=== PATIENT | female | born 1935 | race Caucasian/White ===

== ENCOUNTER 2018-01-18 05:50 | Day surgery (SDC) | payer MEDICARE, OTHER ==
[2018-01-18] MEDS ORDERED: Dextrose 5%-Lactated Ringers 1,000 ML IV SCH (06:30)
[2018-01-18] MEDS ORDERED: fentaNYL 100 MCG/2 ML SDV ONE (07:03)
[2018-01-18] MEDS ORDERED: Propofol 200 MG/20 ML SDV ONE (07:03)
[2018-01-18] MEDS ORDERED: Pantoprazole 40 MG Vial IVPUSH ONE (08:39)
--- NOTE | 2018-01-25 13:55 | OR ---
DATE OF PROCEDURE: 01/18/2018 PREOPERATIVE DIAGNOSES: 1. History of Masterson esophagus. 2. Indications for screening colonoscopy. POSTOPERATIVE DIAGNOSES: 1. 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 2. Intact Shonda fundoplication with slight recurrence of hiatal hernia. 3. Uncomplicated left colonic diverticulosis. OPERATIVE PROCEDURE: 1. Esophagogastroduodenoscopy with biopsy of esophagogastric junction for histologic evaluation. 2. Flexible colonoscopy. ANESTHESIA: IV sedation. INDICATIONS FOR PROCEDURE: An 82-year-old presenting with some recurrent symptoms of gastroesophageal reflux disease. She is status post a previous Shonda fundoplication and also has a history of Masterson esophagus. To evaluate these issues, the patient is undergoing upper GI endoscopy. She is also due for a screening colonoscopy. Potential risks including bleeding and perforation were discussed, and the patient wishes to proceed. DETAILS OF PROCEDURE: The patient was taken to the operating room, placed in left lateral decubitus position. IV sedation was administered after which the upper GI endoscope was passed orally through the length of the esophagus and into the stomach with retroflexion view of the fundus, thereafter through the pyloric channel, and junction of the third and fourth portions of the duodenum. The findings included some mild inflammatory changes at the esophagogastric junction. This was associated with an intact Shonda fundoplication with small recurrence of the hiatal hernia perhaps in the range of a centimeter or so. The bladder was confirmed by retroflexion within the body of the stomach. There was no gross evidence of neoplasia or stricturing, i.e., no signs of Masterson esophagus having become more neoplastic. Biopsies of remainder of the stomach and the visualized portion of the duodenum were unremarkable. Biopsies were then obtained from esophagogastric junction, sent for histologic evaluation. Minimal bleeding from the biopsy sites was seen and the procedure was then concluded. Attention was then taken to the colonoscopy. Initial digital rectal exam was performed, was unremarkable. Colonoscope was then passed into the rectum with retroflexion revealing uncomplicated hemorrhoidal columns. The scope was eventually passed to the level of the cecum. The prep was good with only a small amount of liquid stool being present. The scope was then withdrawn, and the patient was noted to have no evidence of colitis, polyps, or other signs of neoplasia. There was some uncomplicated diverticulosis within the left side of the colon. Otherwise, no additional abnormalities were noted. The scope was then withdrawn, and the procedure concluded. The patient was taken to the recovery room in satisfactory condition. At this point, we will change the patient from omeprazole 20 mg a day to Protonix 40 mg daily. She is instructed to take Tums and/or Gaviscon p.r.n. for heartburn or epigastric pain. She should have a repeat upper endoscopy in 2 years for surveillance of Masterson esophagus. Emeka Elizabeth MD /[id number]
== END 2018-01-18 10:45 | disposition home or self-care (01) ==
LOC: JP.SDS 05:50
PROVIDERS: ATTEND Surgery
DX: Z12.11 Encounter for screening for malignant neoplasm of colon (principal); K57.30 Diverticulosis of large intestine without perforation or abscess without bleeding; K22.70 Barrett's esophagus without dysplasia; K44.9 Diaphragmatic hernia without obstruction or gangrene; K21.9 Gastro-esophageal reflux disease without esophagitis; E74.39 Other disorders of intestinal carbohydrate absorption; E03.9 Hypothyroidism, unspecified; Z79.899 Other long term (current) drug therapy; Z88.1 Allergy status to other antibiotic agents; Z98.890 Other specified postprocedural states
CPT/HCPCS: 43239; 45378; 88305; C9113; J2704; J3010; J7042

== ENCOUNTER 2019-05-29 10:05 | Emergency (ER) | payer MEDICARE, OTHER ==
--- NOTE | 2019-05-29 11:18 | EDM.PDOC ---
ED HPI GENERAL MEDICAL PROBLEM - General Chief Complaint: General Stated Complaint: FEELING DIZZY,WEAK,HOT FLASH Time Seen by Provider: 05/29/19 11:10 Source of Information: Reports: Patient History Limitations: Reports: No Limitations - History of Present Illness INITIAL COMMENTS - FREE TEXT/NARRATIVE: pt arrived with a history in the past month of frequent episodes of vertigo. She had an episode this am which lasted about 10 minutes. Last week she had an episode that lasted for about 4-5 hours. Onset: Other ( short episode today. ) Duration: Hour(s): Location: Reports: Abdomen Associated Symptoms: Reports: No Other Symptoms Headache Pain Score (Numeric/FACES): 2 - Related Data Allergies Allergy/AdvReac Type Severity Reaction Status Date / Time metronidazole AdvReac Nausea and Verified 05/29/19 10:27 Vomiting Home Meds: Home Meds Acetaminophen with Codeine [Acetaminophen-Cod #3] 1 - 2 tab PO Q4HR PRN [History] Levothyroxine [Sythroid] 100 mcg PO DAILY 01/14/18 [History] Multivit-Min/Iron Fum/Folic AC [Ipbwe-Lwxkyna-Deedlmkq Tablet] 1 tab PO DAILY [History] Omeprazole 20 mg PO BIDMEALS 01/14/18 [History] Past Medical History HEENT History: Reports: Cataract, Impaired Vision Other HEENT History: wears glasses Gastrointestinal History: Reports: Cholelithiasis, GERD, Hiatal Hernia, Other ( See Below) Other Gastrointestinal History: Barretts Esophagus Genitourinary History: Reports: None 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: Musculoskeletal History: Reports: Back Pain, Chronic Endocrine/Metabolic History: Reports: Hypothyroidism Oncologic (Cancer) History: Reports: Squamous Cell Carcinoma - Infectious Disease History Infectious Disease History: Reports: Measles - Past Surgical History Head Surgeries/Procedures: Reports: None HEENT Surgical History: Reports: Adenoidectomy, Cataract Surgery, Tonsillectomy GI Surgical History: Reports: Cholecystectomy, Colonoscopy, EGD Female Surgical History: Reports: Hysterectomy Endocrine Surgical History: Reports: None Musculoskeletal Surgical History: Reports: None Oncologic Surgical History: Reports: Other (See Below) Other Oncologic Surgeries/Procedures: removed Dermatological Surgical History: Reports: None Social & Family History - Family History Family Medical History: Noncontributory - Tobacco Use Smoking Status *Q: Never Smoker - Caffeine Use Caffeine Use: Reports: Coffee, Soda, Tea - Recreational Drug Use Recreational Drug Use: No ED ROS GENERAL - Review of Systems Review Of Systems: See Below Constitutional: Reports: No Symptoms HEENT: Reports: No Symptoms Respiratory: Reports: No Symptoms Cardiovascular: Reports: No Symptoms Endocrine: Reports: No Symptoms GI/Abdominal: Reports: No Symptoms : Reports: No Symptoms Musculoskeletal: Reports: No Symptoms Skin: Reports: No Symptoms Neurological: Reports: Dizziness, Other (pt has epiodes where he feels like the room is spinning and she is off balance. ) Psychiatric: Reports: No Symptoms ED EXAM, GENERAL - Physical Exam Exam: See Below Free Text/Narrative:: pt Pt arrived after having an episode of vertigo this am. Exam Limited By: No Limitations General Appearance: Alert, Anxious Ears: Normal TMs Nose: Normal Inspection Throat/Mouth: Normal Inspection Head: Atraumatic Neck: Normal Inspection Respiratory/Chest: No Respiratory Distress Cardiovascular: Regular Rate, Rhythm GI/Abdominal: Soft, Non-Tender (Female) Exam: Deferred Rectal (Female) Exam: Deferred Back Exam: Normal Inspection Course - Vital Signs Last Recorded V/S: Last Vital Signs Temp 35.8 C 05/29/19 10:41 Pulse 65 05/29/19 10:41 Resp 9 L 05/29/19 10:41 BP 138/66 05/29/19 10:41 Pulse Ox 95 05/29/19 10:41 Orthostatic Blood Pressure [ 130/63 Standing] Orthostatic Blood Pressure [ 134/64 Sitting] Orthostatic Blood Pressure [ 138/66 Supine] - Orders/Labs/Meds Orders: Active Orders 24 hr Category Date Time Status CULTURE URINE [RM] Stat Lab 05/29/19 11:35 Received Levofloxacin/Dextrose 5%-Water [Levaquin in D5W 500 MG/ Med 05/29/19 12:13 Active 100 ML] 500 mg Premix Bag 1 bag IV ONETIME Sodium Chloride 0.9% [Normal Saline] 1,000 ml Med 05/29/19 11:45 Active IV ASDIRECTED Medication Orders Sodium Chloride (Normal Saline) 1,000 mls @ 999 mls/hr IV ASDIRECTED RANDY Last Admin: 05/29/19 12:01 Dose: 999 mls/hr Levofloxacin/Dextrose 500 mg/ (Premix) 100 mls @ 100 mls/hr IV ONETIME ONE Stop: 05/29/19 13:12 Last Admin: 05/29/19 12:20 Dose: 100 mls/hr Labs: Laboratory Tests 05/29/19 05/29/19 05/29/19 Range/Units 11:01 11:01 11:08 WBC 6.4 (4.5-11.0) K/uL RBC 4.48 (3.30-5.50) M/uL Hgb 13.8 (12.0-15.0) g/dL Hct 42.5 (36.0-48.0) % MCV 95 (80-98) fL MCH 31 (27-31) pg MCHC 33 (32-36) % Plt Count 271 (150-400) K/uL Neut % (Auto) 51 (36-66) % Lymph % (Auto) 34 (24-44) % [place] % (Auto) 10 H (2-6) % Eos % (Auto) 4 (2-4) % Baso % (Auto) 1 (0-1) % Sodium 140 (140-148) mmol/L Potassium 4.1 (3.6-5.2) mmol/L Chloride 101 (100-108) mmol/L Carbon Dioxide 28 (21-32) mmol/L Anion Gap 10.9 (5.0-14.0) mmol/L BUN 17 (7-18) mg/dL Creatinine 1.2 H (0.6-1.0) mg/dL Est Cr Clr Drug Dosing 31.96 mL/min Estimated GFR (MDRD) 43 L (>60) Glucose 118 H (74-106) mg/dL Calcium 9.1 (8.5-10.1) mg/dL Total Bilirubin 0.5 (0.2-1.0) mg/dL AST 14 L (15-37) U/L ALT 23 (12-78) U/L Alkaline Phosphatase 81 (46-116) U/L Total Protein 7.6 (6.4-8.2) g/dL Albumin 3.6 (3.4-5.0) g/dL Globulin 4.0 H (2.3-3.5) g/dL Albumin/Globulin Ratio 0.9 L (1.2-2.2) Urine Color Yellow (YELLOW) Urine Appearance Cloudy A (CLEAR) Urine pH 6.5 (5.0-8.0) Ur Specific [place] 1.025 (1.008-1.030) Urine Protein Negative (NEGATIVE) mg/dL Urine Glucose (UA) Negative (NEGATIVE) mg/dL Urine Ketones Negative (NEGATIVE) mg/dL Urine Occult Blood Negative (NEGATIVE) Urine Nitrite Negative (NEGATIVE) Urine Bilirubin Negative (NEGATIVE) Urine Urobilinogen 0.2 (0.2-1.0) EU/dL Ur Leukocyte Esterase Moderate H (NEGATIVE) Urine RBC Not seen (0-5) Urine WBC 50-75 H (0-5) Ur Epithelial Cells Few Amorphous Sediment Not seen Urine Bacteria Many Urine Mucus Not seen Meds: Medications Generic Name Dose Route Start Last Admin Trade Name Freq PRN Reason Stop Dose Admin Sodium Chloride 1,000 mls @ 999 mls/hr 05/29/19 11:45 05/29/19 12:01 Normal Saline IV 999 mls/hr ASDIRECTED RANDY Administration Levofloxacin/Dextrose 500 mg/ 100 mls @ 100 mls/hr 05/29/19 12:13 05/29/19 12 :20 Premix IV 05/29/19 13:12 100 mls/hr ONETIME ONE Administration - Re-Assessments/Exams Free Text/Narrative Re-Assessment/Exam: 05/29/19 12:56 cat scan of the head is neg. Her urine is infected. She is dehydrated. Departure - Departure Time of Disposition: 12:17 Disposition: Home, Self-Care 01 Condition: Fair Clinical Impression: UTI (urinary tract infection), Vertigo, Dehydration - Discharge Information Referrals: Ezio Villarreal MD [Primary Care Provider] - Forms: ED Department Discharge Care Plan Goals: push fluids, cipro 500mg bid for 7 days, use yogurt or probiotic while on the antibiotic, antivert 25 tid as needed for vertigo, follow up with Dr Villarreal in 1 week. Sepsis Event Note - Evaluation Sepsis Screening Result: No Definite Risk - Focused Exam Vital Signs: Vital Signs Temp Pulse Resp BP Pulse Ox 05/29/19 10:41 35.8 C 65 9 L 138/66 95 05/29/19 10:25 35.8 C 66 17 130/63 96 Date Exam was Performed: 05/29/19 Time Exam was Performed: 13:11 - My Orders Last 24 Hours: My Active Orders 05/29/19 11:35 CULTURE URINE [RM] Stat 05/29/19 11:45 Sodium Chloride 0.9% [Normal Saline] 1,000 ml IV ASDIRECTED 05/29/19 12:13 Levofloxacin/Dextrose 5%-Water [Levaquin in D5W 500 MG/100 ML] 500 mg Premix Bag 1 bag IV ONETIME - Assessment/Plan Last 24 Hours: My Active Orders 05/29/19 11:35 CULTURE URINE [RM] Stat 05/29/19 11:45 Sodium Chloride 0.9% [Normal Saline] 1,000 ml IV ASDIRECTED 05/29/19 12:13 Levofloxacin/Dextrose 5%-Water [Levaquin in D5W 500 MG/100 ML] 500 mg Premix Bag 1 bag IV ONETIME
[2019-05-29] MEDS ORDERED: Sodium Chloride 0.9% 1,000 ML IV SCH (11:45)
--- NOTE | 2019-05-29 11:59 | CRLCT ---
Episodes of vertical. Technique noncontrast head CT scan No comparison studies are available. FINDINGS: Axial noncontrast images through the brain parenchyma demonstrates no acute intracranial hemorrhage or mass. No midline shift. No abnormal extra-axial air fluid collections. Paranasal sinuses mastoid air cells, skull and scalp appears unremarkable. IMPRESSION: No acute intracranial hemorrhage or mass. Please note that all CT scans at this facility use dose modulation, iterative reconstruction, and/or weight-based dosing when appropriate to reduce radiation dose to as low as reasonably achievable. Dictated by Jessica Mcneil MD @ May 29 2019 11:54AM Signed by Dr. Jessica Mcneil @ May 29 2019 11:58AM
[2019-05-29] MEDS ORDERED: Levofloxacin/Dextrose 5%-Water 500 MG in Premix Bag 1 BAG IV ONE (12:13)
== END 2019-05-29 14:00 | disposition home or self-care (01) ==
LOC: JP.ED 10:05
DX: E86.0 Dehydration (principal); N39.0 Urinary tract infection, site not specified; K21.9 Gastro-esophageal reflux disease without esophagitis; E03.9 Hypothyroidism, unspecified; Z88.8 Allergy status to other drugs, medicaments and biological substances; Z79.899 Other long term (current) drug therapy
CPT/HCPCS: 36415; 70450; 80053; 81001; 85025; 87086; 87088; 87186; 96365; 99284; J1956; J7030; 99283

== ENCOUNTER 2019-07-25 21:30 | Emergency (ER) | payer MEDICARE, OTHER ==
[2019-07-25] MEDS ORDERED: methylPREDNISolone Sodium Succinate 125 MG/2 ML SDV IVPUSH ONE (22:05)
[2019-07-25] MEDS ORDERED: Albuterol 0.083% 2.5 MG/3 ML Neb Soln NEB ONE (22:05)
--- NOTE | 2019-07-25 22:09 | EDM.PDOC ---
ED HPI GENERAL MEDICAL PROBLEM - General Chief Complaint: Respiratory Problem Stated Complaint: WHEEZING, COUGH Time Seen by Provider: 07/25/19 22:07 Source of Information: Reports: Patient History Limitations: Reports: No Limitations - History of Present Illness INITIAL COMMENTS - FREE TEXT/NARRATIVE: pt had influ mid June and she has had a cough since that time. She did suddenly become sob tonight. Onset: Sudden, Other ( the sob started suddenly tonight. ) Duration: Hour(s): Location: Reports: Chest Associated Symptoms: Reports: Cough, Shortness of Breath chest Pain Score (Numeric/FACES): 1 - Related Data Allergies Allergy/AdvReac Type Severity Reaction Status Date / Time metronidazole AdvReac Nausea and Verified 07/25/19 21:50 Vomiting Home Meds: Home Meds Levothyroxine [Sythroid] 100 mcg PO DAILY 01/14/18 [History] Multivit-Min/Iron Fum/Folic AC [Jzmxf-Naxgjaj-Zfdggtio Tablet] 1 tab PO DAILY [History] Omeprazole 20 mg PO DAILY 01/14/18 [History] Albuterol Sulfate [Albuterol Sulfate Hfa] 1 - 2 puff INH Q4H PRN 07/25/19 [ History] Aspirin 81 mg PO DAILY 07/25/19 [History] Past Medical History HEENT History: Reports: Cataract, Impaired Vision Other HEENT History: wears glasses Gastrointestinal History: Reports: Cholelithiasis, GERD, Hiatal Hernia, Other ( See Below) Other Gastrointestinal History: Barretts Esophagus Genitourinary History: Reports: None 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: Musculoskeletal History: Reports: Back Pain, Chronic Endocrine/Metabolic History: Reports: Hypothyroidism Oncologic (Cancer) History: Reports: Squamous Cell Carcinoma - Infectious Disease History Infectious Disease History: Reports: Measles - Past Surgical History Head Surgeries/Procedures: Reports: None HEENT Surgical History: Reports: Adenoidectomy, Cataract Surgery, Tonsillectomy GI Surgical History: Reports: Cholecystectomy, Colonoscopy, EGD Female Surgical History: Reports: Hysterectomy Endocrine Surgical History: Reports: None Musculoskeletal Surgical History: Reports: None Oncologic Surgical History: Reports: Other (See Below) Other Oncologic Surgeries/Procedures: removed Dermatological Surgical History: Reports: None Social & Family History - Family History Family Medical History: Noncontributory - Tobacco Use Smoking Status *Q: Never Smoker - Caffeine Use Caffeine Use: Reports: Coffee - Recreational Drug Use Recreational Drug Use: No ED ROS GENERAL - Review of Systems Review Of Systems: See Below Constitutional: Reports: No Symptoms HEENT: Reports: No Symptoms Respiratory: Reports: Shortness of Breath, Wheezing, Cough, Other (pt did have resp precautions taken. ) Cardiovascular: Reports: No Symptoms Endocrine: Reports: No Symptoms GI/Abdominal: Reports: No Symptoms : Reports: No Symptoms Musculoskeletal: Reports: No Symptoms Skin: Reports: No Symptoms ED EXAM, GENERAL - Physical Exam Exam: See Below Free Text/Narrative:: pt had a meal with her friend marie and she suddenly developed sob, She has had some wheezing since she had influ. She called Dr Villarreal recently and he ordered a albuterol inhaler. Exam Limited By: No Limitations General Appearance: Alert, Anxious, Moderate Distress, Other (pt is very sob but she is not havng any chest pain. She has not got a fever and she has not traveled recently. ) Ears: Normal TMs Nose: Normal Inspection Throat/Mouth: Normal Inspection Head: Atraumatic Neck: Normal Inspection Respiratory/Chest: Decreased Breath Sounds, Rhonchi, Wheezing, Other (pt was quite labored with her breathing but she did have a good o2 sat. ) Cardiovascular: Regular Rate, Rhythm GI/Abdominal: Soft, Non-Tender (Female) Exam: Deferred Rectal (Female) Exam: Deferred Back Exam: Normal Inspection Extremities: Normal Inspection Neurological: Alert, Oriented, Normal Cognition Psychiatric: Normal Affect Course - Vital Signs Last Recorded V/S: Last Vital Signs Temp 36.2 C 07/25/19 21:44 Pulse 89 07/25/19 21:44 Resp 22 H 07/25/19 21:44 BP 160/67 H 07/25/19 21:44 Pulse Ox 97 07/25/19 21:44 - Orders/Labs/Meds Labs: Laboratory Tests 07/25/19 07/25/19 07/25/19 Range/Units 22:30 22:30 22:30 WBC 8.7 (4.5-11.0) K/uL RBC 4.32 (3.30-5.50) M/uL Hgb 13.2 (12.0-15.0) g/dL Hct 40.5 (36.0-48.0) % MCV 94 (80-98) fL MCH 31 (27-31) pg MCHC 33 (32-36) % Plt Count 356 (150-400) K/uL Neut % (Auto) 49 (36-66) % Lymph % (Auto) 33 (24-44) % [place] % (Auto) 9 H (2-6) % Eos % (Auto) 8 H (2-4) % Baso % (Auto) 1 (0-1) % Sodium 138 L (140-148) mmol/L Potassium 4.2 (3.6-5.2) mmol/L Chloride 101 (100-108) mmol/L Carbon Dioxide 27 (21-32) mmol/L Anion Gap 14.2 H (5.0-14.0) mmol/L BUN 17 (7-18) mg/dL Creatinine 1.2 H (0.6-1.0) mg/dL Est Cr Clr Drug Dosing 31.96 mL/min Estimated GFR (MDRD) 43 L (>60) Glucose 96 (74-106) mg/dL Calcium 9.6 (8.5-10.1) mg/dL Total Bilirubin 0.3 (0.2-1.0) mg/dL AST 15 (15-37) U/L ALT 24 (12-78) U/L Alkaline Phosphatase 86 (46-116) U/L Troponin I < 0.017 (0.000-0.056) ng/mL Total Protein 7.8 (6.4-8.2) g/dL Albumin 3.4 (3.4-5.0) g/dL Globulin 4.4 H (2.3-3.5) g/dL Albumin/Globulin Ratio 0.8 L (1.2-2.2) Urine Color (YELLOW) Urine Appearance (CLEAR) Urine pH (5.0-8.0) Ur Specific [place] (1.008-1.030) Urine Protein (NEGATIVE) mg/dL Urine Glucose (UA) (NEGATIVE) mg/dL Urine Ketones (NEGATIVE) mg/dL Urine Occult Blood (NEGATIVE) Urine Nitrite (NEGATIVE) Urine Bilirubin (NEGATIVE) Urine Urobilinogen (0.2-1.0) EU/dL Ur Leukocyte Esterase (NEGATIVE) Urine RBC (0-5) Urine WBC (0-5) Ur Epithelial Cells Amorphous Sediment Urine Bacteria Urine Mucus 07/25/19 Range/Units 22:39 WBC (4.5-11.0) K/uL RBC (3.30-5.50) M/uL Hgb (12.0-15.0) g/dL Hct (36.0-48.0) % MCV (80-98) fL MCH (27-31) pg MCHC (32-36) % Plt Count (150-400) K/uL Neut % (Auto) (36-66) % Lymph % (Auto) (24-44) % [place] % (Auto) (2-6) % Eos % (Auto) (2-4) % Baso % (Auto) (0-1) % Sodium (140-148) mmol/L Potassium (3.6-5.2) mmol/L Chloride (100-108) mmol/L Carbon Dioxide (21-32) mmol/L Anion Gap (5.0-14.0) mmol/L BUN (7-18) mg/dL Creatinine (0.6-1.0) mg/dL Est Cr Clr Drug Dosing mL/min Estimated GFR (MDRD) (>60) Glucose (74-106) mg/dL Calcium (8.5-10.1) mg/dL Total Bilirubin (0.2-1.0) mg/dL AST (15-37) U/L ALT (12-78) U/L Alkaline Phosphatase (46-116) U/L Troponin I (0.000-0.056) ng/mL Total Protein (6.4-8.2) g/dL Albumin (3.4-5.0) g/dL Globulin (2.3-3.5) g/dL Albumin/Globulin Ratio (1.2-2.2) Urine Color Yellow (YELLOW) Urine Appearance Clear (CLEAR) Urine pH 5.5 (5.0-8.0) Ur Specific [place] 1.020 (1.008-1.030) Urine Protein Negative (NEGATIVE) mg/dL Urine Glucose (UA) Negative (NEGATIVE) mg/dL Urine Ketones Negative (NEGATIVE) mg/dL Urine Occult Blood Negative (NEGATIVE) Urine Nitrite Negative (NEGATIVE) Urine Bilirubin Negative (NEGATIVE) Urine Urobilinogen 0.2 (0.2-1.0) EU/dL Ur Leukocyte Esterase Trace H (NEGATIVE) Urine RBC 0-5 (0-5) Urine WBC 0-5 (0-5) Ur Epithelial Cells Few Amorphous Sediment Not seen Urine Bacteria Few Urine Mucus Not seen Meds: Medications Discontinued Medications Generic Name Dose Route Start Last Admin Trade Name Alena BURKETTN Reason Stop Dose Admin Albuterol 2.5 mg 07/25/19 22:05 07/25/19 22:30 Proventil Neb Soln NEB 07/25/19 22:06 2.5 mg ONETIME ONE Administration Methylprednisolone Sodium Succinate 125 mg 07/25/19 22:05 07/25/19 22:30 Solu-Medrol IVPUSH 07/25/19 22:06 125 mg ONETIME ONE Administration - Re-Assessments/Exams Free Text/Narrative Re-Assessment/Exam: 07/27/19 07:20 pt had a chest xray which did not show any infiltrates. She does not have a fever but she is very whezzy. She was gioven a albuterol neb and solumedrol and she did improve alot. Her wbc was not elevated. Departure - Departure Time of Disposition: 23:39 Disposition: Home, Self-Care 01 Condition: Fair Clinical Impression: Bronchial spasm - Discharge Information Instructions: Bronchospasm, Adult, [id number] Referrals: PCP,None [Primary Care Provider] - Forms: ED Department Discharge Care Plan Goals: predisone 10mg 2 tabs tomorrow and 1 tab daily for 5 days, albuterol premixed 2.5 in 3 cc, appt with Dr Villarreal Thursday to recheck her breathing problem. Use the nebulizer qid. Sepsis Event Note - Evaluation Sepsis Screening Result: No Definite Risk - Focused Exam Date Exam was Performed: 07/27/19 Time Exam was Performed: 07:16
--- NOTE | 2019-07-25 23:10 | CRLCR ---
INDICATION: Shortness of breath TECHNIQUE: Chest 1 view COMPARISON: None FINDINGS: Cardiovascular and mediastinum: Normal heart size with atherosclerotic calcification. Lungs and pleural spaces: No pleural effusion or pneumothorax. Basilar discoid atelectasis. Bilateral bronchial wall thickening. Bones and soft tissues: No significant findings. IMPRESSION: Bilateral bronchial wall thickening which can be seen in bronchitis or reactive airways disease with basilar discoid atelectasis. Dictated by Moisés Cnatu MD @ Jul 25 2019 11:06PM Signed by Dr. Moisés Cantu @ Jul 25 2019 11:09PM
== END 2019-07-26 00:11 | disposition home or self-care (01) ==
LOC: JP.ED 21:30
DX: J98.01 Acute bronchospasm (principal); K21.9 Gastro-esophageal reflux disease without esophagitis; E03.9 Hypothyroidism, unspecified; Z79.82 Long term (current) use of aspirin; Z79.899 Other long term (current) drug therapy; Z88.8 Allergy status to other drugs, medicaments and biological substances
CPT/HCPCS: 36415; 71045; 80053; 81001; 84484; 85025; 93005; 93010; 94640; 96374; 99284; 99285; J2930

== ENCOUNTER 2019-08-05 04:50 | Emergency (ER) | payer MEDICARE, OTHER ==
--- NOTE | 2019-08-05 05:31 | EDM.PDOC ---
ED HPI GENERAL MEDICAL PROBLEM - General Chief Complaint: Respiratory Problem Stated Complaint: SOB/COUGH Time Seen by Provider: 08/05/19 05:15 Source of Information: Reports: Patient, Old Records, RN History Limitations: Reports: No Limitations - History of Present Illness INITIAL COMMENTS - FREE TEXT/NARRATIVE: 83 yo female presents for a cough. She sometimes coughs hard enough to result in SOB. No fever. Cough is nonproductive. Tried Mucinex without relief. Drove herself to the ER. Onset: Gradual Duration: Week(s): (4 weeks since she had Influenza), Constant Location: Reports: Chest Quality: Reports: Other (no pain) Severity: Moderate (cough) Improves with: Reports: None Worsens with: Reports: Other (unknown) Context: Reports: Other (see HPI) Associated Symptoms: Reports: Cough. 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 without relief.) Headache Pain Score (Numeric/FACES): 7 - Related Data Allergies Allergy/AdvReac Type Severity Reaction Status Date / Time metronidazole AdvReac Nausea and Verified 08/05/19 04:52 Vomiting Home Meds: Home Meds Levothyroxine [Sythroid] 100 mcg PO DAILY 01/14/18 [History] Multivit-Min/Iron Fum/Folic AC [Prcty-Nkarocw-Mtthqudw Tablet] 1 tab PO DAILY [History] Omeprazole 20 mg PO DAILY 01/14/18 [History] Albuterol Sulfate [Albuterol Sulfate Hfa] 1 - 2 puff INH Q4H PRN 07/25/19 [ History] Aspirin 81 mg PO DAILY 07/25/19 [History] Albuterol Sulfate 2.5 mg IH Q4H PRN 08/05/19 [History] Past Medical History HEENT History: Reports: Cataract, Impaired Vision Other HEENT History: wears glasses Gastrointestinal History: Reports: Cholelithiasis, GERD, Hiatal Hernia, Other ( See Below) Other Gastrointestinal History: Barretts Esophagus Genitourinary History: Reports: None 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: Musculoskeletal History: Reports: Back Pain, Chronic Endocrine/Metabolic History: Reports: Hypothyroidism Oncologic (Cancer) History: Reports: Squamous Cell Carcinoma - Infectious Disease History Infectious Disease History: Reports: Measles - Past Surgical History Head Surgeries/Procedures: Reports: None HEENT Surgical History: Reports: Adenoidectomy, Cataract Surgery, Tonsillectomy GI Surgical History: Reports: Cholecystectomy, Colonoscopy, EGD Female Surgical History: Reports: Hysterectomy Endocrine Surgical History: Reports: None Musculoskeletal Surgical History: Reports: None Oncologic Surgical History: Reports: Other (See Below) Other Oncologic Surgeries/Procedures: removed Dermatological Surgical History: Reports: None Social & Family History - Family History Family Medical History: Noncontributory - Caffeine Use Caffeine Use: Reports: Coffee - Recreational Drug Use Recreational Drug Use: No ED ROS GENERAL - Review of Systems Review Of Systems: See Below Constitutional: Reports: No Symptoms HEENT: Reports: Rhinitis (minimal) Respiratory: Reports: Shortness of Breath (only when she coughs hard), Cough. Denies: Wheezing, Pleuritic Chest Pain, Sputum, Hemoptysis Cardiovascular: Reports: No Symptoms GI/Abdominal: Reports: No Symptoms : Reports: No Symptoms Musculoskeletal: Reports: No Symptoms Skin: Reports: No Symptoms Neurological: Reports: No Symptoms ED EXAM, GENERAL - Physical Exam Exam: See Below Exam Limited By: No Limitations General Appearance: Alert, WD/WN, No Apparent Distress Eye Exam: Bilateral Eye: Normal Inspection Ears: Normal External Exam, Normal Canal, Hearing Grossly Normal, Normal TMs Ear Exam: Bilateral Ear: Auricle Normal, Canal Normal, TM normal Nose: Normal Inspection, No Blood Throat/Mouth: Normal Inspection, Normal Lips, Normal Oropharynx, Normal Voice, No Airway Compromise Head: Atraumatic, Normocephalic Neck: Normal Inspection Respiratory/Chest: No Respiratory Distress, Lungs Clear, No Accessory Muscle Use , Decreased Breath Sounds, Other (frequent dry cough). No: Wheezing Cardiovascular: Regular Rate, Rhythm, No Edema Back Exam: Normal Inspection Extremities: Normal Inspection, Normal Range of Motion, Non-Tender, No Pedal Edema Neurological: Alert, Oriented, CN II-XII Intact, Normal Cognition, No Motor/ Sensory Deficits Psychiatric: Normal Affect, Normal Mood Skin Exam: Warm, Dry, Intact, Normal Color, No Rash Course - Vital Signs Last Recorded V/S: Last Vital Signs Temp 35.9 C L 08/05/19 05:05 Pulse 102 H 08/05/19 05:05 Resp 20 08/05/19 05:05 BP 163/79 H 08/05/19 05:05 Pulse Ox 95 08/05/19 05:05 - Orders/Labs/Meds Labs: Laboratory Tests 08/05/19 Range/Units 05:28 WBC 12.4 H (4.5-11.0) K/uL RBC 4.32 (3.30-5.50) M/uL Hgb 13.5 (12.0-15.0) g/dL Hct 40.7 (36.0-48.0) % MCV 94 (80-98) fL MCH 31 (27-31) pg MCHC 33 (32-36) % Plt Count 395 (150-400) K/uL Departure - Departure Time of Disposition: 05:55 Disposition: Home, Self-Care 01 Condition: Fair Clinical Impression: Cough, Bronchitis - Discharge Information *PRESCRIPTION DRUG MONITORING PROGRAM REVIEWED*: No *COPY OF PRESCRIPTION DRUG MONITORING REPORT IN PATIENT JOSE R: No Instructions: Cough, Adult, [id number] Referrals: Ezio Villarreal MD [Primary Care Provider] - Forms: ED Department Discharge Additional Instructions: Take Robitussin AC as directed for cough. Take doxycycline as directed for bronchitis. See your doctor for recheck next week, sooner if worse. Sepsis Event Note - Evaluation Sepsis Screening Result: No Definite Risk - Focused Exam Vital Signs: Vital Signs Temp Pulse Resp BP Pulse Ox 08/05/19 05:05 35.9 C L 102 H 20 163/79 H 95 Date Exam was Performed: 08/05/19 Time Exam was Performed: 05:43
== END 2019-08-05 06:01 | disposition home or self-care (01) ==
LOC: JP.ED 04:50
DX: J40 Bronchitis, not specified as acute or chronic (principal); K21.9 Gastro-esophageal reflux disease without esophagitis; Z79.899 Other long term (current) drug therapy; Z88.8 Allergy status to other drugs, medicaments and biological substances; E03.9 Hypothyroidism, unspecified
CPT/HCPCS: 36415; 85027; 99283; 99284

== ENCOUNTER → 2020-01-23 | Day surgery (SDC) | payer MEDICARE, OTHER ==
[~2020-01-23] MED LIST: Dextrose 5%-Lactated Ringers 1,000 ML IV SCH; Propofol 200 MG/20 ML SDV ONE; fentaNYL 100 MCG/2 ML SDV ONE
--- NOTE | 2020-01-27 09:37 | OR ---
DATE OF PROCEDURE: 01/23/2020 SURGEON: Emeka Elizabeth MD PREOPERATIVE DIAGNOSIS: History of Masterson's esophagus. POSTOPERATIVE DIAGNOSIS: History of Masterson's esophagus. OPERATIVE PROCEDURE: Upper GI endoscopy with: 1. Biopsies of esophagogastric junction for histologic evaluation. 2. Biopsies of antrum for CLOtest. ANESTHESIA: IV sedation. INDICATION FOR PROCEDURE: This is an 84-year-old female presenting here for followup endoscopy for surveillance of her Masterson's esophagus. Presently is on omeprazole 40 mg a day and has good symptom control with that. Plan is to proceed with upper GI endoscopy with biopsies as indicated. Potential risks including bleeding and perforation were discussed, and the patient wishes to proceed. DETAILS OF PROCEDURE: The patient was taken to the operating room and placed in a left lateral decubitus position. IV sedation was administered after which the upper GI endoscope was passed orally through the esophagus and into the stomach with retroflexion view of the fundus, thereafter through the pyloric channel into the proximal duodenum. Findings included normal hypopharynx, larynx, upper esophageal sphincter, and esophageal body. At the distal esophagus the patient was noted to have roughly 5 cm hiatal hernia. There was significant upward extension of the gastroesophageal junction mucosal line along with some islands of columnar mucosa up into the esophagus with minimal inflammation grossly seen. Within the stomach, apart from the hiatal hernia no significant problems were noted and the pyloric channel and proximal duodenum were unremarkable. At this point to assess patient's current H. pylori status and CLOtest, biopsies were obtained from the antrum and multiple biopsies focusing on the area of columnar mucosa were made in the distal esophagus. Minimal bleeding from the biopsy sites was seen and the procedure was then concluded. Assuming that there is no progression towards dysplasia in the current biopsies, the patient should undergo a repeat upper endoscopy in roughly 2 years. Emeka Elizabeth MD /[id number]
== END ==
LOC: JP.SDS 09:33
PROVIDERS: ATTEND Surgery
DX: K22.70 Barrett's esophagus without dysplasia (principal); K44.9 Diaphragmatic hernia without obstruction or gangrene
CPT/HCPCS: 43239; 87081; 88305; J2704; J3010; J7121

== ENCOUNTER 2021-03-19 11:53 | Inpatient (IN) | payer MEDICARE, OTHER ==
--- NOTE | 2021-03-19 12:36 | EDM.PDOC ---
ED HPI GENERAL MEDICAL PROBLEM - General Chief Complaint: Respiratory Problem Stated Complaint: MED[facility] Time Seen by Provider: 03/19/21 12:20 Source of Information: Reports: Patient, EMS History Limitations: Reports: No Limitations - History of Present Illness INITIAL COMMENTS - FREE TEXT/NARRATIVE: 85-year-old female with weakness, cough, body aches for the past week. Intermittent fevers. Today she just felt so lousy that her son called the ambulance, they found her to have O2 saturations in the low 80s. She did respond to supplemental oxygen but has an increased respiratory rate. Shortness of breath is actually not one of her complaints. She mostly complains of fevers, chills, weakness and body aches. She did not get the Covid vaccine. She is usually healthy baseline. Denies nausea or vomiting. No chest pain. Onset: Gradual Duration: Day(s): (Has been ill for the past 7 days) Improves with: Reports: None Worsens with: Reports: None Associated Symptoms: Reports: Cough, Fever/Chills, Malaise, Weakness, Other (Generalized body aches). Denies: Chest Pain Middle Back Pain Score (Numeric/FACES): 7 - Related Data Allergies Allergy/AdvReac Type Severity Reaction Status Date / Time metronidazole AdvReac Nausea and Verified 03/19/21 12:12 Vomiting Home Meds: Home Meds Levothyroxine [Sythroid] 100 mcg PO DAILY 01/14/18 [History] Multivit-Min/Iron Fum/Folic AC [Iowgw-Jmpmkkd-Loorrshz Tablet] 1 tab PO DAILY 01/14/18 [History] Omeprazole 40 mg PO DAILY 01/14/18 [History] Aspirin 81 mg PO DAILY 07/25/19 [History] Calcium Carb/Vitamin D3/Vit K1 [Calcium + D Soft Chewable Tab] 1 tab PO DAILY 01/20/20 [History] Past Medical History HEENT History: Reports: Cataract, Impaired Vision Other HEENT History: wears glasses Respiratory History: Reports: Bronchitis, Recurrent Gastrointestinal History: Reports: Cholelithiasis, Diverticulosis, GERD, Hiatal Hernia, Other (See Below) Other Gastrointestinal History: Barretts Esophagus Genitourinary History: Reports: None 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: Musculoskeletal History: Reports: Arthritis, Back Pain, Chronic Neurological History: Reports: Vertigo Endocrine/Metabolic History: Reports: Hypothyroidism Oncologic (Cancer) History: Reports: Squamous Cell Carcinoma Dermatologic History: Reports: None - Infectious Disease History Infectious Disease History: Reports: Measles - Past Surgical History Head Surgeries/Procedures: Reports: None HEENT Surgical History: Reports: Adenoidectomy, Cataract Surgery, Tonsillectomy GI Surgical History: Reports: Cholecystectomy, Colonoscopy, EGD Female Surgical History: Reports: None Endocrine Surgical History: Reports: None Neurological Surgical History: Reports: None Musculoskeletal Surgical History: Reports: None Oncologic Surgical History: Reports: Other (See Below) Other Oncologic Surgeries/Procedures: removed Dermatological Surgical History: Reports: Skin Biopsy Social & Family History - Family History Family Medical History: No Pertinent Family History - Tobacco Use Tobacco Use Status *Q: Never Tobacco User - Caffeine Use Caffeine Use: Reports: Coffee - Recreational Drug Use Recreational Drug Use: No ED ROS GENERAL - Review of Systems Review Of Systems: See Below Constitutional: Reports: Fever, Chills, Malaise, Decreased Appetite HEENT: Denies: Throat Pain Respiratory: Reports: Wheezing, Cough. Denies: Shortness of Breath Cardiovascular: Denies: Chest Pain, Palpitations GI/Abdominal: Denies: Abdominal Pain, Nausea, Vomiting Musculoskeletal: Reports: Muscle Pain Skin: Denies: Jaundice, Rash Neurological: Reports: Dizziness, Weakness. Denies: Headache Psychiatric: Reports: No Symptoms ED EXAM, GENERAL - Physical Exam Exam: See Below Exam Limited By: No Limitations General Appearance: Alert, Mild Distress (Patient looks fatigue, tired, mild respiratory distress with increased respiratory effort) Eye Exam: Bilateral Eye: Normal Inspection Head: Atraumatic Respiratory/Chest: Respiratory Distress (Mild increased respiratory effort, significant basilar rales bilaterally and diffuse expiratory wheezes) Cardiovascular: Regular Rate, Rhythm GI/Abdominal: Soft, Non-Tender Extremities: Normal Inspection. No: Pedal Edema Neurological: Alert, Oriented Psychiatric: Flat Affect Skin Exam: Warm, Dry Course - Vital Signs Last Recorded V/S: Last Vital Signs Temp 96.8 F L 03/20/21 08:00 Pulse 63 03/20/21 08:00 Resp 26 H 03/20/21 08:00 BP 104/61 03/20/21 08:00 Pulse Ox 90 L 03/20/21 08:00 - Orders/Labs/Meds Orders: Active Orders 24 hr Category Date Time Status CULTURE BLOOD [BC] Urgent Lab 03/19/21 12:35 Received CULTURE BLOOD [BC] Urgent Lab 03/19/21 12:45 Received Blood Culture x2 Reflex Set [OM.PC] Urgent Oth 03/19/21 12:31 Ordered Medication Orders Acetaminophen (Acetaminophen 325 Mg Tab) 650 mg PO Q4H PRN PRN Reason: Pain (Mild 1-3)/fever Last Admin: 03/20/21 09:59 Dose: 650 mg Documented by: Admin: 03/20/21 02:47 Dose: 650 mg Documented by: Admin: 03/19/21 18:14 Dose: 650 mg Documented by: DELROY Aspirin (Aspirin 81 Mg Tab.Chew) 81 mg PO DAILY [facility] Last Admin: 03/20/21 08:02 Dose: 81 mg Documented by: AAKASH Benzonatate (Benzonatate 100 Mg Cap) 100 mg PO TID PRN PRN Reason: Cough Calcium Carbonate/Glycine (Calcium Carbonate 500 Mg Tab.Chew) 1,000 mg PO Q2H PRN PRN Reason: Indigestion Last Admin: 03/19/21 20:32 Dose: 1,000 mg Documented by: TANA Dexamethasone (Dexamethasone 4 Mg/Ml Sdv) 6 mg IVPUSH Q24H [facility] Enoxaparin Sodium (Enoxaparin 30 Mg/0.3 Ml Syringe) 30 mg SUBCUT Q24H [facility] Last Admin: 03/19/21 18:15 Dose: 30 mg Documented by: DELROY Guaifenesin/Dextromethorphan (Guaifenesin/Dextromethorphan 100-10 Mg/5 Ml Soln 10 Ml Cup) 10 ml PO Q4H PRN PRN Reason: Cough Remdesivir 100 mg/ Sodium (Chloride) 100 mls @ 100 mls/hr IV Q24H [facility] Stop: 03/23/21 14:59 Levothyroxine Sodium (Levothyroxine 100 Mcg Tab) 100 mcg PO ACBREAKFAST [facility] Last Admin: 03/20/21 07:52 Dose: 100 mcg Documented by: AAKASH Lorazepam (Lorazepam 2 Mg/Ml Sdv) 0.5 mg IVPUSH Q4H PRN PRN Reason: Nausea/Vomiting Magnesium Hydroxide (Magnesium Hydroxide 400 Mg/5 Ml Susp 30 Ml Cup) 30 ml PO Q12H PRN PRN Reason: Constipation Melatonin (Melatonin 3 Mg Tab) 9 mg PO BEDTIME PRN PRN Reason: sleep Ondansetron HCl (Ondansetron 4 Mg/2 Ml Sdv) 4 mg IV Q6H PRN PRN Reason: Nausea/Vomiting Ondansetron HCl (Ondansetron 4 Mg Tab.Dis) 4 mg PO Q6H PRN PRN Reason: Nausea able to take PO Last Admin: 03/20/21 10:00 Dose: 4 mg Documented by: AAKASH Pantoprazole Sodium (Pantoprazole 40 Mg Tab.Cr) 40 mg PO ACBREAKFAST RANDY Last Admin: 03/20/21 07:53 Dose: 40 mg Documented by: AAKASH Senna/Docusate Sodium (Docusate Sodium/Sennosides 50-8.6 Mg Tab) 1 tab PO BID PRN PRN Reason: Constipation Labs: Laboratory Tests 03/19/21 03/19/21 03/19/21 Range/Units 12:13 12:35 12:35 WBC 5.1 (4.5-11.0) K/uL RBC 4.84 (3.30-5.50) M/uL Hgb 14.9 (12.0-15.0) g/dL Hct 43.6 (36.0-48.0) % MCV 90 (80-98) fL MCH 31 (27-31) pg MCHC 34 (32-36) % Plt Count 159 (150-400) K/uL Neut % (Auto) 72.1 H (36-66) % Lymph % (Auto) 17.6 L (24-44) % [place] % (Auto) 9.5 H (2-6) % Eos % (Auto) 0.4 L (2-4) % Baso % (Auto) 0.4 (0-1) % D-Dimer, Quantitative (0.0-500.0) ng/mL Sodium 132 L (140-148) mmol/L Potassium 3.7 (3.6-5.2) mmol/L Chloride 96 L (100-108) mmol/L Carbon Dioxide 26 (21-32) mmol/L Anion Gap 13.7 (5.0-14.0) mmol/L BUN 28 H D (7-18) mg/dL Creatinine 1.5 H (0.6-1.0) mg/dL Est Cr Clr Drug Dosing 23.68 mL/min Estimated GFR (MDRD) 33 L (>60) Glucose 97 (74-106) mg/dL Calcium 8.7 (8.5-10.1) mg/dL Total Bilirubin 0.3 (0.2-1.0) mg/dL AST 60 H D (15-37) U/L ALT 49 D (12-78) U/L Alkaline Phosphatase 54 (46-116) U/L C-Reactive Protein (0.0-0.3) mg/dL Total Protein 7.4 (6.4-8.2) g/dL Albumin 3.1 L (3.4-5.0) g/dL Globulin 4.3 H (2.3-3.5) g/dL Albumin/Globulin Ratio 0.7 L (1.2-2.2) Procalcitonin ng/mL Influenza Type A RNA Negative (NEGATIVE) RSV RNA (INAAT) Negative (NEGATIVE) Influenza Type B RNA Negative (NEGATIVE) SARS-CoV-2 RNA (ROSANA) Positive H (NEGATIVE) 03/19/21 03/19/21 03/19/21 Range/Units 12:35 12:35 12:35 WBC (4.5-11.0) K/uL RBC (3.30-5.50) M/uL Hgb (12.0-15.0) g/dL Hct (36.0-48.0) % MCV (80-98) fL MCH (27-31) pg MCHC (32-36) % Plt Count (150-400) K/uL Neut % (Auto) (36-66) % Lymph % (Auto) (24-44) % [place] % (Auto) (2-6) % Eos % (Auto) (2-4) % Baso % (Auto) (0-1) % D-Dimer, Quantitative 2195.09 H (0.0-500.0) ng/mL Sodium (140-148) mmol/L Potassium (3.6-5.2) mmol/L Chloride (100-108) mmol/L Carbon Dioxide (21-32) mmol/L Anion Gap (5.0-14.0) mmol/L BUN (7-18) mg/dL Creatinine (0.6-1.0) mg/dL Est Cr Clr Drug Dosing mL/min Estimated GFR (MDRD) (>60) Glucose (74-106) mg/dL Calcium (8.5-10.1) mg/dL Total Bilirubin (0.2-1.0) mg/dL AST (15-37) U/L ALT (12-78) U/L Alkaline Phosphatase (46-116) U/L C-Reactive Protein 5.18 H (0.0-0.3) mg/dL Total Protein (6.4-8.2) g/dL Albumin (3.4-5.0) g/dL Globulin (2.3-3.5) g/dL Albumin/Globulin Ratio (1.2-2.2) Procalcitonin 0.12 ng/mL Influenza Type A RNA (NEGATIVE) RSV RNA (INAAT) (NEGATIVE) Influenza Type B RNA (NEGATIVE) SARS-CoV-2 RNA (ROSANA) (NEGATIVE) Meds: Medications Generic Name Dose Route Start Last Admin Trade Name Freq PRN Reason Stop Dose Admin Acetaminophen 650 mg 03/19/21 17:28 03/20/21 09:59 Acetaminophen 325 Mg Tab PO 650 mg Q4H PRN Administration Pain (Mild 1-3)/fever Aspirin 81 mg 03/20/21 09:00 03/20/21 08:02 Aspirin 81 Mg Tab.Chew PO 81 mg DAILY RANDY Administration Benzonatate 100 mg 03/19/21 17:28 Benzonatate 100 Mg Cap PO TID PRN Cough Calcium Carbonate/Glycine 1,000 mg 03/19/21 20:20 03/19/21 20:32 Calcium Carbonate 500 Mg Tab.Chew PO 1,000 mg Q2H PRN Administration Indigestion Dexamethasone 6 mg 03/20/21 17:00 Dexamethasone 4 Mg/Ml Sdv IVPUSH Q24H RANDY Enoxaparin Sodium 30 mg 03/19/21 18:00 03/19/21 18:15 Enoxaparin 30 Mg/0.3 Ml Syringe SUBCUT 30 mg Q24H RANDY Administration Guaifenesin/Dextromethorphan 10 ml 03/19/21 17:28 Guaifenesin/Dextromethorphan 100-10 Mg/5 Ml Soln 10 Ml Cup PO Q4H PRN Cough Remdesivir 100 mg/ Sodium 100 mls @ 100 mls/hr 03/20/21 14:00 Chloride IV 03/23/21 14:59 Q24H RANDY Levothyroxine Sodium 100 mcg 03/20/21 07:30 03/20/21 07:52 Levothyroxine 100 Mcg Tab PO 100 mcg ACBREAKFAST RANDY Administration Lorazepam 0.5 mg 03/19/21 17:28 Lorazepam 2 Mg/Ml Sdv IVPUSH Q4H PRN Nausea/Vomiting Magnesium Hydroxide 30 ml 03/19/21 17:28 Magnesium Hydroxide 400 Mg/5 Ml Susp 30 Ml Cup PO Q12H PRN Constipation Melatonin 9 mg 03/19/21 17:28 Melatonin 3 Mg Tab PO BEDTIME PRN sleep Ondansetron HCl 4 mg 03/19/21 17:28 Ondansetron 4 Mg/2 Ml Sdv IV Q6H PRN Nausea/Vomiting Ondansetron HCl 4 mg 03/19/21 17:28 03/20/21 10:00 Ondansetron 4 Mg Tab.Dis PO 4 mg Q6H PRN Administration Nausea able to take PO Pantoprazole Sodium 40 mg 03/20/21 07:30 03/20/21 07:53 Pantoprazole 40 Mg Tab.Cr PO 40 mg ACBREAKFAST RANDY Administration Senna/Docusate Sodium 1 tab 03/19/21 17:28 Docusate Sodium/Sennosides 50-8.6 Mg Tab PO BID PRN Constipation Discontinued Medications Generic Name Dose Route Start Last Admin Trade Name Freq PRN Reason Stop Dose Admin Dexamethasone 6 mg 03/19/21 16:35 03/19/21 18:15 Dexamethasone 4 Mg/Ml Sdv IVPUSH 03/19/21 16:36 6 mg ONETIME ONE Administration Remdesivir 200 mg/ Sodium 250 mls @ 250 mls/hr 03/19/21 14:00 03/19/21 14:06 Chloride IV 03/19/21 14:59 250 mls/hr ONETIME ONE Administration - Re-Assessments/Exams Free Text/Narrative Re-Assessment/Exam: 03/19/21 12:35 A 4 Plex viral study was obtained, this patient is not vaccinated for Covid and is at very high risk. 1 view chest x-ray was obtained, blood cultures, CRP, procalcitonin, CBC and CMP. As soon her blood cultures are drawn, IV antibiotics will be started in the hope that there is a bacterial component to this. 11/30/21 13:29 Chest x-ray looks typical for Covid pneumonia, Covid is positive. GFR is 33 so the patient was given 200 mg of IV remdesivir. She needed at least 6 L of nasal cannula oxygen to stay saturated in the low 90s so needs admission. Procalcitonin is normal, white count is 5100 so there is unlikely a bacterial component. She is afebrile. This is a pretty typical presentation of an elderly female unvaccinated who has Covid pneumonia. Hopefully we can find a bed to put her in as an inpatient. Departure - Departure Time of Disposition: 17:34 Disposition: Admitted As Inpatient 66 Clinical Impression: Pneumonia due to COVID-19 virus - Discharge Information Sepsis Event Note (ED) - Evaluation Sepsis Screening Result: No Definite Risk - My Orders Last 24 Hours: My Active Orders 03/19/21 12:31 Blood Culture x2 Reflex Set [OM.PC] Urgent 03/19/21 12:35 CULTURE BLOOD [BC] Urgent 03/19/21 12:45 CULTURE BLOOD [BC] Urgent - Assessment/Plan Last 24 Hours: My Active Orders 03/19/21 12:31 Blood Culture x2 Reflex Set [OM.PC] Urgent 03/19/21 12:35 CULTURE BLOOD [BC] Urgent 03/19/21 12:45 CULTURE BLOOD [BC] Urgent
[2021-03-19 12:54] LABS: CORONAVIRUS COVID-19 NAA POSITIVE (NEGATIVE)
[2021-03-19] MEDS ORDERED: REMDESIVIR 200 MG in Sodium Chloride 0.9% 250 ML IV ONE ×2 (13:18→14:00)
--- NOTE | 2021-03-19 14:10 | CR ---
CHEST: Portable 03/19/2021 at 1:03 PM CLINICAL HISTORY:Cough and fever COMPARISON:2019 FINDINGS: Patient has patchy bilateral lower lobe infiltrates right greater than left. Heart and pulmonary vascularity are normal. There are atherosclerotic changes in the aorta. Impression: Bilateral lower lobe pneumonic infiltrates.
[2021-03-19] MEDS ORDERED: Dexamethasone 4 MG/ML SDV IVPUSH ONE (16:35)
--- NOTE | 2021-03-19 17:08 | PCM.HP.2 ---
H&P History of Present Illness - General Date of Service: 03/19/21 Admit Problem/Dx: Admission Diagnosis/Problem Admission Diagnosis/Problem Pneumonia Source of Information: Patient, Provider History Limitations: Reports: No Limitations - History of Present Illness Initial Comments - Free Text/Narative: CC: I just got so weak HPI: Emily presents to the emergency room today with about 1 week of progressive weakness, fatigue, myalgias, anorexia and subjective fevers and c hills. She got sick a couple of days before and has had progression of her symptoms since that time. She does not feel particularly short of breath but does admit that she is winded after walking across to her apartment. She has a mild intermittent cough which does not produce sputum. She thinks she has been having fevers but has not measured any temperatures at home. No complaint of sinus congestion or sore throat. Fluid intake has been suboptimal but she has been trying to make herself drink. She has had very little food to eat in the last couple of days. She has a mild generalized headache. She has not taken anything to help with the headache. No obvious triggers to make it worse but does seem to wax and wane. No nausea, abdominal pain or diarrhea. No obvious sick contacts. She has not previously been vaccinated. She came in today because she was so weak and appeared short of breath to her son. Work-up in the emergency room revealed evidence for COVID-19 infection with hypoxia. Initially she was on 10 L but is now down to 6 L. CRP moderately elevated. Chest x-ray showed patchy lower lung infiltrates. She did receive remdesivir and will be receiving dexamethasone. She will be admitted for further management. Middle Back Pain Score (Numeric/FACES): 7 - Related Data Allergies/Adverse Reactions: Allergies Allergy/AdvReac Type Severity Reaction Status Date / Time metronidazole AdvReac Nausea and Verified 03/19/21 12:12 Vomiting Home Medications: Home Meds Levothyroxine [Sythroid] 100 mcg PO DAILY 01/14/18 [History] Multivit-Min/Iron Fum/Folic AC [Akzfm-Gxlixus-Uqipfavl Tablet] 1 tab PO DAILY 01/14/18 [History] Omeprazole 40 mg PO DAILY 01/14/18 [History] Aspirin 81 mg PO DAILY 07/25/19 [History] Calcium Carb/Vitamin D3/Vit K1 [Calcium + D Soft Chewable Tab] 1 tab PO DAILY 01/20/20 [History] Past Medical History HEENT History: Reports: Cataract, Impaired Vision Other HEENT History: wears glasses Respiratory History: Reports: Bronchitis, Recurrent Gastrointestinal History: Reports: Cholelithiasis, Diverticulosis, GERD, Hiatal Hernia, Other (See Below) Other Gastrointestinal History: Barretts Esophagus Genitourinary History: Reports: None 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: Musculoskeletal History: Reports: Arthritis, Back Pain, Chronic Neurological History: Reports: Vertigo Endocrine/Metabolic History: Reports: Hypothyroidism Oncologic (Cancer) History: Reports: Squamous Cell Carcinoma Dermatologic History: Reports: None - Infectious Disease History Infectious Disease History: Reports: Measles - Past Surgical History Head Surgeries/Procedures: Reports: None HEENT Surgical History: Reports: Adenoidectomy, Cataract Surgery, Tonsillectomy GI Surgical History: Reports: Cholecystectomy, Colonoscopy, EGD Female Surgical History: Reports: None Endocrine Surgical History: Reports: None Neurological Surgical History: Reports: None Musculoskeletal Surgical History: Reports: None Oncologic Surgical History: Reports: Other (See Below) Other Oncologic Surgeries/Procedures: removed Dermatological Surgical History: Reports: Skin Biopsy Social & Family History - Family History Family Medical History: No Pertinent Family History - Tobacco Use Tobacco Use Status *Q: Never Tobacco User - Caffeine Use Caffeine Use: Reports: Coffee - Alcohol Use Alcohol Use History: No Alcohol Use in Last Twelve Months: No - Recreational Drug Use Recreational Drug Use: No H&P Review of Systems - Review of Systems: Review Of Systems: See Below Free Text/Narrative: A complete 12 point review of systems was obtained. Pertinent positives and negatives are noted in the history of present illness. All other systems were reviewed and were negative except as noted. Exam - Exam Exam: See Below - Vital Signs Vital Signs: Last Vital Signs Temp 37.9 C 03/19/21 14:09 Pulse 84 03/19/21 16:52 Resp 18 03/19/21 16:52 BP 89/53 L 03/19/21 16:52 Pulse Ox 92 L 03/19/21 16:52 Weight: 70.307 kg - Exam Quality Assessment: Supplemental Oxygen General: Alert, Oriented, Cooperative, Mild Distress HEENT: Conjunctiva Clear. No: Mucosa Moist & Kaplan (Dry), Scleral Icterus Neck: Supple, Trachea Midline. No: JVD Lungs: Normal Respiratory Effort, Crackles (Few both bases left greater than right) Cardiovascular: Regular Rate, Regular Rhythm. No: Systolic Murmur GI/Abdominal Exam: Normal Bowel Sounds, Soft, Non-Tender, No Distention Back Exam: Normal Inspection Extremities: No Pedal Edema. No: Joint Swelling, Increased Warmth Peripheral Pulses: 2+: Dorsalis Pedis (L), Dorsalis Pedis (R) Skin: Warm, Dry Neuro Extensive - Mental Status: Alert, Oriented x3, Nl Response to Commands Neuro Extensive - Motor, Sensory, Reflexes: No: Dysarthria, Abnormal Motor, Tremor Psychiatric: Alert, Normal Affect - Patient Data Lab Results Last 24 hrs: Laboratory Results - last 24 hr 03/19/21 03/19/21 03/19/21 Range/Units 12:13 12:35 12:35 WBC 5.1 (4.5-11.0) K/uL RBC 4.84 (3.30-5.50) M/uL Hgb 14.9 (12.0-15.0) g/dL Hct 43.6 (36.0-48.0) % MCV 90 (80-98) fL MCH 31 (27-31) pg MCHC 34 (32-36) % Plt Count 159 (150-400) K/uL Neut % (Auto) 72.1 H (36-66) % Lymph % (Auto) 17.6 L (24-44) % [place] % (Auto) 9.5 H (2-6) % Eos % (Auto) 0.4 L (2-4) % Baso % (Auto) 0.4 (0-1) % Sodium 132 L (140-148) mmol/L Potassium 3.7 (3.6-5.2) mmol/L Chloride 96 L (100-108) mmol/L Carbon Dioxide 26 (21-32) mmol/L Anion Gap 13.7 (5.0-14.0) mmol/L BUN 28 H D (7-18) mg/dL Creatinine 1.5 H (0.6-1.0) mg/dL Est Cr Clr Drug Dosing 23.68 mL/min Estimated GFR (MDRD) 33 L (>60) Glucose 97 (74-106) mg/dL Calcium 8.7 (8.5-10.1) mg/dL Total Bilirubin 0.3 (0.2-1.0) mg/dL AST 60 H D (15-37) U/L ALT 49 D (12-78) U/L Alkaline Phosphatase 54 (46-116) U/L C-Reactive Protein (0.0-0.3) mg/dL Total Protein 7.4 (6.4-8.2) g/dL Albumin 3.1 L (3.4-5.0) g/dL Globulin 4.3 H (2.3-3.5) g/dL Albumin/Globulin Ratio 0.7 L (1.2-2.2) Procalcitonin ng/mL Influenza Type A RNA Negative (NEGATIVE) RSV RNA (INAAT) Negative (NEGATIVE) Influenza Type B RNA Negative (NEGATIVE) SARS-CoV-2 RNA (ROSANA) Positive H (NEGATIVE) 03/19/21 03/19/21 Range/Units 12:35 12:35 WBC (4.5-11.0) K/uL RBC (3.30-5.50) M/uL Hgb (12.0-15.0) g/dL Hct (36.0-48.0) % MCV (80-98) fL MCH (27-31) pg MCHC (32-36) % Plt Count (150-400) K/uL Neut % (Auto) (36-66) % Lymph % (Auto) (24-44) % [place] % (Auto) (2-6) % Eos % (Auto) (2-4) % Baso % (Auto) (0-1) % Sodium (140-148) mmol/L Potassium (3.6-5.2) mmol/L Chloride (100-108) mmol/L Carbon Dioxide (21-32) mmol/L Anion Gap (5.0-14.0) mmol/L BUN (7-18) mg/dL Creatinine (0.6-1.0) mg/dL Est Cr Clr Drug Dosing mL/min Estimated GFR (MDRD) (>60) Glucose (74-106) mg/dL Calcium (8.5-10.1) mg/dL Total Bilirubin (0.2-1.0) mg/dL AST (15-37) U/L ALT (12-78) U/L Alkaline Phosphatase (46-116) U/L C-Reactive Protein 5.18 H (0.0-0.3) mg/dL Total Protein (6.4-8.2) g/dL Albumin (3.4-5.0) g/dL Globulin (2.3-3.5) g/dL Albumin/Globulin Ratio (1.2-2.2) Procalcitonin 0.12 ng/mL Influenza Type A RNA (NEGATIVE) RSV RNA (INAAT) (NEGATIVE) Influenza Type B RNA (NEGATIVE) SARS-CoV-2 RNA (ROSANA) (NEGATIVE) Result Diagrams: 03/19/21 12:35 03/19/21 12:35 Imaging Impressions Last 24 hrs: Chest x-ray-image personally reviewed-there are patchy bilateral lower lung infiltrates. No obvious mass or effusion. Heart size is normal. Sepsis Event Note - Evaluation Sepsis Screening Result: No Definite Risk - Focused Exam Vital Signs: Vital Signs Temp Pulse Resp BP Pulse Ox 03/19/21 16:52 84 18 89/53 L 92 L 03/19/21 16:04 82 24 H 88/47 L 92 L 03/19/21 15:30 67 21 H 85/57 L 98 03/19/21 15:11 85 22 H 105/54 L 03/19/21 14:09 37.9 C 81 15 125/57 L 98 03/19/21 12:24 76 22 H 101/37 L 97 03/19/21 12:04 36.7 C 82 36 H 117/43 L 75 L *Q Meaningful Use (ADM) - VTE Risk Assess *Q Each Risk Factor Represents 1 Point: Obesity ( BMI > 25 kg/m2), Serious lung dis ease including pneumonia Total Score 1 Point Risk Factors: 2 Each Risk Factor Represents 2 Points: Malignancy (present or previous) Total Score 2 Point Risk Factors: 2 Each Risk Factor Represents 3 Points: Age 75 Years or Greater Total Score 3 Point Risk Factors: 3 Each Risk Factor Represents 5 Points: None Total Score 5 Point Risk Factors: 0 Venous Thromboembolism Risk Factor Score *Q: 7 - Problem List (1) Pneumonia due to COVID-19 virus SNOMED Code(s): 075635921070467125 ICD Code: U07.1 - COVID-19; J12.82 - PNEUMONIA DUE TO CORONAVIRUS DISEASE 2019 Status: Acute Current Visit: Yes (2) Acute respiratory failure due to COVID-19 SNOMED Code(s): 336490837 ICD Code: U07.1 - COVID-19; J96.00 - ACUTE RESPIRATORY FAILURE, UNSP W HYPOXIA OR HYPERCAPNIA Status: Acute Current Visit: Yes (3) Acute kidney injury SNOMED Code(s): 01002847, 05569156 ICD Code: N17.9 - ACUTE KIDNEY FAILURE, UNSPECIFIED Status: Acute Current Visit: Yes (4) Hypothyroidism SNOMED Code(s): 45415939 ICD Code: E03.9 - HYPOTHYROIDISM, UNSPECIFIED Status: Chronic Current Visit: Yes Qualifiers: Hypothyroidism type: acquired Qualified Code(s): E03.9 - Hypothyroidism, unspecified Problem List Initiated/Reviewed/Updated: Yes Orders Last 24hrs: Active Orders 24 hr Category Date Time Status Patient Status Manage Transfer [TRANSFER] Routine ADT 03/19/21 16:58 Ordered CULTURE BLOOD [BC] Urgent Lab 03/19/21 12:35 Received CULTURE BLOOD [BC] Urgent Lab 03/19/21 12:45 Received DD [D-DIMER QUANTITATIVE] [COAG] Stat Lab 03/19/21 12:35 Received Blood Culture x2 Reflex Set [OM.PC] Urgent Oth 03/19/21 12:31 Ordered Isolation [COMM] Stat Oth 03/19/21 12:13 Ordered Resuscitation Status Routine Resus Stat 03/19/21 16:59 Ordered Assessment/Plan Comment:: ASSESSMENT AND PLAN - COVID-19 pneumonia-complicated by acute respiratory failure with hypoxia. Symptom onset about 03/12. Moderate elevation of CRP. Currently requiring 6 L of oxygen. Chest x-ray showed bilateral lower lung infiltrates. Not vaccinated. -Remdesivir x5 days -Dexamethasone 6 mg daily (day 1) -Enoxaparin every 24 hours -Symptomatic management of cough and fever -Isolation precautions -D-dimer and CRP every 2 days Acute kidney injury-secondary to dehydration and poor intake. I would anticipate improvement over the next couple of days. -Encourage oral intake Hypothyroidism- -Continue home supplement Maintenance issues - -DVT prophylaxis-enoxaparin -GI prophylaxis-PPI -Nutrition-regular -Ramsey catheter-not indicated CODE STATUS -DO NOT RESUSCITATE but intubation is okay Admission justification -this patient will be admitted for inpatient services and is medically appropriate meeting medical necessity for inpatient admission as outlined in my documentation. I reasonably expect the patient will require inpatient services that span a period time over 2 midnights. I reasonably expect this patient to be discharged or transferred within 96 hours after admission to the [facility]. Disposition -I anticipate discharge home after the hospital stay Primary care physician -Dr Khanh Castillo M.D. - Mortality Measure Prognosis:: Good
[2021-03-19] MEDS ORDERED: Ondansetron 4 MG/2 ML SDV IV PRN (17:28)
[2021-03-19] MEDS ORDERED: guaiFENesin/Dextromethorphan 100-10 MG/5 ML Soln 10 ML Cup PO PRN (17:28)
[2021-03-19] MEDS ORDERED: Benzonatate 100 MG Cap PO PRN (17:28)
[2021-03-19] MEDS: Acetaminophen 325 MG Tab PO PRN (18:14)
[2021-03-19] MEDS: Enoxaparin 30 MG/0.3 ML Syringe SUBCUT SCH (18:15)
[2021-03-19] MEDS: Calcium Carbonate 500 MG Tab.Chew PO PRN (20:32)
[2021-03-20] MEDS: Acetaminophen 325 MG Tab PO PRN ×3 (02:47→14:18)
[2021-03-20] MEDS: Levothyroxine 100 MCG Tab PO SCH (07:52)
[2021-03-20] MEDS: Pantoprazole 40 MG Tab.CR PO SCH (07:53)
[2021-03-20] MEDS: Aspirin 81 MG Tab.Chew PO SCH (08:02)
[2021-03-20] MEDS: Ondansetron 4 MG Tab.DIS PO PRN (10:00)
--- NOTE | 2021-03-20 10:11 | PCM.PN ---
- General Info Date of Service: 03/20/21 Subjective Update: No acute events overnight. Respiratory status on 6 L of high flow oxygen though saturations are borderline. She reports she does not feel much different than l ast night though she does appear a little bit more comfortable. Still having myalgias. She has a headache this morning. Mild shortness of breath. Intermittent cough but no sputum. No fevers. Still feeling hot and cold. No abdominal pain or nausea. - Review of Systems General: Reports: Weakness Musculoskeletal: Reports: Other (myalgias) - Patient Data Vitals - Most Recent: Last Vital Signs Temp 36.0 C L 03/20/21 08:00 Pulse 63 03/20/21 08:00 Resp 26 H 03/20/21 08:00 BP 104/61 03/20/21 08:00 Pulse Ox 90 L 03/20/21 08:00 Weight - Most Recent: 69.853 kg I&O - Last 24 Hours: Intake & Output 03/19/21 03/20/21 03/20/21 22:59 06:59 14:59 Intake Total 240 Output Total 200 Balance 40 Lab Results Last 24 Hours: Laboratory Results - last 24 hr 03/19/21 03/19/21 03/19/21 Range/Units 12:13 12:35 12:35 WBC 5.1 (4.5-11.0) K/uL RBC 4.84 (3.30-5.50) M/uL Hgb 14.9 (12.0-15.0) g/dL Hct 43.6 (36.0-48.0) % MCV 90 (80-98) fL MCH 31 (27-31) pg MCHC 34 (32-36) % Plt Count 159 (150-400) K/uL Neut % (Auto) 72.1 H (36-66) % Lymph % (Auto) 17.6 L (24-44) % [place] % (Auto) 9.5 H (2-6) % Eos % (Auto) 0.4 L (2-4) % Baso % (Auto) 0.4 (0-1) % D-Dimer, Quantitative (0.0-500.0) ng/mL Sodium 132 L (140-148) mmol/L Potassium 3.7 (3.6-5.2) mmol/L Chloride 96 L (100-108) mmol/L Carbon Dioxide 26 (21-32) mmol/L Anion Gap 13.7 (5.0-14.0) mmol/L BUN 28 H D (7-18) mg/dL Creatinine 1.5 H (0.6-1.0) mg/dL Est Cr Clr Drug Dosing 23.68 mL/min Estimated GFR (MDRD) 33 L (>60) Glucose 97 (74-106) mg/dL Calcium 8.7 (8.5-10.1) mg/dL Total Bilirubin 0.3 (0.2-1.0) mg/dL AST 60 H D (15-37) U/L ALT 49 D (12-78) U/L Alkaline Phosphatase 54 (46-116) U/L C-Reactive Protein (0.0-0.3) mg/dL Total Protein 7.4 (6.4-8.2) g/dL Albumin 3.1 L (3.4-5.0) g/dL Globulin 4.3 H (2.3-3.5) g/dL Albumin/Globulin Ratio 0.7 L (1.2-2.2) Procalcitonin ng/mL Influenza Type A RNA Negative (NEGATIVE) RSV RNA (INAAT) Negative (NEGATIVE) Influenza Type B RNA Negative (NEGATIVE) SARS-CoV-2 RNA (ROSANA) Positive H (NEGATIVE) 03/19/21 03/19/21 03/19/21 Range/Units 12:35 12:35 12:35 WBC (4.5-11.0) K/uL RBC (3.30-5.50) M/uL Hgb (12.0-15.0) g/dL Hct (36.0-48.0) % MCV (80-98) fL MCH (27-31) pg MCHC (32-36) % Plt Count (150-400) K/uL Neut % (Auto) (36-66) % Lymph % (Auto) (24-44) % [place] % (Auto) (2-6) % Eos % (Auto) (2-4) % Baso % (Auto) (0-1) % D-Dimer, Quantitative 2195.09 H (0.0-500.0) ng/mL Sodium (140-148) mmol/L Potassium (3.6-5.2) mmol/L Chloride (100-108) mmol/L Carbon Dioxide (21-32) mmol/L Anion Gap (5.0-14.0) mmol/L BUN (7-18) mg/dL Creatinine (0.6-1.0) mg/dL Est Cr Clr Drug Dosing mL/min Estimated GFR (MDRD) (>60) Glucose (74-106) mg/dL Calcium (8.5-10.1) mg/dL Total Bilirubin (0.2-1.0) mg/dL AST (15-37) U/L ALT (12-78) U/L Alkaline Phosphatase (46-116) U/L C-Reactive Protein 5.18 H (0.0-0.3) mg/dL Total Protein (6.4-8.2) g/dL Albumin (3.4-5.0) g/dL Globulin (2.3-3.5) g/dL Albumin/Globulin Ratio (1.2-2.2) Procalcitonin 0.12 ng/mL Influenza Type A RNA (NEGATIVE) RSV RNA (INAAT) (NEGATIVE) Influenza Type B RNA (NEGATIVE) SARS-CoV-2 RNA (ROSANA) (NEGATIVE) 03/20/21 03/20/21 Range/Units 06:00 06:00 WBC 4.2 L (4.5-11.0) K/uL RBC 4.77 (3.30-5.50) M/uL Hgb 14.8 (12.0-15.0) g/dL Hct 42.9 (36.0-48.0) % MCV 90 (80-98) fL MCH 31 (27-31) pg MCHC 35 (32-36) % Plt Count 162 (150-400) K/uL Neut % (Auto) (36-66) % Lymph % (Auto) (24-44) % [place] % (Auto) (2-6) % Eos % (Auto) (2-4) % Baso % (Auto) (0-1) % D-Dimer, Quantitative (0.0-500.0) ng/mL Sodium 133 L (140-148) mmol/L Potassium 4.4 (3.6-5.2) mmol/L Chloride 98 L (100-108) mmol/L Carbon Dioxide 25 (21-32) mmol/L Anion Gap 14.4 H (5.0-14.0) mmol/L BUN 38 H (7-18) mg/dL Creatinine 1.7 H (0.6-1.0) mg/dL Est Cr Clr Drug Dosing 21.04 mL/min Estimated GFR (MDRD) 29 L (>60) Glucose 151 H (74-106) mg/dL Calcium 8.5 (8.5-10.1) mg/dL Total Bilirubin 0.2 (0.2-1.0) mg/dL AST 62 H (15-37) U/L ALT 47 (12-78) U/L Alkaline Phosphatase 47 (46-116) U/L C-Reactive Protein (0.0-0.3) mg/dL Total Protein 6.3 L (6.4-8.2) g/dL Albumin 2.7 L (3.4-5.0) g/dL Globulin 3.6 H (2.3-3.5) g/dL Albumin/Globulin Ratio 0.8 L (1.2-2.2) Procalcitonin ng/mL Influenza Type A RNA (NEGATIVE) RSV RNA (INAAT) (NEGATIVE) Influenza Type B RNA (NEGATIVE) SARS-CoV-2 RNA (ROSANA) (NEGATIVE) Med Orders - Current: Current Medications Acetaminophen (Acetaminophen 325 Mg Tab) 650 mg PO Q4H PRN PRN Reason: Pain (Mild 1-3)/fever Last Admin: 03/20/21 09:59 Dose: 650 mg Documented by: Aspirin (Aspirin 81 Mg Tab.Chew) 81 mg PO DAILY [facility] Last Admin: 03/20/21 08:02 Dose: 81 mg Documented by: Benzonatate (Benzonatate 100 Mg Cap) 100 mg PO TID PRN PRN Reason: Cough Calcium Carbonate/Glycine (Calcium Carbonate 500 Mg Tab.Chew) 1,000 mg PO Q2H PRN PRN Reason: Indigestion Last Admin: 03/19/21 20:32 Dose: 1,000 mg Documented by: Dexamethasone (Dexamethasone 4 Mg/Ml Sdv) 6 mg IVPUSH Q24H RANDY Enoxaparin Sodium (Enoxaparin 30 Mg/0.3 Ml Syringe) 30 mg SUBCUT Q24H [facility] Last Admin: 03/19/21 18:15 Dose: 30 mg Documented by: Guaifenesin/Dextromethorphan (Guaifenesin/Dextromethorphan 100-10 Mg/5 Ml Soln 10 Ml Cup) 10 ml PO Q4H PRN PRN Reason: Cough Remdesivir 100 mg/ Sodium (Chloride) 100 mls @ 100 mls/hr IV Q24H [facility] Stop: 03/23/21 14:59 Levothyroxine Sodium (Levothyroxine 100 Mcg Tab) [facility] Last Admin: 03/20/21 07:52 Dose: 100 mcg Documented by: Lorazepam (Lorazepam 2 Mg/Ml Sdv) 0.5 mg IVPUSH Q4H PRN PRN Reason: Nausea/Vomiting Magnesium Hydroxide (Magnesium Hydroxide 400 Mg/5 Ml Susp 30 Ml Cup) 30 ml PO Q12H PRN PRN Reason: Constipation Melatonin (Melatonin 3 Mg Tab) 9 mg PO BEDTIME PRN PRN Reason: sleep Ondansetron HCl (Ondansetron 4 Mg/2 Ml Sdv) 4 mg IV Q6H PRN PRN Reason: Nausea/Vomiting Ondansetron HCl (Ondansetron 4 Mg Tab.Dis) 4 mg PO Q6H PRN PRN Reason: Nausea able to take PO Last Admin: 03/20/21 10:00 Dose: 4 mg Documented by: Pantoprazole Sodium (Pantoprazole 40 Mg Tab.Cr) 40 mg PO ACBREAKFAST [facility] Last Admin: 03/20/21 07:53 Dose: 40 mg Documented by: Senna/Docusate Sodium (Docusate Sodium/Sennosides 50-8.6 Mg Tab) 1 tab PO BID PRN PRN Reason: Constipation Discontinued Medications Dexamethasone (Dexamethasone 4 Mg/Ml Sdv) 6 mg IVPUSH ONETIME ONE Stop: 03/19/21 16:36 Last Admin: 03/19/21 18:15 Dose: 6 mg Documented by: Remdesivir 200 mg/ Sodium (Chloride) 250 mls @ 250 mls/hr IV ONETIME ONE Stop: 03/19/21 14:59 Last Admin: 03/19/21 14:06 Dose: 250 mls/hr Documented by: - Exam Quality Assessment: Supplemental Oxygen General: Alert, Oriented, Cooperative, Mild Distress Lungs: Normal Respiratory Effort, Crackles (mild diffuse dry crackles) Cardiovascular: Regular Rate, Regular Rhythm GI/Abdominal Exam: Soft, No Distention Extremities: No Pedal Edema. No: Increased Warmth Skin: Warm, Dry Psy/Mental Status: Alert, Normal Affect - Patient Data Lab Results Last 24 hrs: Laboratory Results - last 24 hr 03/19/21 03/19/21 03/19/21 Range/Units 12:13 12:35 12:35 WBC 5.1 (4.5-11.0) K/uL RBC 4.84 (3.30-5.50) M/uL Hgb 14.9 (12.0-15.0) g/dL Hct 43.6 (36.0-48.0) % MCV 90 (80-98) fL MCH 31 (27-31) pg MCHC 34 (32-36) % Plt Count 159 (150-400) K/uL Neut % (Auto) 72.1 H (36-66) % Lymph % (Auto) 17.6 L (24-44) % [place] % (Auto) 9.5 H (2-6) % Eos % (Auto) 0.4 L (2-4) % Baso % (Auto) 0.4 (0-1) % D-Dimer, Quantitative (0.0-500.0) ng/mL Sodium 132 L (140-148) mmol/L Potassium 3.7 (3.6-5.2) mmol/L Chloride 96 L (100-108) mmol/L Carbon Dioxide 26 (21-32) mmol/L Anion Gap 13.7 (5.0-14.0) mmol/L BUN 28 H D (7-18) mg/dL Creatinine 1.5 H (0.6-1.0) mg/dL Est Cr Clr Drug Dosing 23.68 mL/min Estimated GFR (MDRD) 33 L (>60) Glucose 97 (74-106) mg/dL Calcium 8.7 (8.5-10.1) mg/dL Total Bilirubin 0.3 (0.2-1.0) mg/dL AST 60 H D (15-37) U/L ALT 49 D (12-78) U/L Alkaline Phosphatase 54 (46-116) U/L C-Reactive Protein (0.0-0.3) mg/dL Total Protein 7.4 (6.4-8.2) g/dL Albumin 3.1 L (3.4-5.0) g/dL Globulin 4.3 H (2.3-3.5) g/dL Albumin/Globulin Ratio 0.7 L (1.2-2.2) Procalcitonin ng/mL Influenza Type A RNA Negative (NEGATIVE) RSV RNA (INAAT) Negative (NEGATIVE) Influenza Type B RNA Negative (NEGATIVE) SARS-CoV-2 RNA (ROSANA) Positive H (NEGATIVE) 03/19/21 03/19/21 03/19/21 Range/Units 12:35 12:35 12:35 WBC (4.5-11.0) K/uL RBC (3.30-5.50) M/uL Hgb (12.0-15.0) g/dL Hct (36.0-48.0) % MCV (80-98) fL MCH (27-31) pg MCHC (32-36) % Plt Count (150-400) K/uL Neut % (Auto) (36-66) % Lymph % (Auto) (24-44) % [place] % (Auto) (2-6) % Eos % (Auto) (2-4) % Baso % (Auto) (0-1) % D-Dimer, Quantitative 2195.09 H (0.0-500.0) ng/mL Sodium (140-148) mmol/L Potassium (3.6-5.2) mmol/L Chloride (100-108) mmol/L Carbon Dioxide (21-32) mmol/L Anion Gap (5.0-14.0) mmol/L BUN (7-18) mg/dL Creatinine (0.6-1.0) mg/dL Est Cr Clr Drug Dosing mL/min Estimated GFR (MDRD) (>60) Glucose (74-106) mg/dL Calcium (8.5-10.1) mg/dL Total Bilirubin (0.2-1.0) mg/dL AST (15-37) U/L ALT (12-78) U/L Alkaline Phosphatase (46-116) U/L C-Reactive Protein 5.18 H (0.0-0.3) mg/dL Total Protein (6.4-8.2) g/dL Albumin (3.4-5.0) g/dL Globulin (2.3-3.5) g/dL Albumin/Globulin Ratio (1.2-2.2) Procalcitonin 0.12 ng/mL Influenza Type A RNA (NEGATIVE) RSV RNA (INAAT) (NEGATIVE) Influenza Type B RNA (NEGATIVE) SARS-CoV-2 RNA (ROSANA) (NEGATIVE) 03/20/21 03/20/21 Range/Units 06:00 06:00 WBC 4.2 L (4.5-11.0) K/uL RBC 4.77 (3.30-5.50) M/uL Hgb 14.8 (12.0-15.0) g/dL Hct 42.9 (36.0-48.0) % MCV 90 (80-98) fL MCH 31 (27-31) pg MCHC 35 (32-36) % Plt Count 162 (150-400) K/uL Neut % (Auto) (36-66) % Lymph % (Auto) (24-44) % [place] % (Auto) (2-6) % Eos % (Auto) (2-4) % Baso % (Auto) (0-1) % D-Dimer, Quantitative (0.0-500.0) ng/mL Sodium 133 L (140-148) mmol/L Potassium 4.4 (3.6-5.2) mmol/L Chloride 98 L (100-108) mmol/L Carbon Dioxide 25 (21-32) mmol/L Anion Gap 14.4 H (5.0-14.0) mmol/L BUN 38 H (7-18) mg/dL Creatinine 1.7 H (0.6-1.0) mg/dL Est Cr Clr Drug Dosing 21.04 mL/min Estimated GFR (MDRD) 29 L (>60) Glucose 151 H (74-106) mg/dL Calcium 8.5 (8.5-10.1) mg/dL Total Bilirubin 0.2 (0.2-1.0) mg/dL AST 62 H (15-37) U/L ALT 47 (12-78) U/L Alkaline Phosphatase 47 (46-116) U/L C-Reactive Protein (0.0-0.3) mg/dL Total Protein 6.3 L (6.4-8.2) g/dL Albumin 2.7 L (3.4-5.0) g/dL Globulin 3.6 H (2.3-3.5) g/dL Albumin/Globulin Ratio 0.8 L (1.2-2.2) Procalcitonin ng/mL Influenza Type A RNA (NEGATIVE) RSV RNA (INAAT) (NEGATIVE) Influenza Type B RNA (NEGATIVE) SARS-CoV-2 RNA (ROSANA) (NEGATIVE) Result Diagrams: 03/20/21 06:00 03/20/21 06:00 Sepsis Event Note - Evaluation Sepsis Screening Result: No Definite Risk - Focused Exam Vital Signs: Vital Signs Temp Pulse Resp BP Pulse Ox 03/20/21 08:00 36.0 C L 63 26 H 104/61 90 L 03/20/21 02:54 36.6 C 66 28 H 90/42 L 91 L 03/20/21 01:46 91 L 03/19/21 23:53 36.4 C 66 24 H 102/45 L 90 L - Problem List & Annotations (1) Pneumonia due to COVID-19 virus SNOMED Code(s): 526597501367163745 Code(s): U07.1 - COVID-19; J12.82 - PNEUMONIA DUE TO CORONAVIRUS DISEASE 2019 Status: Acute Current Visit: Yes (2) Acute respiratory failure due to COVID-19 SNOMED Code(s): 498045016 Code(s): U07.1 - COVID-19; J96.00 - ACUTE RESPIRATORY FAILURE, UNSP W HYPOXIA OR HYPERCAPNIA Status: Acute Current Visit: Yes (3) Acute kidney injury SNOMED Code(s): 34047352, 13759275 Code(s): N17.9 - ACUTE KIDNEY FAILURE, UNSPECIFIED Status: Acute Current Visit: Yes (4) Hypothyroidism SNOMED Code(s): 11211957 Code(s): E03.9 - HYPOTHYROIDISM, UNSPECIFIED Status: Chronic Current Visit: Yes Qualifiers: Hypothyroidism type: acquired Qualified Code(s): E03.9 - Hypothyroidism, unspecified - Problem List Review Problem List Initiated/Reviewed/Updated: Yes - My Orders Last 24 Hours: My Active Orders 03/19/21 16:59 Resuscitation Status Routine 03/19/21 Dinner Regular Diet [DIET] 03/19/21 17:28 Acetaminophen [TylenoL] 650 mg PO Q4H PRN Benzonatate [Tessalon Perles] 100 mg PO TID PRN Dextromethorphan/guaiFENesin [Robitussin DM] 10 ml PO Q4H PRN Docusate Sodium/Sennosides [Senna Plus] 1 tab PO BID PRN LORazepam [Ativan] 0.5 mg IVPUSH Q4H PRN Magnesium Hydroxide [Milk of Magnesia] 30 ml PO Q12H PRN Melatonin 9 mg PO BEDTIME PRN Ondansetron [Zofran ODT] 4 mg PO Q6H PRN Ondansetron [Zofran] 4 mg IV Q6H PRN 03/19/21 17:28 Patient Status [ADT] Routine Intake and Output [RC] QSHIFT Notify Provider Vital Signs [RC] ASDIRECTED Oxygen Therapy [RC] PRN Pulse Oximetry [RC] CONTINUOUS Up With Assistance [RC] ASDIRECTED Vital Signs [RC] Q4H Isolation [COMM] Routine 03/19/21 18:00 Enoxaparin [Lovenox] 30 mg SUBCUT Q24H 03/19/21 20:20 Calcium Carbonate [Tums] 1,000 mg PO Q2H PRN 03/20/21 07:30 Levothyroxine [Synthroid] 100 mcg PO ACBREAKFAST Pantoprazole [ProTONIX] 40 mg PO ACBREAKFAST 03/20/21 09:00 Aspirin 81 mg PO DAILY 03/20/21 14:00 Remdesivir 100 mg Sodium Chloride 0.9% [Normal Saline] 100 ml IV Q24H 03/20/21 17:00 dexAMETHasone [Decadron] 6 mg IVPUSH Q24H 03/21/21 05:00 CBC W/O DIFF,HEMOGRAM [HEME] Timed (1) COMPREHENSIVE METABOLIC PN,CMP [CHEM] Timed CRP [C-REACTIVE PROTEIN] [CHEM] Timed D-DIMER QUANTITATIVE [COAG] Timed - Plan Plan:: ASSESSMENT AND PLAN - COVID-19 pneumonia-complicated by acute respiratory failure with hypoxia. Symptom onset about 03/12. Stable on 6 L but saturations are borderline. Tolerating medication so far. Symptomatically may be a little better today. -Remdesivir x5 days -Dexamethasone 6 mg daily (day 2) -Enoxaparin every 24 hours -Symptomatic management of cough and fever -Isolation precautions -D-dimer and CRP every 2 days Acute kidney injury-secondary to dehydration and poor intake. Creatinine slightly higher but intake has not been very good. Volume status is appropriate. -Encourage oral intake Hypothyroidism- -Continue home supplement Maintenance issues - -DVT prophylaxis-enoxaparin -GI prophylaxis-PPI -Nutrition-regular -[place] catheter-not indicated CODE STATUS -DO NOT RESUSCITATE but intubation is okay Disposition -I anticipate discharge home after the hospital stay Primary care physician -Dr Khanh Castillo M.D.
[2021-03-20] MEDS: REMDESIVIR 100 MG in Sodium Chloride 0.9% 100 ML IV SCH (14:47)
[2021-03-20] MEDS: diphenhydrAMINE 25 MG Cap PO PRN (15:14)
[2021-03-20] MEDS: traMADol 50 MG Tab PO PRN (15:17)
[2021-03-20] MEDS: Dexamethasone 4 MG/ML SDV IVPUSH SCH (16:20)
[2021-03-20] MEDS: Enoxaparin 30 MG/0.3 ML Syringe SUBCUT SCH (18:03)
[2021-03-21] MEDS: diphenhydrAMINE 25 MG Cap PO PRN (04:38)
[2021-03-21] MEDS: Pantoprazole 40 MG Tab.CR PO SCH (07:43)
[2021-03-21] MEDS: Levothyroxine 100 MCG Tab PO SCH (07:43)
[2021-03-21] MEDS: Aspirin 81 MG Tab.Chew PO SCH ×2 (07:43→08:54)
[2021-03-21] MEDS: Acetaminophen 325 MG Tab PO PRN (11:05)
--- NOTE | 2021-03-21 14:33 | PCM.PN ---
- General Info Date of Service: 03/21/21 Subjective Update: Overnight the patient had increasing respiratory difficulty and was started on heated/high flow nasal cannula. She is currently requiring high amount of support at 85% FiO2 and 60 L/min. She does not feel much better than yesterday. Maybe a little less short of breath. Still has diffuse myalgias especially in her back and neck. No nausea or abdominal pain but intake has been poor. She has a headache and a mild sore throat. Kidney function is similar to yesterday with a GFR just below 30. D-dimer and CRP are slightly better than admission. - Review of Systems General: Reports: Weakness. Denies: Fever HEENT: Reports: Headaches Musculoskeletal: Reports: Other (myalgias) - Patient Data Vitals - Most Recent: Last Vital Signs Temp 35.2 C L 03/21/21 11:00 Pulse 69 03/21/21 11:00 Resp 18 03/21/21 11:00 BP 117/70 03/21/21 11:00 Pulse Ox 93 L 03/21/21 11:00 Weight - Most Recent: 69.853 kg I&O - Last 24 Hours: Intake & Output 03/20/21 03/21/21 03/21/21 22:59 06:59 14:59 Intake Total 190 450 Output Total 700 Balance 190 -250 Lab Results Last 24 Hours: Laboratory Results - last 24 hr 03/21/21 03/21/21 03/21/21 Range/Units 05:45 05:45 05:45 WBC 6.4 (4.5-11.0) K/uL RBC 4.71 (3.30-5.50) M/uL Hgb 14.4 (12.0-15.0) g/dL Hct 42.4 (36.0-48.0) % MCV 90 (80-98) fL MCH 31 (27-31) pg MCHC 34 (32-36) % Plt Count 208 (150-400) K/uL D-Dimer, Quantitative 1448.52 H (0.0-500.0) ng/mL Sodium 133 L (140-148) mmol/L Potassium 4.4 (3.6-5.2) mmol/L Chloride 99 L (100-108) mmol/L Carbon Dioxide 26 (21-32) mmol/L Anion Gap 12.4 (5.0-14.0) mmol/L BUN 58 H D (7-18) mg/dL Creatinine 1.8 H (0.6-1.0) mg/dL Est Cr Clr Drug Dosing 19.73 mL/min Estimated GFR (MDRD) 27 L (>60) Glucose 148 H (74-106) mg/dL Calcium 8.4 L (8.5-10.1) mg/dL Total Bilirubin 0.3 (0.2-1.0) mg/dL AST 54 H (15-37) U/L ALT 41 (12-78) U/L Alkaline Phosphatase 46 (46-116) U/L C-Reactive Protein 4.49 H (0.0-0.3) mg/dL Total Protein 6.7 (6.4-8.2) g/dL Albumin 2.7 L (3.4-5.0) g/dL Globulin 4.0 H (2.3-3.5) g/dL Albumin/Globulin Ratio 0.7 L (1.2-2.2) Procalcitonin ng/mL 03/21/21 Range/Units 05:45 WBC (4.5-11.0) K/uL RBC (3.30-5.50) M/uL Hgb (12.0-15.0) g/dL Hct (36.0-48.0) % MCV (80-98) fL MCH (27-31) pg MCHC (32-36) % Plt Count (150-400) K/uL D-Dimer, Quantitative (0.0-500.0) ng/mL Sodium (140-148) mmol/L Potassium (3.6-5.2) mmol/L Chloride (100-108) mmol/L Carbon Dioxide (21-32) mmol/L Anion Gap (5.0-14.0) mmol/L BUN (7-18) mg/dL Creatinine (0.6-1.0) mg/dL Est Cr Clr Drug Dosing mL/min Estimated GFR (MDRD) (>60) Glucose (74-106) mg/dL Calcium (8.5-10.1) mg/dL Total Bilirubin (0.2-1.0) mg/dL AST (15-37) U/L ALT (12-78) U/L Alkaline Phosphatase (46-116) U/L C-Reactive Protein (0.0-0.3) mg/dL Total Protein (6.4-8.2) g/dL Albumin (3.4-5.0) g/dL Globulin (2.3-3.5) g/dL Albumin/Globulin Ratio (1.2-2.2) Procalcitonin 0.27 ng/mL [facility] Results Last 24 Hours: Microbiology 03/19/21 12:35 Aerobic Blood Culture - Preliminary Blood - Venous NO GROWTH AFTER 2 DAYS Anaerobic Blood Culture - Preliminary NO GROWTH AFTER 2 DAYS 03/19/21 12:45 Aerobic Blood Culture - Preliminary Blood - Venous - Lab Draw NO GROWTH AFTER 2 DAYS Anaerobic Blood Culture - Preliminary NO GROWTH AFTER 2 DAYS Med Orders - Current: Current Medications Acetaminophen (Acetaminophen 325 Mg Tab) 650 mg PO Q4H PRN PRN Reason: Pain (Mild 1-3)/fever Last Admin: 03/21/21 11:05 Dose: 650 mg Documented by: Aspirin (Aspirin 81 Mg Tab.Chew) 81 mg PO DAILY [facility] Last Admin: 03/21/21 08:54 Dose: Not Given Documented by: Baricitinib (Baricitinib 2 Mg Tab) 2 mg PO Q24H [facility] Stop: 03/30/21 14:31 Benzonatate (Benzonatate 100 Mg Cap) 100 mg PO TID PRN PRN Reason: Cough Calcium Carbonate/Glycine (Calcium Carbonate 500 Mg Tab.Chew) 1,000 mg PO Q2H PRN PRN Reason: Indigestion Last Admin: 03/19/21 20:32 Dose: 1,000 mg Documented by: Dexamethasone (Dexamethasone 4 Mg/Ml Sdv) 6 mg IVPUSH Q24H [facility] Last Admin: 03/20/21 16:20 Dose: 6 mg Documented by: Diphenhydramine HCl (Diphenhydramine 25 Mg Cap) 25 mg PO Q4H PRN PRN Reason: Itching Last Admin: 03/21/21 04:38 Dose: 25 mg Documented by: Enoxaparin Sodium (Enoxaparin 30 Mg/0.3 Ml Syringe) 30 mg SUBCUT Q24H [facility] Last Admin: 03/20/21 18:03 Dose: 30 mg Documented by: Guaifenesin/Dextromethorphan (Guaifenesin/Dextromethorphan 100-10 Mg/5 Ml Soln 10 Ml Cup) 10 ml PO Q4H PRN PRN Reason: Cough Remdesivir 100 mg/ Sodium (Chloride) 100 mls @ 100 mls/hr IV Q24H [facility] Stop: 03/23/21 14:59 Last Admin: 03/20/21 14:47 Dose: 100 mls/hr Documented by: Doxycycline Hyclate 100 mg/ (Sodium Chloride) 100 mls @ 100 mls/hr IV Q12H [facility] Ceftriaxone Sodium 1 gm/ (Sodium Chloride) 50 mls @ 100 mls/hr IV Q24H [facility] Levothyroxine Sodium (Levothyroxine 100 Mcg Tab) 100 mcg PO ACBREAKFAST [facility] Last Admin: 03/21/21 07:43 Dose: 100 mcg Documented by: Lorazepam (Lorazepam 2 Mg/Ml Sdv) 0.5 mg IVPUSH Q4H PRN PRN Reason: Nausea/Vomiting Magnesium Hydroxide (Magnesium Hydroxide 400 Mg/5 Ml Susp 30 Ml Cup) 30 ml PO Q12H PRN PRN Reason: Constipation Melatonin (Melatonin 3 Mg Tab) 9 mg PO BEDTIME PRN PRN Reason: sleep Ondansetron HCl (Ondansetron 4 Mg/2 Ml Sdv) 4 mg IV Q6H PRN PRN Reason: Nausea/Vomiting Ondansetron HCl (Ondansetron 4 Mg Tab.Dis) 4 mg PO Q6H PRN PRN Reason: Nausea able to take PO Last Admin: 03/20/21 10:00 Dose: 4 mg Documented by: Pantoprazole Sodium (Pantoprazole 40 Mg Tab.Cr) 40 mg PO ACBREAKFAST [facility] Last Admin: 03/21/21 07:43 Dose: 40 mg Documented by: Senna/Docusate Sodium (Docusate Sodium/Sennosides 50-8.6 Mg Tab) 1 tab PO BID PRN PRN Reason: Constipation Tramadol HCl (Tramadol 50 Mg Tab) 50 mg PO Q8H PRN PRN Reason: Pain (moderate 4-6) Last Admin: 03/20/21 15:17 Dose: 50 mg Documented by: Discontinued Medications Dexamethasone (Dexamethasone 4 Mg/Ml Sdv) 6 mg IVPUSH ONETIME ONE Stop: 03/19/21 16:36 Last Admin: 03/19/21 18:15 Dose: 6 mg Documented by: Remdesivir 200 mg/ Sodium (Chloride) 250 mls @ 250 mls/hr IV ONETIME ONE Stop: 03/19/21 14:59 Last Admin: 03/19/21 14:06 Dose: 250 mls/hr Documented by: - Exam Quality Assessment: Supplemental Oxygen General: Alert, Oriented, Cooperative, No Acute Distress Lungs: Normal Respiratory Effort, Crackles (both lower and mid lungs) Cardiovascular: Regular Rate, Regular Rhythm GI/Abdominal Exam: Soft, No Distention Extremities: No Pedal Edema. No: Increased Warmth Skin: Warm, Dry Psy/Mental Status: Alert, Normal Affect - Patient Data Lab Results Last 24 hrs: Laboratory Results - last 24 hr 03/21/21 03/21/21 03/21/21 Range/Units 05:45 05:45 05:45 WBC 6.4 (4.5-11.0) K/uL RBC 4.71 (3.30-5.50) M/uL Hgb 14.4 (12.0-15.0) g/dL Hct 42.4 (36.0-48.0) % MCV 90 (80-98) fL MCH 31 (27-31) pg MCHC 34 (32-36) % Plt Count 208 (150-400) K/uL D-Dimer, Quantitative 1448.52 H (0.0-500.0) ng/mL Sodium 133 L (140-148) mmol/L Potassium 4.4 (3.6-5.2) mmol/L Chloride 99 L (100-108) mmol/L Carbon Dioxide 26 (21-32) mmol/L Anion Gap 12.4 (5.0-14.0) mmol/L BUN 58 H D (7-18) mg/dL Creatinine 1.8 H (0.6-1.0) mg/dL Est Cr Clr Drug Dosing 19.73 mL/min Estimated GFR (MDRD) 27 L (>60) Glucose 148 H (74-106) mg/dL Calcium 8.4 L (8.5-10.1) mg/dL Total Bilirubin 0.3 (0.2-1.0) mg/dL AST 54 H (15-37) U/L ALT 41 (12-78) U/L Alkaline Phosphatase 46 (46-116) U/L C-Reactive Protein 4.49 H (0.0-0.3) mg/dL Total Protein 6.7 (6.4-8.2) g/dL Albumin 2.7 L (3.4-5.0) g/dL Globulin 4.0 H (2.3-3.5) g/dL Albumin/Globulin Ratio 0.7 L (1.2-2.2) Procalcitonin ng/mL 03/21/21 Range/Units 05:45 WBC (4.5-11.0) K/uL RBC (3.30-5.50) M/uL Hgb (12.0-15.0) g/dL Hct (36.0-48.0) % MCV (80-98) fL MCH (27-31) pg MCHC (32-36) % Plt Count (150-400) K/uL D-Dimer, Quantitative (0.0-500.0) ng/mL Sodium (140-148) mmol/L Potassium (3.6-5.2) mmol/L Chloride (100-108) mmol/L Carbon Dioxide (21-32) mmol/L Anion Gap (5.0-14.0) mmol/L BUN (7-18) mg/dL Creatinine (0.6-1.0) mg/dL Est Cr Clr Drug Dosing mL/min Estimated GFR (MDRD) (>60) Glucose (74-106) mg/dL Calcium (8.5-10.1) mg/dL Total Bilirubin (0.2-1.0) mg/dL AST (15-37) U/L ALT (12-78) U/L Alkaline Phosphatase (46-116) U/L C-Reactive Protein (0.0-0.3) mg/dL Total Protein (6.4-8.2) g/dL Albumin (3.4-5.0) g/dL Globulin (2.3-3.5) g/dL Albumin/Globulin Ratio (1.2-2.2) Procalcitonin 0.27 ng/mL Result Diagrams: 03/21/21 05:45 03/21/21 05:45 Tate Results Last 24 hrs: Microbiology 03/19/21 12:35 Aerobic Blood Culture - Preliminary Blood - Venous NO GROWTH AFTER 2 DAYS Anaerobic Blood Culture - Preliminary NO GROWTH AFTER 2 DAYS 03/19/21 12:45 Aerobic Blood Culture - Preliminary Blood - Venous - Lab Draw NO GROWTH AFTER 2 DAYS Anaerobic Blood Culture - Preliminary NO GROWTH AFTER 2 DAYS Sepsis Event Note - Evaluation Sepsis Screening Result: No Definite Risk - Focused Exam Vital Signs: Vital Signs Temp Pulse Resp BP Pulse Ox 03/21/21 11:00 35.2 C L 69 18 117/70 93 L 03/21/21 07:20 35.1 C L 58 L 15 97/50 L 92 L 03/21/21 02:55 36.3 C 59 L 18 104/59 L 92 L - Problem List & Annotations (1) Pneumonia due to COVID-19 virus SNOMED Code(s): 714816013914309391 Code(s): U07.1 - COVID-19; J12.82 - PNEUMONIA DUE TO CORONAVIRUS DISEASE 2019 Status: Acute Current Visit: Yes (2) Acute respiratory failure due to COVID-19 SNOMED Code(s): 646173888 Code(s): U07.1 - COVID-19; J96.00 - ACUTE RESPIRATORY FAILURE, UNSP W HYPOXIA OR HYPERCAPNIA Status: Acute Current Visit: Yes (3) Acute kidney injury SNOMED Code(s): 70758113, 15677850 Code(s): N17.9 - ACUTE KIDNEY FAILURE, UNSPECIFIED Status: Acute Current Visit: Yes (4) Hypothyroidism SNOMED Code(s): 68233975 Code(s): E03.9 - HYPOTHYROIDISM, UNSPECIFIED Status: Chronic Current Visit: Yes Qualifiers: Hypothyroidism type: acquired Qualified Code(s): E03.9 - Hypothyroidism, unspecified - Problem List Review Problem List Initiated/Reviewed/Updated: Yes - My Orders Last 24 Hours: My Active Orders 03/20/21 14:00 Remdesivir 100 mg Sodium Chloride 0.9% [Normal Saline] 100 ml IV Q24H 03/20/21 14:20 diphenhydrAMINE [Benadryl] 25 mg PO Q4H PRN traMADol [Ultram] 50 mg PO Q8H PRN 03/20/21 17:00 dexAMETHasone [Decadron] 6 mg IVPUSH Q24H 03/20/21 19:56 Consult to Respiratory Therapy [Respiratory Care Assess and Treatment] [CONS] Routine 03/21/21 14:30 Baricitinib [Olumiant] 2 mg PO Q24H Doxycycline [Vibramycin] 100 mg Sodium Chloride 0.9% [Normal Saline AdvBag] 100 ml IV Q12H 03/21/21 15:00 cefTRIAXone [Rocephin] 1 gm Sodium Chloride 0.9% [Normal Saline AdvBag] 50 ml IV Q24H 03/22/21 05:00 CBC W/O DIFF,HEMOGRAM [HEME] Timed (1) COMPREHENSIVE METABOLIC PN,CMP [CHEM] Timed - Plan Plan:: ASSESSMENT AND PLAN - COVID-19 pneumonia-complicated by acute respiratory failure with hypoxia. Symptom onset about 03/12. Now requiring high support from heated/high flow nasal cannula. Procalcitonin level higher today than yesterday and in a range t hat suggests antibiotics for a lower respiratory tract infection. -Remdesivir x5 days -Dexamethasone 6 mg daily (day 3) -Baricitinib 2 mg daily (day 1) -Empiric antibiotics with doxycycline and ceftriaxone -Enoxaparin every 24 hours -Symptomatic management of cough and fever -Isolation precautions -D-dimer and CRP every 2 days Acute kidney injury-secondary to dehydration and poor intake. Creatinine stable but not improved as I expected. Hopefully with some better oral intake this will improve over the next 24 hours. -Encourage oral intake Hypothyroidism- -Continue home supplement Maintenance issues - -DVT prophylaxis-enoxaparin -GI prophylaxis-PPI -Nutrition-regular -Ramsey catheter-not indicated CODE STATUS -DO NOT RESUSCITATE but intubation is okay Disposition -I anticipate discharge home after the hospital stay Primary care physician -Dr Khanh Castillo M.D.
[2021-03-21] MEDS ORDERED: Sodium Chloride 0.65% Nasal Spray 45 ML Bottle NAS PRN (14:45)
[2021-03-21] MEDS: REMDESIVIR 100 MG in Sodium Chloride 0.9% 100 ML IV SCH (14:51)
[2021-03-21] MEDS: cefTRIAXone 1 GM in Sodium Chloride 0.9% 50 ML IV SCH (15:40)
[2021-03-21] MEDS: traMADol 50 MG Tab PO PRN (15:57)
[2021-03-21] MEDS: Doxycycline 100 MG in Sodium Chloride 0.9% 100 ML IV SCH (16:30)
[2021-03-21] MEDS: Dexamethasone 4 MG/ML SDV IVPUSH SCH (17:40)
[2021-03-21] MEDS: Enoxaparin 30 MG/0.3 ML Syringe SUBCUT SCH (17:43)
[2021-03-21] MEDS: LORazepam 2 MG/ML SDV IVPUSH PRN (19:37)
[2021-03-22] MEDS: Doxycycline 100 MG in Sodium Chloride 0.9% 100 ML IV SCH ×2 (04:10→15:24)
[2021-03-22] MEDS: Pantoprazole 40 MG Tab.CR PO SCH (07:40)
[2021-03-22] MEDS: Levothyroxine 100 MCG Tab PO SCH (07:40)
[2021-03-22] MEDS: Aspirin 81 MG Tab.Chew PO SCH (09:00)
--- NOTE | 2021-03-22 09:51 | PCM.PN ---
- General Info Date of Service: 03/22/21 Subjective Update: No acute events overnight. Patient feels about the same again today. Still having a mild intermittent headache as well as diffuse muscle aches. Comfortable at rest but short of breath with any activity. No fevers. Not much of an appetite. Fluid intake a little better. Still requiring high level of support from the heated/high flow nasal cannula. Tolerating antibiotics initiated yesterday. Functional Status: Reports: Pain Controlled, Tolerating Diet - Review of Systems General: Reports: Weakness Pulmonary: Denies: Cough Musculoskeletal: Reports: Back Pain - Patient Data Vitals - Most Recent: Last Vital Signs Temp 35.8 C L 03/22/21 08:00 Pulse 57 L 03/22/21 08:00 Resp 18 03/22/21 08:00 BP 114/49 L 03/22/21 08:00 Pulse Ox 96 03/22/21 08:00 Weight - Most Recent: 69.853 kg I&O - Last 24 Hours: Intake & Output 03/21/21 03/22/21 03/22/21 22:59 06:59 14:59 Intake Total 390 Balance 390 Lab Results Last 24 Hours: Laboratory Results - last 24 hr 03/22/21 03/22/21 Range/Units 06:05 06:05 WBC 5.4 (4.5-11.0) K/uL RBC 4.67 (3.30-5.50) M/uL Hgb 14.2 (12.0-15.0) g/dL Hct 42.0 (36.0-48.0) % MCV 90 (80-98) fL MCH 30 (27-31) pg MCHC 34 (32-36) % Plt Count 247 (150-400) K/uL Sodium 134 L (140-148) mmol/L Potassium 4.9 (3.6-5.2) mmol/L Chloride 101 (100-108) mmol/L Carbon Dioxide 25 (21-32) mmol/L Anion Gap 12.9 (5.0-14.0) mmol/L BUN 52 H (7-18) mg/dL Creatinine 1.3 H (0.6-1.0) mg/dL Est Cr Clr Drug Dosing 27.32 mL/min Estimated GFR (MDRD) 39 L (>60) Glucose 170 H (74-106) mg/dL Calcium 8.5 (8.5-10.1) mg/dL Total Bilirubin 0.2 (0.2-1.0) mg/dL AST 47 H (15-37) U/L ALT 36 (12-78) U/L Alkaline Phosphatase 44 L (46-116) U/L Total Protein 6.3 L (6.4-8.2) g/dL Albumin 2.5 L (3.4-5.0) g/dL Globulin 3.8 H (2.3-3.5) g/dL Albumin/Globulin Ratio 0.7 L (1.2-2.2) Tate Results Last 24 Hours: Microbiology 03/19/21 12:35 Aerobic Blood Culture - Preliminary Blood - Venous NO GROWTH AFTER 2 DAYS Anaerobic Blood Culture - Preliminary NO GROWTH AFTER 2 DAYS 03/19/21 12:45 Aerobic Blood Culture - Preliminary Blood - Venous - Lab Draw NO GROWTH AFTER 2 DAYS Anaerobic Blood Culture - Preliminary NO GROWTH AFTER 2 DAYS Med Orders - Current: Current Medications Acetaminophen (Acetaminophen 325 Mg Tab) 650 mg PO Q4H PRN PRN Reason: Pain (Mild 1-3)/fever Last Admin: 03/21/21 11:05 Dose: 650 mg Documented by: Aspirin (Aspirin 81 Mg Tab.Chew) 81 mg PO DAILY [facility] Last Admin: 03/21/21 08:54 Dose: Not Given Documented by: Baricitinib (Baricitinib 2 Mg Tab) 2 mg PO Q24H [facility] Stop: 03/30/21 14:31 Last Admin: 03/21/21 15:53 Dose: 2 mg Documented by: Benzonatate (Benzonatate 100 Mg Cap) 100 mg PO TID PRN PRN Reason: Cough Calcium Carbonate/Glycine (Calcium Carbonate 500 Mg Tab.Chew) 1,000 mg PO Q2H PRN PRN Reason: Indigestion Last Admin: 03/19/21 20:32 Dose: 1,000 mg Documented by: Dexamethasone (Dexamethasone 4 Mg/Ml Sdv) 6 mg IVPUSH Q24H [facility] Last Admin: 03/21/21 17:40 Dose: 6 mg Documented by: Diphenhydramine HCl (Diphenhydramine 25 Mg Cap) 25 mg PO Q4H PRN PRN Reason: Itching Last Admin: 03/21/21 04:38 Dose: 25 mg Documented by: Enoxaparin Sodium (Enoxaparin 30 Mg/0.3 Ml Syringe) 30 mg SUBCUT Q24H [facility] Last Admin: 03/21/21 17:43 Dose: 30 mg Documented by: Guaifenesin/Dextromethorphan (Guaifenesin/Dextromethorphan 100-10 Mg/5 Ml Soln 10 Ml Cup) 10 ml PO Q4H PRN PRN Reason: Cough Remdesivir 100 mg/ Sodium (Chloride) 100 mls @ 100 mls/hr IV Q24H [facility] Stop: 03/23/21 14:59 Last Admin: 03/21/21 14:51 Dose: 100 mls/hr Documented by: Doxycycline Hyclate 100 mg/ (Sodium Chloride) 100 mls @ 100 mls/hr IV Q12H [facility] Last Admin: 03/22/21 04:10 Dose: 100 mls/hr Documented by: Ceftriaxone Sodium 1 gm/ (Sodium Chloride) 50 mls @ 100 mls/hr IV Q24H [facility] Last Admin: 03/21/21 15:40 Dose: 100 mls/hr Documented by: Levothyroxine Sodium ([facility]ine 100 Mcg Tab) [facility] Last Admin: 03/22/21 07:40 Dose: 100 mcg Documented by: Lorazepam (Lorazepam 2 Mg/Ml Sdv) 0.5 mg IVPUSH Q4H PRN PRN Reason: Nausea/Vomiting Last Admin: 03/21/21 19:37 Dose: 0.5 mg Documented by: Magnesium Hydroxide (Magnesium Hydroxide 400 Mg/5 Ml Susp 30 Ml Cup) 30 ml PO Q12H PRN PRN Reason: Constipation Melatonin (Melatonin 3 Mg Tab) 9 mg PO BEDTIME PRN PRN Reason: sleep Ondansetron HCl (Ondansetron 4 Mg/2 Ml Sdv) 4 mg IV Q6H PRN PRN Reason: Nausea/Vomiting Ondansetron HCl (Ondansetron 4 Mg Tab.Dis) 4 mg PO Q6H PRN PRN Reason: Nausea able to take PO Last Admin: 03/20/21 10:00 Dose: 4 mg Documented by: Pantoprazole Sodium (Pantoprazole 40 Mg Tab.Cr) 40 mg PO ACBREAKFAST [facility] Last Admin: 03/22/21 07:40 Dose: 40 mg Documented by: Senna/Docusate Sodium (Docusate Sodium/Sennosides 50-8.6 Mg Tab) 1 tab PO BID PRN PRN Reason: Constipation Sodium Chloride (Sodium Chloride 0.65% Nasal Dewitt 45 Ml Bottle) 0 ml MASTER Q2H PRN PRN Reason: Dryness Tramadol HCl (Tramadol 50 Mg Tab) 50 mg PO Q8H PRN PRN Reason: Pain (moderate 4-6) Last Admin: 03/21/21 15:57 Dose: 50 mg Documented by: Discontinued Medications Dexamethasone (Dexamethasone 4 Mg/Ml Sdv) 6 mg IVPUSH ONETIME ONE Stop: 03/19/21 16:36 Last Admin: 03/19/21 18:15 Dose: 6 mg Documented by: Remdesivir 200 mg/ Sodium (Chloride) 250 mls @ 250 mls/hr IV ONETIME ONE Stop: 03/19/21 14:59 Last Admin: 03/19/21 14:06 Dose: 250 mls/hr Documented by: - Exam Quality Assessment: Supplemental Oxygen General: Alert, Oriented, Cooperative, No Acute Distress Lungs: Normal Respiratory Effort. No: Wheezing GI/Abdominal Exam: Soft, No Distention Extremities: No Pedal Edema. No: Increased Warmth Skin: Warm, Dry Psy/Mental Status: Alert, Normal Affect - Patient Data Lab Results Last 24 hrs: Laboratory Results - last 24 hr 03/22/21 03/22/21 Range/Units 06:05 06:05 WBC 5.4 (4.5-11.0) K/uL RBC 4.67 (3.30-5.50) M/uL Hgb 14.2 (12.0-15.0) g/dL Hct 42.0 (36.0-48.0) % MCV 90 (80-98) fL MCH 30 (27-31) pg MCHC 34 (32-36) % Plt Count 247 (150-400) K/uL Sodium 134 L (140-148) mmol/L Potassium 4.9 (3.6-5.2) mmol/L Chloride 101 (100-108) mmol/L Carbon Dioxide 25 (21-32) mmol/L Anion Gap 12.9 (5.0-14.0) mmol/L BUN 52 H (7-18) mg/dL Creatinine 1.3 H (0.6-1.0) mg/dL Est Cr Clr Drug Dosing 27.32 mL/min Estimated GFR (MDRD) 39 L (>60) Glucose 170 H (74-106) mg/dL Calcium 8.5 (8.5-10.1) mg/dL Total Bilirubin 0.2 (0.2-1.0) mg/dL AST 47 H (15-37) U/L ALT 36 (12-78) U/L Alkaline Phosphatase 44 L (46-116) U/L Total Protein 6.3 L (6.4-8.2) g/dL Albumin 2.5 L (3.4-5.0) g/dL Globulin 3.8 H (2.3-3.5) g/dL Albumin/Globulin Ratio 0.7 L (1.2-2.2) Result Diagrams: 03/22/21 06:05 03/22/21 06:05 [facility] Results Last 24 hrs: Microbiology 03/19/21 12:35 Aerobic Blood Culture - Preliminary Blood - Venous NO GROWTH AFTER 2 DAYS Anaerobic Blood Culture - Preliminary NO GROWTH AFTER 2 DAYS 03/19/21 12:45 Aerobic Blood Culture - Preliminary Blood - Venous - Lab Draw NO GROWTH AFTER 2 DAYS Anaerobic Blood Culture - Preliminary NO GROWTH AFTER 2 DAYS Sepsis Event Note - Evaluation Sepsis Screening Result: No Definite Risk - Focused Exam Vital Signs: Vital Signs Temp Pulse Resp BP Pulse Ox 03/22/21 08:00 35.8 C L 57 L 18 114/49 L 96 03/22/21 02:06 36.1 C 57 L 15 109/52 L 96 03/22/21 00:00 36.2 C 16 92 L - Problem List & Annotations (1) Pneumonia due to COVID-19 virus SNOMED Code(s): 645201443441793803 Code(s): U07.1 - COVID-19; J12.82 - PNEUMONIA DUE TO CORONAVIRUS DISEASE 2019 Status: Acute Current Visit: Yes (2) Acute respiratory failure due to COVID-19 SNOMED Code(s): 031238538 Code(s): U07.1 - COVID-19; J96.00 - ACUTE RESPIRATORY FAILURE, UNSP W HYPOXIA OR HYPERCAPNIA Status: Acute Current Visit: Yes (3) Acute kidney injury SNOMED Code(s): 49337473, 37140561 Code(s): N17.9 - ACUTE KIDNEY FAILURE, UNSPECIFIED Status: Acute Current Visit: Yes (4) Hypothyroidism SNOMED Code(s): 14756867 Code(s): E03.9 - HYPOTHYROIDISM, UNSPECIFIED Status: Chronic Current Visit: Yes Qualifiers: Hypothyroidism type: acquired Qualified Code(s): E03.9 - Hypothyroidism, unspecified - Problem List Review Problem List Initiated/Reviewed/Updated: Yes - My Orders Last 24 Hours: My Active Orders 03/21/21 14:30 Baricitinib [Olumiant] 2 mg PO Q24H 03/21/21 14:45 Sodium Chloride 0.65% [[place] Nasal Dewitt] 0 ml MASTER Q2H PRN 03/21/21 15:00 cefTRIAXone [Rocephin] 1 gm Sodium Chloride 0.9% [Normal Saline AdvBag] 50 ml IV Q24H 03/21/21 15:30 Doxycycline [Vibramycin] 100 mg Sodium Chloride 0.9% [Normal Saline AdvBag] 100 ml IV Q12H 03/23/21 05:00 COMPREHENSIVE METABOLIC PN,CMP [CHEM] Timed CRP [C-REACTIVE PROTEIN] [CHEM] Timed D-DIMER QUANTITATIVE [COAG] Timed PROCALCITONIN [CHEM] Routine - Plan Plan:: ASSESSMENT AND PLAN - COVID-19 pneumonia-complicated by acute respiratory failure with hypoxia. Symptom onset about 03/12. Stable with support from heated/high flow nasal cannula. Tolerating antibiotics. Clinically she looks a little better. -Remdesivir x5 days -Dexamethasone 6 mg daily (day 4) -Baricitinib 2 mg daily (day 2) -Empiric antibiotics with doxycycline and ceftriaxone (day 2) -Enoxaparin every 24 hours -Symptomatic management of cough and fever -Isolation precautions -D-dimer and CRP every 2 days Acute kidney injury-secondary to dehydration and poor intake. Creatinine has improved over the past 24 hours. -Encourage oral intake Hypothyroidism- -Continue home supplement Maintenance issues - -DVT prophylaxis-enoxaparin -GI prophylaxis-PPI -Nutrition-regular -Ramsey catheter-not indicated CODE STATUS -DO NOT RESUSCITATE but intubation is okay Disposition -I anticipate discharge home after the hospital stay Primary care physician -Dr Khanh Castillo M.D.
[2021-03-22] MEDS: Acetaminophen 325 MG Tab PO PRN ×2 (10:52→22:04)
[2021-03-22] MEDS: REMDESIVIR 100 MG in Sodium Chloride 0.9% 100 ML IV SCH (13:33)
[2021-03-22] MEDS: cefTRIAXone 1 GM in Sodium Chloride 0.9% 50 ML IV SCH (14:42)
[2021-03-22] MEDS: Dexamethasone 4 MG/ML SDV IVPUSH SCH (16:35)
[2021-03-22] MEDS: Enoxaparin 30 MG/0.3 ML Syringe SUBCUT SCH (17:00)
[2021-03-22] MEDS: Calcium Carbonate 500 MG Tab.Chew PO PRN (22:05)
[2021-03-23] MEDS: traMADol 50 MG Tab PO PRN ×2 (00:16→22:17)
[2021-03-23] MEDS: Melatonin 3 MG Tab PO PRN ×2 (00:16→22:17)
[2021-03-23] MEDS: Doxycycline 100 MG in Sodium Chloride 0.9% 100 ML IV SCH ×3 (02:16→16:18)
[2021-03-23] MEDS: diphenhydrAMINE 25 MG Cap PO PRN (04:00)
[2021-03-23] MEDS: Pantoprazole 40 MG Tab.CR PO SCH (07:34)
[2021-03-23] MEDS: Levothyroxine 100 MCG Tab PO SCH (07:35)
[2021-03-23] MEDS: Aspirin 81 MG Tab.Chew PO SCH (09:13)
--- NOTE | 2021-03-23 10:09 | PCM.PN ---
- General Info Date of Service: 03/23/21 Subjective Update: No acute events overnight. No significant changes in the past 24 hours. She continues to have diffuse myalgias and arthralgias. She is short of breath with any activity. No fevers. Still requiring heated/high flow oxygen with a stable level. She was able to get up to the chair to have some breakfast today. CRP and D-dimer are improving. Functional Status: Reports: Pain Controlled, Tolerating Diet - Review of Systems General: Reports: Weakness, Fatigue Pulmonary: Reports: Shortness of Breath Musculoskeletal: Reports: Back Pain - Patient Data Vitals - Most Recent: Last Vital Signs Temp 36.2 C 03/23/21 07:00 Pulse 56 L 03/23/21 07:00 Resp 18 03/23/21 07:00 BP 115/65 03/23/21 07:00 Pulse Ox 93 L 03/23/21 07:00 Weight - Most Recent: 69.853 kg I&O - Last 24 Hours: Intake & Output 03/22/21 03/23/21 03/23/21 22:59 06:59 14:59 Output Total 400 550 Balance -400 -550 Lab Results Last 24 Hours: Laboratory Results - last 24 hr 03/23/21 03/23/21 03/23/21 Range/Units 05:00 05:00 05:00 D-Dimer, Quantitative 803.61 H (0.0-500.0) ng/mL Sodium 137 L (140-148) mmol/L Potassium 4.7 (3.6-5.2) mmol/L Chloride 103 (100-108) mmol/L Carbon Dioxide 26 (21-32) mmol/L Anion Gap 12.7 (5.0-14.0) mmol/L BUN 43 H (7-18) mg/dL Creatinine 1.1 H (0.6-1.0) mg/dL Est Cr Clr Drug Dosing 32.29 mL/min Estimated GFR (MDRD) 47 L (>60) Glucose 164 H (74-106) mg/dL Calcium 8.4 L (8.5-10.1) mg/dL Total Bilirubin 0.3 (0.2-1.0) mg/dL AST 43 H (15-37) U/L ALT 35 (12-78) U/L Alkaline Phosphatase 42 L (46-116) U/L C-Reactive Protein 1.26 H (0.0-0.3) mg/dL Total Protein 6.0 L (6.4-8.2) g/dL Albumin 2.5 L (3.4-5.0) g/dL Globulin 3.5 (2.3-3.5) g/dL Albumin/Globulin Ratio 0.7 L (1.2-2.2) Procalcitonin 0.06 ng/mL Tate Results Last 24 Hours: Microbiology 03/19/21 12:35 Aerobic Blood Culture - Preliminary Blood - Venous NO GROWTH AFTER 3 DAYS Anaerobic Blood Culture - Preliminary NO GROWTH AFTER 3 DAYS 03/19/21 12:45 Aerobic Blood Culture - Preliminary Blood - Venous - Lab Draw NO GROWTH AFTER 3 DAYS Anaerobic Blood Culture - Preliminary NO GROWTH AFTER 3 DAYS Med Orders - Current: Current Medications Acetaminophen (Acetaminophen 325 Mg Tab) 650 mg PO Q4H PRN PRN Reason: Pain (Mild 1-3)/fever Last Admin: 03/22/21 22:04 Dose: 650 mg Documented by: Aspirin (Aspirin 81 Mg Tab.Chew) 81 mg PO DAILY [facility] Last Admin: 03/23/21 09:13 Dose: 81 mg Documented by: Baricitinib (Baricitinib 2 Mg Tab) 2 mg PO Q24H [facility] Stop: 03/30/21 14:31 Last Admin: 03/22/21 13:34 Dose: 2 mg Documented by: Benzonatate (Benzonatate 100 Mg Cap) 100 mg PO TID PRN PRN Reason: Cough Calcium Carbonate/Glycine (Calcium Carbonate 500 Mg Tab.Chew) 1,000 mg PO Q2H PRN PRN Reason: Indigestion Last Admin: 03/22/21 22:05 Dose: 1,000 mg Documented by: Dexamethasone (Dexamethasone 4 Mg/Ml Sdv) 6 mg IVPUSH Q24H [facility] Last Admin: 03/22/21 16:35 Dose: 6 mg Documented by: Diphenhydramine HCl (Diphenhydramine 25 Mg Cap) 25 mg PO Q4H PRN PRN Reason: Itching Last Admin: 03/23/21 04:00 Dose: 25 mg Documented by: Enoxaparin Sodium (Enoxaparin 30 Mg/0.3 Ml Syringe) 30 mg SUBCUT Q24H [facility] Last Admin: 03/22/21 17:00 Dose: 30 mg Documented by: Guaifenesin/Dextromethorphan (Guaifenesin/Dextromethorphan 100-10 Mg/5 Ml Soln 10 Ml Cup) 10 ml PO Q4H PRN PRN Reason: Cough Remdesivir 100 mg/ Sodium (Chloride) 100 mls @ 100 mls/hr IV Q24H [facility] Stop: 03/23/21 14:59 Last Admin: 03/22/21 13:33 Dose: 100 mls/hr Documented by: Doxycycline Hyclate 100 mg/ (Sodium Chloride) 100 mls @ 100 mls/hr IV Q12H [facility] Last Admin: 03/23/21 03:50 Dose: Not Given Documented by: Ceftriaxone Sodium 1 gm/ (Sodium Chloride) 50 mls @ 100 mls/hr IV Q24H [facility] Last Admin: 03/22/21 14:42 Dose: 100 mls/hr Documented by: Levothyroxine Sodium (Levothyroxine 100 Mcg Tab) 100 mcg PO ACBREAKFAST [facility] Last Admin: 03/23/21 07:35 Dose: 100 mcg Documented by: Lorazepam (Lorazepam 2 Mg/Ml Sdv) 0.5 mg IVPUSH Q4H PRN PRN Reason: Nausea/Vomiting Last Admin: 03/21/21 19:37 Dose: 0.5 mg Documented by: Magnesium Hydroxide (Magnesium Hydroxide 400 Mg/5 Ml Susp 30 Ml Cup) 30 ml PO Q12H PRN PRN Reason: Constipation Melatonin (Melatonin 3 Mg Tab) 9 mg PO BEDTIME PRN PRN Reason: sleep Last Admin: 03/23/21 00:16 Dose: 9 mg Documented by: Ondansetron HCl (Ondansetron 4 Mg/2 Ml Sdv) 4 mg IV Q6H PRN PRN Reason: Nausea/Vomiting Ondansetron HCl (Ondansetron 4 Mg Tab.Dis) 4 mg PO Q6H PRN PRN Reason: Nausea able to take PO Last Admin: 03/20/21 10:00 Dose: 4 mg Documented by: Pantoprazole Sodium (Pantoprazole 40 Mg Tab.Cr) 40 mg PO ACBREAKFAST [facility] Last Admin: 03/23/21 07:34 Dose: 40 mg Documented by: Senna/Docusate Sodium (Docusate Sodium/Sennosides 50-8.6 Mg Tab) 1 tab PO BID PRN PRN Reason: Constipation Sodium Chloride (Sodium Chloride 0.65% Nasal [place] 45 Ml Bottle) 0 ml MASTER Q2H PRN PRN Reason: Dryness Tramadol HCl (Tramadol 50 Mg Tab) 50 mg PO Q8H PRN PRN Reason: Pain (moderate 4-6) Last Admin: 03/23/21 00:16 Dose: 50 mg Documented by: Discontinued Medications Dexamethasone (Dexamethasone 4 Mg/Ml Sdv) 6 mg IVPUSH ONETIME ONE Stop: 03/19/21 16:36 Last Admin: 03/19/21 18:15 Dose: 6 mg Documented by: Remdesivir 200 mg/ Sodium (Chloride) 250 mls @ 250 mls/hr IV ONETIME ONE Stop: 03/19/21 14:59 Last Admin: 03/19/21 14:06 Dose: 250 mls/hr Documented by: - Exam Quality Assessment: Supplemental Oxygen General: Alert, Oriented, Cooperative, No Acute Distress Lungs: Normal Respiratory Effort. No: Wheezing GI/Abdominal Exam: Soft, No Distention Extremities: No Pedal Edema. No: Increased Warmth Skin: Warm, Dry Psy/Mental Status: Alert, Normal Affect - Patient Data Lab Results Last 24 hrs: Laboratory Results - last 24 hr 03/23/21 03/23/21 03/23/21 Range/Units 05:00 05:00 05:00 D-Dimer, Quantitative 803.61 H (0.0-500.0) ng/mL Sodium 137 L (140-148) mmol/L Potassium 4.7 (3.6-5.2) mmol/L Chloride 103 (100-108) mmol/L Carbon Dioxide 26 (21-32) mmol/L Anion Gap 12.7 (5.0-14.0) mmol/L BUN 43 H (7-18) mg/dL Creatinine 1.1 H (0.6-1.0) mg/dL Est Cr Clr Drug Dosing 32.29 mL/min Estimated GFR (MDRD) 47 L (>60) Glucose 164 H (74-106) mg/dL Calcium 8.4 L (8.5-10.1) mg/dL Total Bilirubin 0.3 (0.2-1.0) mg/dL AST 43 H (15-37) U/L ALT 35 (12-78) U/L Alkaline Phosphatase 42 L (46-116) U/L C-Reactive Protein 1.26 H (0.0-0.3) mg/dL Total Protein 6.0 L (6.4-8.2) g/dL Albumin 2.5 L (3.4-5.0) g/dL Globulin 3.5 (2.3-3.5) g/dL Albumin/Globulin Ratio 0.7 L (1.2-2.2) Procalcitonin 0.06 ng/mL Result Diagrams: 03/22/21 06:05 03/23/21 05:00 Ttae Results Last 24 hrs: Microbiology 03/19/21 12:35 Aerobic Blood Culture - Preliminary Blood - Venous NO GROWTH AFTER 3 DAYS Anaerobic Blood Culture - Preliminary NO GROWTH AFTER 3 DAYS 03/19/21 12:45 Aerobic Blood Culture - Preliminary Blood - Venous - Lab Draw NO GROWTH AFTER 3 DAYS Anaerobic Blood Culture - Preliminary NO GROWTH AFTER 3 DAYS Sepsis Event Note - Evaluation Sepsis Screening Result: No Definite Risk - Focused Exam Vital Signs: Vital Signs Temp Pulse Resp BP Pulse Ox Pulse Ox 03/23/21 07:00 36.2 C 56 L 18 115/65 93 L 03/23/21 05:00 90 L 03/23/21 02:26 36.2 C 58 L 16 114/70 98 - Problem List & Annotations (1) Pneumonia due to COVID-19 virus SNOMED Code(s): 664034125002595476 Code(s): U07.1 - COVID-19; J12.82 - PNEUMONIA DUE TO CORONAVIRUS DISEASE 2019 Status: Acute Current Visit: Yes (2) Acute respiratory failure due to COVID-19 SNOMED Code(s): 490745217 Code(s): U07.1 - COVID-19; J96.00 - ACUTE RESPIRATORY FAILURE, UNSP W HYPOXIA OR HYPERCAPNIA Status: Acute Current Visit: Yes (3) Acute kidney injury SNOMED Code(s): 52188481, 42763503 Code(s): N17.9 - ACUTE KIDNEY FAILURE, UNSPECIFIED Status: Acute Current Visit: Yes (4) Hypothyroidism SNOMED Code(s): 59330930 Code(s): E03.9 - HYPOTHYROIDISM, UNSPECIFIED Status: Chronic Current Visit: Yes Qualifiers: Hypothyroidism type: acquired Qualified Code(s): E03.9 - Hypothyroidism, unspecified - Problem List Review Problem List Initiated/Reviewed/Updated: Yes - My Orders Last 24 Hours: My Active Orders 03/24/21 05:00 COMPREHENSIVE METABOLIC PN,CMP [CHEM] Timed - Plan Plan:: ASSESSMENT AND PLAN - COVID-19 pneumonia-complicated by acute respiratory failure with hypoxia. Symptom onset about 03/12. Stable with support from heated/high flow nasal cannula. Tolerating antibiotics. Slowly improving. -Remdesivir x5 days -Dexamethasone 6 mg daily (day 5) -Baricitinib 2 mg daily (day 3) -Empiric antibiotics with doxycycline and ceftriaxone (day 3) -Enoxaparin every 24 hours -Symptomatic management of cough and fever -Isolation precautions -D-dimer and CRP every 2 days Acute kidney injury-secondary to dehydration and poor intake. Creatinine has improved further over the past 24 hours. -Encourage oral intake Hypothyroidism- -Continue home supplement Maintenance issues - -DVT prophylaxis-enoxaparin -GI prophylaxis-PPI -Nutrition-regular -[place] catheter-not indicated CODE STATUS -DO NOT RESUSCITATE but intubation is okay Disposition -I anticipate discharge home after the hospital stay Primary care physician -Dr Khanh Castillo M.D.
[2021-03-23] MEDS: Acetaminophen 325 MG Tab PO PRN (13:02)
[2021-03-23] MEDS: REMDESIVIR 100 MG in Sodium Chloride 0.9% 100 ML IV SCH (14:06)
[2021-03-23] MEDS: cefTRIAXone 1 GM in Sodium Chloride 0.9% 50 ML IV SCH (15:22)
[2021-03-23] MEDS: Dexamethasone 4 MG/ML SDV IVPUSH SCH (16:18)
[2021-03-23] MEDS: Enoxaparin 30 MG/0.3 ML Syringe SUBCUT SCH (17:36)
[2021-03-24] MEDS: Doxycycline 100 MG in Sodium Chloride 0.9% 100 ML IV SCH ×2 (03:00→16:22)
[2021-03-24] MEDS: Levothyroxine 100 MCG Tab PO SCH (08:15)
[2021-03-24] MEDS: Pantoprazole 40 MG Tab.CR PO SCH (08:15)
[2021-03-24] MEDS: Aspirin 81 MG Tab.Chew PO SCH (08:15)
--- NOTE | 2021-03-24 12:39 | PCM.PN ---
- General Info Date of Service: 03/24/21 Subjective Update: No acute events overnight. Patient still feels weak and tired. Not much of an appetite. Still has generalized aches and pains. Spends most of her time in the bed. We have been able to turn her heated/high flow oxygen down to 50 L/min and 64% FiO2. No fevers. - Patient Data Vitals - Most Recent: Last Vital Signs Temp 36.2 C 03/24/21 10:21 Pulse 66 03/24/21 10:21 Resp 20 03/24/21 10:21 BP 112/55 L 03/24/21 10:21 Pulse Ox 98 03/24/21 10:21 Weight - Most Recent: 69.853 kg I&O - Last 24 Hours: Intake & Output 03/23/21 03/24/21 03/24/21 22:59 06:59 14:59 Output Total 400 Balance -400 Lab Results Last 24 Hours: Laboratory Results - last 24 hr 03/24/21 Range/Units 05:00 Sodium 138 L (140-148) mmol/L Potassium 4.6 (3.6-5.2) mmol/L Chloride 104 (100-108) mmol/L Carbon Dioxide 25 (21-32) mmol/L Anion Gap 13.6 (5.0-14.0) mmol/L BUN 35 H (7-18) mg/dL Creatinine 1.0 (0.6-1.0) mg/dL Est Cr Clr Drug Dosing 35.52 mL/min Estimated GFR (MDRD) 53 L (>60) Glucose 156 H (74-106) mg/dL Calcium 8.5 (8.5-10.1) mg/dL Total Bilirubin 0.4 (0.2-1.0) mg/dL AST 38 H (15-37) U/L ALT 32 (12-78) U/L Alkaline Phosphatase 43 L (46-116) U/L Total Protein 6.0 L (6.4-8.2) g/dL Albumin 2.5 L (3.4-5.0) g/dL Globulin 3.5 (2.3-3.5) g/dL Albumin/Globulin Ratio 0.7 L (1.2-2.2) Tate Results Last 24 Hours: Microbiology 03/19/21 12:35 Aerobic Blood Culture - Preliminary Blood - Venous NO GROWTH AFTER 4 DAYS Anaerobic Blood Culture - Preliminary NO GROWTH AFTER 4 DAYS 03/19/21 12:45 Aerobic Blood Culture - Preliminary Blood - Venous - Lab Draw NO GROWTH AFTER 4 DAYS Anaerobic Blood Culture - Preliminary NO GROWTH AFTER 4 DAYS Med Orders - Current: Current Medications Acetaminophen (Acetaminophen 325 Mg Tab) 650 mg PO Q4H PRN PRN Reason: Pain (Mild 1-3)/fever Last Admin: 03/23/21 13:02 Dose: 650 mg Documented by: Aspirin (Aspirin 81 Mg Tab.Chew) 81 mg PO DAILY [facility] Last Admin: 03/24/21 08:15 Dose: 81 mg Documented by: Baricitinib (Baricitinib 2 Mg Tab) 2 mg PO Q24H [facility] Stop: 03/30/21 14:31 Last Admin: 03/23/21 14:31 Dose: 2 mg Documented by: Benzonatate (Benzonatate 100 Mg Cap) 100 mg PO TID PRN PRN Reason: Cough Calcium Carbonate/Glycine (Calcium Carbonate 500 Mg Tab.Chew) 1,000 mg PO Q2H PRN PRN Reason: Indigestion Last Admin: 03/22/21 22:05 Dose: 1,000 mg Documented by: Dexamethasone (Dexamethasone 4 Mg/Ml Sdv) 6 mg IVPUSH Q24H [facility] Last Admin: 03/23/21 16:18 Dose: 6 mg Documented by: Diphenhydramine HCl (Diphenhydramine 25 Mg Cap) 25 mg PO Q4H PRN PRN Reason: Itching Last Admin: 03/23/21 04:00 Dose: 25 mg Documented by: Enoxaparin Sodium (Enoxaparin 40 Mg/0.4 Ml Syringe) 40 mg SUBCUT Q24H [facility] Guaifenesin/Dextromethorphan (Guaifenesin/Dextromethorphan 100-10 Mg/5 Ml Soln 10 Ml Cup) 10 ml PO Q4H PRN PRN Reason: Cough Doxycycline Hyclate 100 mg/ (Sodium Chloride) 100 mls @ 100 mls/hr IV Q12H [facility] Last Admin: 03/24/21 03:00 Dose: 100 mls/hr Documented by: Ceftriaxone Sodium 1 gm/ (Sodium Chloride) 50 mls @ 100 mls/hr IV Q24H [facility] Last Admin: 03/23/21 15:22 Dose: 100 mls/hr Documented by: Levothyroxine Sodium (Levothyroxine 100 Mcg Tab) 100 mcg PO ACBREAKFAST [facility] Last Admin: 03/24/21 08:15 Dose: 100 mcg Documented by: Lorazepam (Lorazepam 2 Mg/Ml Sdv) 0.5 mg IVPUSH Q4H PRN PRN Reason: Nausea/Vomiting Last Admin: 03/21/21 19:37 Dose: 0.5 mg Documented by: Magnesium Hydroxide (Magnesium Hydroxide 400 Mg/5 Ml Susp 30 Ml Cup) 30 ml PO Q12H PRN PRN Reason: Constipation Melatonin (Melatonin 3 Mg Tab) 9 mg PO BEDTIME PRN PRN Reason: sleep Last Admin: 03/23/21 22:17 Dose: 9 mg Documented by: Ondansetron HCl (Ondansetron 4 Mg/2 Ml Sdv) 4 mg IV Q6H PRN PRN Reason: Nausea/Vomiting Ondansetron HCl (Ondansetron 4 Mg Tab.Dis) 4 mg PO Q6H PRN PRN Reason: Nausea able to take PO Last Admin: 03/20/21 10:00 Dose: 4 mg Documented by: Pantoprazole Sodium (Pantoprazole 40 Mg Tab.Cr) 40 mg PO ACBREAKFAST [facility] Last Admin: 03/24/21 08:15 Dose: 40 mg Documented by: Senna/Docusate Sodium (Docusate Sodium/Sennosides 50-8.6 Mg Tab) 1 tab PO BID PRN PRN Reason: Constipation Sodium Chloride (Sodium Chloride 0.65% Nasal [place] 45 Ml Bottle) 0 ml MASTER Q2H PRN PRN Reason: Dryness Tramadol HCl (Tramadol 50 Mg Tab) 50 mg PO Q8H PRN PRN Reason: Pain (moderate 4-6) Last Admin: 03/23/21 22:17 Dose: 50 mg Documented by: Discontinued Medications Dexamethasone (Dexamethasone 4 Mg/Ml Sdv) 6 mg IVPUSH ONETIME ONE Stop: 03/19/21 16:36 Last Admin: 03/19/21 18:15 Dose: 6 mg Documented by: Enoxaparin Sodium (Enoxaparin 30 Mg/0.3 Ml Syringe) 30 mg SUBCUT Q24H [facility] Last Admin: 03/23/21 17:36 Dose: 30 mg Documented by: Remdesivir 200 mg/ Sodium (Chloride) 250 mls @ 250 mls/hr IV ONETIME ONE Stop: 03/19/21 14:59 Last Admin: 03/19/21 14:06 Dose: 250 mls/hr Documented by: Remdesivir 100 mg/ Sodium (Chloride) 100 mls @ 100 mls/hr IV Q24H [facility] Stop: 03/23/21 14:59 Last Admin: 03/23/21 14:06 Dose: 100 mls/hr Documented by: - Exam Quality Assessment: Supplemental Oxygen General: Alert, Oriented, Cooperative, No Acute Distress Lungs: Normal Respiratory Effort. No: Wheezing GI/Abdominal Exam: Soft, No Distention Extremities: No Pedal Edema. No: Increased Warmth Psy/Mental Status: Alert, Normal Affect - Patient Data Lab Results Last 24 hrs: Laboratory Results - last 24 hr 03/24/21 Range/Units 05:00 Sodium 138 L (140-148) mmol/L Potassium 4.6 (3.6-5.2) mmol/L Chloride 104 (100-108) mmol/L Carbon Dioxide 25 (21-32) mmol/L Anion Gap 13.6 (5.0-14.0) mmol/L BUN 35 H (7-18) mg/dL Creatinine 1.0 (0.6-1.0) mg/dL Est Cr Clr Drug Dosing 35.52 mL/min Estimated GFR (MDRD) 53 L (>60) Glucose 156 H (74-106) mg/dL Calcium 8.5 (8.5-10.1) mg/dL Total Bilirubin 0.4 (0.2-1.0) mg/dL AST 38 H (15-37) U/L ALT 32 (12-78) U/L Alkaline Phosphatase 43 L (46-116) U/L Total Protein 6.0 L (6.4-8.2) g/dL Albumin 2.5 L (3.4-5.0) g/dL Globulin 3.5 (2.3-3.5) g/dL Albumin/Globulin Ratio 0.7 L (1.2-2.2) Result Diagrams: 03/22/21 06:05 03/24/21 05:00 Tate Results Last 24 hrs: Microbiology 03/19/21 12:35 Aerobic Blood Culture - Preliminary Blood - Venous NO GROWTH AFTER 4 DAYS Anaerobic Blood Culture - Preliminary NO GROWTH AFTER 4 DAYS 03/19/21 12:45 Aerobic Blood Culture - Preliminary Blood - Venous - Lab Draw NO GROWTH AFTER 4 DAYS Anaerobic Blood Culture - Preliminary NO GROWTH AFTER 4 DAYS Sepsis Event Note - Evaluation Sepsis Screening Result: No Definite Risk - Focused Exam Vital Signs: Vital Signs Temp Pulse Resp BP Pulse Ox 03/24/21 10:21 36.2 C 66 20 112/55 L 98 03/24/21 07:00 36.3 C 58 L 18 125/70 03/24/21 03:02 36.3 C 54 L 20 109/49 L 96 03/24/21 01:28 94 L - Problem List & Annotations (1) Pneumonia due to COVID-19 virus SNOMED Code(s): 263982685615627040 Code(s): U07.1 - COVID-19; J12.82 - PNEUMONIA DUE TO CORONAVIRUS DISEASE 2019 Status: Acute Current Visit: Yes (2) Acute respiratory failure due to COVID-19 SNOMED Code(s): 245686212 Code(s): U07.1 - COVID-19; J96.00 - ACUTE RESPIRATORY FAILURE, UNSP W HYPOXIA OR HYPERCAPNIA Status: Acute Current Visit: Yes (3) Acute kidney injury SNOMED Code(s): 60168618, 99422060 Code(s): N17.9 - ACUTE KIDNEY FAILURE, UNSPECIFIED Status: Acute Current Visit: Yes (4) Hypothyroidism SNOMED Code(s): 86038779 Code(s): E03.9 - HYPOTHYROIDISM, UNSPECIFIED Status: Chronic Current Visit: Yes Qualifiers: Hypothyroidism type: acquired Qualified Code(s): E03.9 - Hypothyroidism, unspecified - Problem List Review Problem List Initiated/Reviewed/Updated: Yes - My Orders Last 24 Hours: My Active Orders 03/24/21 18:00 Enoxaparin [Lovenox] 40 mg SUBCUT Q24H 03/25/21 05:00 INR,PT,PROTHROMBIN TIME [COAG] Timed - Plan Plan:: ASSESSMENT AND PLAN - COVID-19 pneumonia-complicated by acute respiratory failure with hypoxia. Symptom onset about 03/12. Stable with support from heated/high flow nasal c annula and this is slowly being weaned. Not feeling much better but inflammatory markers are quite a bit better. -Remdesivir x5 days -Dexamethasone 6 mg daily (day 6) -Baricitinib 2 mg daily (day 4) -Empiric antibiotics with doxycycline and ceftriaxone (day 4) -Enoxaparin every 24 hours -Symptomatic management of cough and fever -Isolation precautions -D-dimer and CRP every 2 days Acute kidney injury-secondary to dehydration and poor intake. Creatinine has improved and remained stable. -Encourage oral intake Hypothyroidism- -Continue home supplement Maintenance issues - -DVT prophylaxis-enoxaparin -GI prophylaxis-PPI -Nutrition-regular -[place] catheter-not indicated CODE STATUS -DO NOT RESUSCITATE but intubation is okay Disposition -I anticipate discharge home after the hospital stay Primary care physician -Dr Khanh Castillo M.D.
[2021-03-24] MEDS: Ondansetron 4 MG Tab.DIS PO PRN (12:42)
[2021-03-24] MEDS: Acetaminophen 325 MG Tab PO PRN (12:52)
[2021-03-24] MEDS: cefTRIAXone 1 GM in Sodium Chloride 0.9% 50 ML IV SCH (15:20)
[2021-03-24] MEDS: Dexamethasone 4 MG/ML SDV IVPUSH SCH (16:28)
[2021-03-24] MEDS: Enoxaparin 40 MG/0.4 ML Syringe SUBCUT SCH (17:21)
[2021-03-24] MEDS: traMADol 50 MG Tab PO PRN (17:51)
[2021-03-25] MEDS: Doxycycline 100 MG in Sodium Chloride 0.9% 100 ML IV SCH (02:30)
[2021-03-25] MEDS: Pantoprazole 40 MG Tab.CR PO SCH (07:59)
[2021-03-25] MEDS: Aspirin 81 MG Tab.Chew PO SCH (08:00)
[2021-03-25] MEDS: Levothyroxine 100 MCG Tab PO SCH (08:00)
[2021-03-25] MEDS ORDERED: Bisacodyl 10 MG Supp RECTAL PRN (10:09)
[2021-03-25] MEDS: LORazepam 2 MG/ML SDV IVPUSH PRN (12:50)
[2021-03-25] MEDS ORDERED: LORazepam 0.5 MG Tab PO PRN (12:53)
--- NOTE | 2021-03-25 14:17 | PCM.PN ---
- General Info Date of Service: 03/25/21 Subjective Update: Ms. Espinoza has experienced mild progressive improvement in oxygenation over the past few days. She remains on high flow humidified oxygen. She continues to feel very weak and fatigued. Current saturations are very good but she does feel some air hunger. Appetite and overall strength level remains very poor. Functional Status: Reports: Urinating - Review of Systems General: Reports: Weakness, Fatigue. Denies: Fever, Chills Pulmonary: Reports: Shortness of Breath, Cough, Sputum. Denies: Pleuritic Chest Pain, Hemoptysis, Wheezing Cardiovascular: Reports: Dyspnea on Exertion. Denies: Chest Pain, Palpitations, Orthopnea, PND, Edema, Lightheadedness Gastrointestinal: Reports: No Symptoms Genitourinary: Reports: No Symptoms - Patient Data Vitals - Most Recent: Last Vital Signs Temp 97.3 F 03/25/21 10:51 Pulse 69 03/25/21 10:51 Resp 18 03/25/21 10:51 BP 120/64 03/25/21 10:51 Pulse Ox 93 L 03/25/21 10:51 Weight - Most Recent: 154 lb I&O - Last 24 Hours: Intake & Output 03/24/21 03/25/21 03/25/21 22:59 06:59 14:59 Intake Total 600 Balance 600 Tate Results Last 24 Hours: Microbiology 03/19/21 12:35 Aerobic Blood Culture - Final Blood - Venous NO GROWTH AFTER 5 DAYS Anaerobic Blood Culture - Final NO GROWTH AFTER 5 DAYS 03/19/21 12:45 Aerobic Blood Culture - Final Blood - Venous - Lab Draw NO GROWTH AFTER 5 DAYS Anaerobic Blood Culture - Final NO GROWTH AFTER 5 DAYS Med Orders - Current: Current Medications Acetaminophen (Acetaminophen 325 Mg Tab) 650 mg PO Q4H PRN PRN Reason: Pain (Mild 1-3)/fever Last Admin: 03/24/21 12:52 Dose: 650 mg Documented by: Aspirin (Aspirin 81 Mg Tab.Chew) 81 mg PO DAILY [facility] Last Admin: 03/25/21 08:00 Dose: 81 mg Documented by: Baricitinib (Baricitinib 2 Mg Tab) 2 mg PO Q24H [facility] Stop: 03/30/21 14:31 Last Admin: 03/24/21 14:12 Dose: 2 mg Documented by: Benzonatate (Benzonatate 100 Mg Cap) 100 mg PO TID PRN PRN Reason: Cough Bisacodyl (Bisacodyl 10 Mg Supp) 10 mg RECTAL DAILY PRN PRN Reason: Constipation Calcium Carbonate/Glycine (Calcium Carbonate 500 Mg Tab.Chew) 1,000 mg PO Q2H PRN PRN Reason: Indigestion Last Admin: 03/22/21 22:05 Dose: 1,000 mg Documented by: Dexamethasone (Dexamethasone 4 Mg/Ml Sdv) 6 mg IVPUSH Q24H [facility] Last Admin: 03/24/21 16:28 Dose: 6 mg Documented by: Diphenhydramine HCl (Diphenhydramine 25 Mg Cap) 25 mg PO Q4H PRN PRN Reason: Itching Last Admin: 03/23/21 04:00 Dose: 25 mg Documented by: Docusate Sodium (Docusate Sodium 100 Mg Cap) 100 mg PO Q12H PRN PRN Reason: Constipation Enoxaparin Sodium (Enoxaparin 40 Mg/0.4 Ml Syringe) 40 mg SUBCUT Q24H [facility] Last Admin: 03/24/21 17:21 Dose: 40 mg Documented by: Guaifenesin/Dextromethorphan (Guaifenesin/Dextromethorphan 100-10 Mg/5 Ml Soln 10 Ml Cup) 10 ml PO Q4H PRN PRN Reason: Cough Ceftriaxone Sodium 1 gm/ (Sodium Chloride) 50 mls @ 100 mls/hr IV Q24H [facility] Last Admin: 03/24/21 15:20 Dose: 100 mls/hr Documented by: Levothyroxine Sodium (Levothyroxine 100 Mcg Tab) 100 mcg PO ACBREAKFAST [facility] Last Admin: 03/25/21 08:00 Dose: 100 mcg Documented by: Lorazepam (Lorazepam 2 Mg/Ml Sdv) 0.5 mg IVPUSH Q4H PRN PRN Reason: Nausea/Vomiting Last Admin: 03/25/21 12:50 Dose: 0.5 mg Documented by: Lorazepam (Lorazepam 0.5 Mg Tab) 0.5 mg PO Q4H PRN PRN Reason: Anxiety Magnesium Hydroxide (Magnesium Hydroxide 400 Mg/5 Ml Susp 30 Ml Cup) 30 ml PO Q12H PRN PRN Reason: Constipation Melatonin (Melatonin 3 Mg Tab) 9 mg PO BEDTIME PRN PRN Reason: sleep Last Admin: 03/23/21 22:17 Dose: 9 mg Documented by: Ondansetron HCl (Ondansetron 4 Mg/2 Ml Sdv) 4 mg IV Q6H PRN PRN Reason: Nausea/Vomiting Ondansetron HCl (Ondansetron 4 Mg Tab.Dis) 4 mg PO Q6H PRN PRN Reason: Nausea able to take PO Last Admin: 03/24/21 12:42 Dose: 4 mg Documented by: Pantoprazole Sodium (Pantoprazole 40 Mg Tab.Cr) 40 mg PO ACBREAKFAST [facility] Last Admin: 03/25/21 07:59 Dose: 40 mg Documented by: Senna/Docusate Sodium (Docusate Sodium/Sennosides 50-8.6 Mg Tab) 1 tab PO BID PRN PRN Reason: Constipation Sodium Chloride (Sodium Chloride 0.65% Nasal [place] 45 Ml Bottle) 0 ml MASTER Q2H PRN PRN Reason: Dryness Tramadol HCl (Tramadol 50 Mg Tab) 50 mg PO Q8H PRN PRN Reason: Pain (moderate 4-6) Last Admin: 03/24/21 17:51 Dose: 50 mg Documented by: Discontinued Medications Dexamethasone (Dexamethasone 4 Mg/Ml Sdv) 6 mg IVPUSH ONETIME ONE Stop: 03/19/21 16:36 Last Admin: 03/19/21 18:15 Dose: 6 mg Documented by: Enoxaparin Sodium (Enoxaparin 30 Mg/0.3 Ml Syringe) 30 mg SUBCUT Q24H [facility] Last Admin: 03/23/21 17:36 Dose: 30 mg Documented by: Remdesivir 200 mg/ Sodium (Chloride) 250 mls @ 250 mls/hr IV ONETIME ONE Stop: 03/19/21 14:59 Last Admin: 03/19/21 14:06 Dose: 250 mls/hr Documented by: Remdesivir 100 mg/ Sodium (Chloride) 100 mls @ 100 mls/hr IV Q24H [facility] Stop: 03/23/21 14:59 Last Admin: 03/23/21 14:06 Dose: 100 mls/hr Documented by: Doxycycline Hyclate 100 mg/ (Sodium Chloride) 100 mls @ 100 mls/hr IV Q12H [facility] Last Admin: 03/25/21 02:30 Dose: 100 mls/hr Documented by: - Exam Quality Assessment: Supplemental Oxygen, DVT Prophylaxis General: Alert, Oriented, Cooperative, Moderate Distress Lungs: Decreased Breath Sounds, Crackles. No: Rales, Rhonchi, Wheezing Cardiovascular: Regular Rate, Regular Rhythm, No Murmurs GI/Abdominal Exam: Soft, Non-Tender, No Organomegaly, No Distention Extremities: Non-Tender, No Pedal Edema - Patient Data Result Diagrams: 03/22/21 06:05 03/24/21 05:00 Tate Results Last 24 hrs: Microbiology 03/19/21 12:35 Aerobic Blood Culture - Final Blood - Venous NO GROWTH AFTER 5 DAYS Anaerobic Blood Culture - Final NO GROWTH AFTER 5 DAYS 03/19/21 12:45 Aerobic Blood Culture - Final Blood - Venous - Lab Draw NO GROWTH AFTER 5 DAYS Anaerobic Blood Culture - Final NO GROWTH AFTER 5 DAYS Sepsis Event Note - Evaluation Sepsis Screening Result: No Definite Risk - Focused Exam Vital Signs: Vital Signs Temp Pulse Resp BP BP Pulse Ox 03/25/21 10:51 97.3 F 69 18 120/64 93 L 03/25/21 07:00 97.6 F 60 18 113/62 89 L 03/25/21 03:44 97.1 F 58 L 16 108/49 L 96 - Problem List Review Problem List Initiated/Reviewed/Updated: Yes - My Orders Last 24 Hours: My Active Orders 03/25/21 10:09 Docusate Sodium [Colace] 100 mg PO Q12H PRN bisacodyL [Dulcolax] 10 mg RECTAL DAILY PRN 03/25/21 12:53 LORazepam [Ativan] 0.5 mg PO Q4H PRN 03/26/21 05:00 CBC WITH AUTO DIFF [HEME] Timed COMPREHENSIVE METABOLIC PN,CMP [CHEM] Timed 03/26/21 05:11 CRP [C-REACTIVE PROTEIN] [CHEM] AM D Dimer [D-DIMER QUANTITATIVE] [COAG] AM - Plan Plan:: ASSESSMENT AND PLAN COVID-19 pneumonia-complicated by acute respiratory failure with hypoxia. Symptom onset about 03/12. Stable with support from heated/high flow nasal cannula and this is slowly being weaned. She remains fairly weak and anxious. Persistent poor appetite and generalized weakness. -Lorazepam 0.5 mg p.o. every 4 hours as needed for anxiety -Remdesivir x5 days, completed -Dexamethasone 6 mg daily (day 7) -Baricitinib 2 mg daily (day 5) -Empiric antibiotics with doxycycline and ceftriaxone (day 5) -Enoxaparin every 24 hours -Symptomatic management of cough and fever -Isolation precautions -D-dimer and CRP every 2 days Acute kidney injury-secondary to dehydration and poor intake. Creatinine has improved and remained stable. -Encourage oral intake Hypothyroidism- -Continue home supplement Maintenance issues - -DVT prophylaxis-enoxaparin -GI prophylaxis-PPI -Nutrition-regular -Ramsey catheter-not indicated CODE STATUS -DO NOT RESUSCITATE but intubation is okay Disposition -I anticipate discharge home after the hospital stay Primary care physician -Dr Khanh Villarreal
[2021-03-25] MEDS: Docusate Sodium 100 MG Cap PO PRN (14:25)
[2021-03-25] MEDS: traMADol 50 MG Tab PO PRN ×2 (14:25→22:03)
[2021-03-25] MEDS: Dexamethasone 4 MG/ML SDV IVPUSH SCH (16:04)
[2021-03-25] MEDS: cefTRIAXone 1 GM in Sodium Chloride 0.9% 50 ML IV SCH (16:04)
[2021-03-25] MEDS: Enoxaparin 40 MG/0.4 ML Syringe SUBCUT SCH (17:12)
[2021-03-26] MEDS: Pantoprazole 40 MG Tab.CR PO SCH (08:48)
[2021-03-26] MEDS: Levothyroxine 100 MCG Tab PO SCH (08:48)
[2021-03-26] MEDS: Aspirin 81 MG Tab.Chew PO SCH (08:48)
[2021-03-26] MEDS: cefTRIAXone 1 GM in Sodium Chloride 0.9% 50 ML IV SCH (15:12)
[2021-03-26] MEDS: Dexamethasone 4 MG/ML SDV IVPUSH SCH (16:04)
--- NOTE | 2021-03-26 17:24 | PCM.PN ---
- General Info Date of Service: 03/26/21 Subjective Update: Ms. Espinoza wire high flow humidified oxygen over the last 24 hours. She reports feeling somewhat better today with less shortness of breath and improved strengt h. Appetite remains fairly poor with minimal intake. Functional Status: Reports: Urinating. Denies: Tolerating Diet, Ambulating - Review of Systems General: Reports: Weakness, Fatigue. Denies: Fever, Chills Pulmonary: Reports: Shortness of Breath, Cough. Denies: Pleuritic Chest Pain, Sputum, Hemoptysis, Wheezing Cardiovascular: Reports: Dyspnea on Exertion. Denies: Chest Pain, Palpitations, Orthopnea, PND, Edema, Lightheadedness Gastrointestinal: Reports: No Symptoms Genitourinary: Reports: No Symptoms - Patient Data Vitals - Most Recent: Last Vital Signs Temp 97.1 F 03/26/21 14:43 Pulse 67 03/26/21 14:43 Resp 18 03/26/21 14:43 BP 119/50 L 03/26/21 14:43 Pulse Ox 94 L 03/26/21 14:43 Weight - Most Recent: 154 lb I&O - Last 24 Hours: Intake & Output 03/26/21 03/26/21 03/26/21 06:59 14:59 22:59 Intake Total 50 Balance 50 Lab Results Last 24 Hours: Laboratory Results - last 24 hr 03/26/21 03/26/21 03/26/21 Range/Units 04:15 04:15 04:15 WBC 10.6 (4.5-11.0) K/uL RBC 4.38 (3.30-5.50) M/uL Hgb 13.5 (12.0-15.0) g/dL Hct 39.2 (36.0-48.0) % MCV 90 (80-98) fL MCH 31 (27-31) pg MCHC 34 (32-36) % Plt Count 278 (150-400) K/uL Neut % (Auto) 89.7 H (36-66) % Lymph % (Auto) 6.5 L (24-44) % [place] % (Auto) 3.5 (2-6) % Eos % (Auto) 0.1 L (2-4) % Baso % (Auto) 0.2 (0-1) % D-Dimer, Quantitative 6243.88 H (0.0-500.0) ng/mL Sodium 134 L (140-148) mmol/L Potassium 4.6 (3.6-5.2) mmol/L Chloride 101 (100-108) mmol/L Carbon Dioxide 27 (21-32) mmol/L Anion Gap 10.6 (5.0-14.0) mmol/L BUN 26 H (7-18) mg/dL Creatinine 0.9 (0.6-1.0) mg/dL Est Cr Clr Drug Dosing 39.46 mL/min Estimated GFR (MDRD) 60 (>60) Glucose 159 H (74-106) mg/dL Calcium 8.4 L (8.5-10.1) mg/dL Total Bilirubin 0.6 (0.2-1.0) mg/dL AST 29 (15-37) U/L ALT 27 (12-78) U/L Alkaline Phosphatase 46 (46-116) U/L C-Reactive Protein (0.0-0.3) mg/dL Total Protein 6.1 L (6.4-8.2) g/dL Albumin 2.3 L (3.4-5.0) g/dL Globulin 3.8 H (2.3-3.5) g/dL Albumin/Globulin Ratio 0.6 L (1.2-2.2) 03/26/21 Range/Units 04:15 WBC (4.5-11.0) K/uL RBC (3.30-5.50) M/uL Hgb (12.0-15.0) g/dL Hct (36.0-48.0) % MCV (80-98) fL MCH (27-31) pg MCHC (32-36) % Plt Count (150-400) K/uL Neut % (Auto) (36-66) % Lymph % (Auto) (24-44) % [place] % (Auto) (2-6) % Eos % (Auto) (2-4) % Baso % (Auto) (0-1) % D-Dimer, Quantitative (0.0-500.0) ng/mL Sodium (140-148) mmol/L Potassium (3.6-5.2) mmol/L Chloride (100-108) mmol/L Carbon Dioxide (21-32) mmol/L Anion Gap (5.0-14.0) mmol/L BUN (7-18) mg/dL Creatinine (0.6-1.0) mg/dL Est Cr Clr Drug Dosing mL/min Estimated GFR (MDRD) (>60) Glucose (74-106) mg/dL Calcium (8.5-10.1) mg/dL Total Bilirubin (0.2-1.0) mg/dL AST (15-37) U/L ALT (12-78) U/L Alkaline Phosphatase (46-116) U/L C-Reactive Protein 4.59 H (0.0-0.3) mg/dL Total Protein (6.4-8.2) g/dL Albumin (3.4-5.0) g/dL Globulin (2.3-3.5) g/dL Albumin/Globulin Ratio (1.2-2.2) Med Orders - Current: Current Medications Acetaminophen (Acetaminophen 325 Mg Tab) 650 mg PO Q4H PRN PRN Reason: Pain (Mild 1-3)/fever Last Admin: 03/24/21 12:52 Dose: 650 mg Documented by: Aspirin (Aspirin 81 Mg Tab.Chew) 81 mg PO DAILY [facility] Last Admin: 03/26/21 08:48 Dose: 81 mg Documented by: Baricitinib (Baricitinib 2 Mg Tab) 2 mg PO Q24H [facility] Stop: 03/30/21 14:31 Last Admin: 03/26/21 15:12 Dose: 2 mg Documented by: Benzonatate (Benzonatate 100 Mg Cap) 100 mg PO TID PRN PRN Reason: Cough Bisacodyl (Bisacodyl 10 Mg Supp) 10 mg RECTAL DAILY PRN PRN Reason: Constipation Calcium Carbonate/Glycine (Calcium Carbonate 500 Mg Tab.Chew) 1,000 mg PO Q2H PRN PRN Reason: Indigestion Last Admin: 03/22/21 22:05 Dose: 1,000 mg Documented by: Dexamethasone (Dexamethasone 4 Mg/Ml Sdv) 6 mg IVPUSH Q24H [facility] Last Admin: 03/26/21 16:04 Dose: 6 mg Documented by: Diphenhydramine HCl (Diphenhydramine 25 Mg Cap) 25 mg PO Q4H PRN PRN Reason: Itching Last Admin: 03/23/21 04:00 Dose: 25 mg Documented by: Docusate Sodium (Docusate Sodium 100 Mg Cap) 100 mg PO Q12H PRN PRN Reason: Constipation Last Admin: 03/25/21 14:25 Dose: 100 mg Documented by: Enoxaparin Sodium (Enoxaparin 40 Mg/0.4 Ml Syringe) 40 mg SUBCUT Q24H [facility] Last Admin: 03/25/21 17:12 Dose: 40 mg Documented by: Guaifenesin/Dextromethorphan (Guaifenesin/Dextromethorphan 100-10 Mg/5 Ml Soln 10 Ml Cup) 10 ml PO Q4H PRN PRN Reason: Cough Ceftriaxone Sodium 1 gm/ (Sodium Chloride) 50 mls @ 100 mls/hr IV Q24H [facility] Last Admin: 03/26/21 15:12 Dose: 100 mls/hr Documented by: Levothyroxine Sodium (Levothyroxine 100 Mcg Tab) 100 mcg PO ACBREAKFAST [facility] Last Admin: 03/26/21 08:48 Dose: 100 mcg Documented by: Lorazepam (Lorazepam 2 Mg/Ml Sdv) 0.5 mg IVPUSH Q4H PRN PRN Reason: Nausea/Vomiting Last Admin: 03/25/21 12:50 Dose: 0.5 mg Documented by: Lorazepam (Lorazepam 0.5 Mg Tab) 0.5 mg PO Q4H PRN PRN Reason: Anxiety Magnesium Hydroxide (Magnesium Hydroxide 400 Mg/5 Ml Susp 30 Ml Cup) 30 ml PO Q12H PRN PRN Reason: Constipation Melatonin (Melatonin 3 Mg Tab) 9 mg PO BEDTIME PRN PRN Reason: sleep Last Admin: 03/23/21 22:17 Dose: 9 mg Documented by: Ondansetron HCl (Ondansetron 4 Mg/2 Ml Sdv) 4 mg IV Q6H PRN PRN Reason: Nausea/Vomiting Ondansetron HCl (Ondansetron 4 Mg Tab.Dis) 4 mg PO Q6H PRN PRN Reason: Nausea able to take PO Last Admin: 03/24/21 12:42 Dose: 4 mg Documented by: Pantoprazole Sodium (Pantoprazole 40 Mg Tab.Cr) 40 mg PO ACBREAKFAST [facility] Last Admin: 03/26/21 08:48 Dose: 40 mg Documented by: Senna/Docusate Sodium (Docusate Sodium/Sennosides 50-8.6 Mg Tab) 1 tab PO BID PRN PRN Reason: Constipation Last Admin: 03/26/21 08:47 Dose: 1 tab Documented by: Sodium Chloride (Sodium Chloride 0.65% Nasal [place] 45 Ml Bottle) 0 ml MASTER Q2H PRN PRN Reason: Dryness Tramadol HCl (Tramadol 50 Mg Tab) 50 mg PO Q8H PRN PRN Reason: Pain (moderate 4-6) Last Admin: 03/25/21 22:03 Dose: 50 mg Documented by: Discontinued Medications Dexamethasone (Dexamethasone 4 Mg/Ml Sdv) 6 mg IVPUSH ONETIME ONE Stop: 03/19/21 16:36 Last Admin: 03/19/21 18:15 Dose: 6 mg Documented by: Enoxaparin Sodium (Enoxaparin 30 Mg/0.3 Ml Syringe) 30 mg SUBCUT Q24H [facility] Last Admin: 03/23/21 17:36 Dose: 30 mg Documented by: Remdesivir 200 mg/ Sodium (Chloride) 250 mls @ 250 mls/hr IV ONETIME ONE Stop: 03/19/21 14:59 Last Admin: 03/19/21 14:06 Dose: 250 mls/hr Documented by: Remdesivir 100 mg/ Sodium (Chloride) 100 mls @ 100 mls/hr IV Q24H [facility] Stop: 03/23/21 14:59 Last Admin: 03/23/21 14:06 Dose: 100 mls/hr Documented by: Doxycycline Hyclate 100 mg/ (Sodium Chloride) 100 mls @ 100 mls/hr IV Q12H [facility] Last Admin: 03/25/21 02:30 Dose: 100 mls/hr Documented by: - Exam Quality Assessment: Supplemental Oxygen, DVT Prophylaxis General: Alert, Oriented, Cooperative, Moderate Distress Lungs: Crackles. No: Rales, Rhonchi, Wheezing Cardiovascular: Regular Rate, Regular Rhythm, No Murmurs GI/Abdominal Exam: Soft, Non-Tender, No Organomegaly, No Distention Extremities: Non-Tender, No Pedal Edema - Patient Data Lab Results Last 24 hrs: Laboratory Results - last 24 hr 03/26/21 03/26/21 03/26/21 Range/Units 04:15 04:15 04:15 WBC 10.6 (4.5-11.0) K/uL RBC 4.38 (3.30-5.50) M/uL Hgb 13.5 (12.0-15.0) g/dL Hct 39.2 (36.0-48.0) % MCV 90 (80-98) fL MCH 31 (27-31) pg MCHC 34 (32-36) % Plt Count 278 (150-400) K/uL Neut % (Auto) 89.7 H (36-66) % Lymph % (Auto) 6.5 L (24-44) % [place] % (Auto) 3.5 (2-6) % Eos % (Auto) 0.1 L (2-4) % Baso % (Auto) 0.2 (0-1) % D-Dimer, Quantitative 6243.88 H (0.0-500.0) ng/mL Sodium 134 L (140-148) mmol/L Potassium 4.6 (3.6-5.2) mmol/L Chloride 101 (100-108) mmol/L Carbon Dioxide 27 (21-32) mmol/L Anion Gap 10.6 (5.0-14.0) mmol/L BUN 26 H (7-18) mg/dL Creatinine 0.9 (0.6-1.0) mg/dL Est Cr Clr Drug Dosing 39.46 mL/min Estimated GFR (MDRD) 60 (>60) Glucose 159 H (74-106) mg/dL Calcium 8.4 L (8.5-10.1) mg/dL Total Bilirubin 0.6 (0.2-1.0) mg/dL AST 29 (15-37) U/L ALT 27 (12-78) U/L Alkaline Phosphatase 46 (46-116) U/L C-Reactive Protein (0.0-0.3) mg/dL Total Protein 6.1 L (6.4-8.2) g/dL Albumin 2.3 L (3.4-5.0) g/dL Globulin 3.8 H (2.3-3.5) g/dL Albumin/Globulin Ratio 0.6 L (1.2-2.2) 03/26/21 Range/Units 04:15 WBC (4.5-11.0) K/uL RBC (3.30-5.50) M/uL Hgb (12.0-15.0) g/dL Hct (36.0-48.0) % MCV (80-98) fL MCH (27-31) pg MCHC (32-36) % Plt Count (150-400) K/uL Neut % (Auto) (36-66) % Lymph % (Auto) (24-44) % [place] % (Auto) (2-6) % Eos % (Auto) (2-4) % Baso % (Auto) (0-1) % D-Dimer, Quantitative (0.0-500.0) ng/mL Sodium (140-148) mmol/L Potassium (3.6-5.2) mmol/L Chloride (100-108) mmol/L Carbon Dioxide (21-32) mmol/L Anion Gap (5.0-14.0) mmol/L BUN (7-18) mg/dL Creatinine (0.6-1.0) mg/dL Est Cr Clr Drug Dosing mL/min Estimated GFR (MDRD) (>60) Glucose (74-106) mg/dL Calcium (8.5-10.1) mg/dL Total Bilirubin (0.2-1.0) mg/dL AST (15-37) U/L ALT (12-78) U/L Alkaline Phosphatase (46-116) U/L C-Reactive Protein 4.59 H (0.0-0.3) mg/dL Total Protein (6.4-8.2) g/dL Albumin (3.4-5.0) g/dL Globulin (2.3-3.5) g/dL Albumin/Globulin Ratio (1.2-2.2) Result Diagrams: 03/26/21 04:15 03/26/21 04:15 Sepsis Event Note - Evaluation Sepsis Screening Result: No Definite Risk - Focused Exam Vital Signs: Vital Signs Temp Pulse Resp BP BP Pulse Ox 03/26/21 14:43 97.1 F 67 18 119/50 L 94 L 03/26/21 11:00 98.7 F 62 16 116/54 L 85 L 03/26/21 07:00 97.2 F 63 16 113/49 L 92 L - Problem List Review Problem List Initiated/Reviewed/Updated: Yes - Plan Plan:: ASSESSMENT AND PLAN COVID-19 pneumonia-complicated by acute respiratory failure with hypoxia. Symptom onset about 03/12. Stable with support from heated/high flow nasal cannula. Modest improvement in symptoms over the last 24 hours, she feels somewhat stronger and less short of breath. -Lorazepam 0.5 mg p.o. every 4 hours as needed for anxiety -Remdesivir x5 days, completed -Dexamethasone 6 mg daily (day 8) -Baricitinib 2 mg daily (day 6) -Empiric antibiotics with doxycycline and ceftriaxone (day 6) -Enoxaparin every 24 hours -Symptomatic management of cough and fever -Isolation precautions -D-dimer and CRP every 2 days Acute kidney injury-secondary to dehydration and poor intake. Creatinine has improved and remained stable. -Encourage oral intake Hypothyroidism- -Continue home supplement Maintenance issues - -DVT prophylaxis-enoxaparin -GI prophylaxis-PPI -Nutrition-regular -[place] catheter-not indicated CODE STATUS -DO NOT RESUSCITATE but intubation is okay Disposition -I anticipate discharge home after the hospital stay Primary care physician -Dr Khanh Villarreal
[2021-03-26] MEDS: Enoxaparin 40 MG/0.4 ML Syringe SUBCUT SCH (17:27)
[2021-03-26] MEDS: Acetaminophen 325 MG Tab PO PRN (19:56)
[2021-03-26] MEDS: traMADol 50 MG Tab PO PRN (22:22)
[2021-03-27] MEDS: Aspirin 81 MG Tab.Chew PO SCH (09:20)
[2021-03-27] MEDS: Pantoprazole 40 MG Tab.CR PO SCH (09:20)
[2021-03-27] MEDS: Levothyroxine 100 MCG Tab PO SCH (09:20)
[2021-03-27] MEDS: Acetaminophen 325 MG Tab PO PRN ×2 (12:08→20:06)
[2021-03-27] MEDS: traMADol 50 MG Tab PO PRN ×2 (12:08→20:07)
[2021-03-27] MEDS: Magnesium Hydroxide 400 MG/5 ML Susp 30 ML Cup PO PRN (13:49)
--- NOTE | 2021-03-27 16:28 | PCM.PN ---
- General Info Date of Service: 03/27/21 Subjective Update: Ms. Espinoza continues to require high flow humidified oxygen. She is not feeling as well today, more weak and nauseated. She desaturates and gets very short of breath with minimal exertion. Functional Status: Reports: Urinating. Denies: Tolerating Diet, Ambulating - Review of Systems General: Reports: Weakness, Fatigue. Denies: Fever, Chills Pulmonary: Reports: Shortness of Breath, Cough. Denies: Pleuritic Chest Pain, Sputum, Hemoptysis, Wheezing Cardiovascular: Reports: Dyspnea on Exertion. Denies: Chest Pain, Palpitations, Orthopnea, PND, Edema, Lightheadedness Gastrointestinal: Reports: No Symptoms Genitourinary: Reports: No Symptoms - Patient Data Vitals - Most Recent: Last Vital Signs Temp 97.0 F 03/27/21 11:13 Pulse 73 03/27/21 11:13 Resp 20 03/27/21 11:13 BP 119/48 L 03/27/21 11:13 Pulse Ox 90 L 03/27/21 12:17 Weight - Most Recent: 154 lb I&O - Last 24 Hours: Intake & Output 03/27/21 03/27/21 03/27/21 06:59 14:59 22:59 Intake Total 100 100 Output Total 250 125 Balance -150 -25 Med Orders - Current: Current Medications Acetaminophen (Acetaminophen 325 Mg Tab) 650 mg PO Q4H PRN PRN Reason: Pain (Mild 1-3)/fever Last Admin: 03/27/21 12:08 Dose: 650 mg Documented by: Aspirin (Aspirin 81 Mg Tab.Chew) 81 mg PO DAILY [facility] Last Admin: 03/27/21 09:20 Dose: 81 mg Documented by: Baricitinib (Baricitinib 2 Mg Tab) 2 mg PO Q24H [facility] Stop: 03/30/21 14:31 Last Admin: 03/27/21 13:42 Dose: 2 mg Documented by: Benzonatate (Benzonatate 100 Mg Cap) 100 mg PO TID PRN PRN Reason: Cough Bisacodyl (Bisacodyl 10 Mg Supp) 10 mg RECTAL DAILY PRN PRN Reason: Constipation Last Admin: 03/27/21 13:48 Dose: 10 mg Documented by: Calcium Carbonate/Glycine (Calcium Carbonate 500 Mg Tab.Chew) 1,000 mg PO Q2H PRN PRN Reason: Indigestion Last Admin: 03/22/21 22:05 Dose: 1,000 mg Documented by: Dexamethasone (Dexamethasone 4 Mg/Ml Sdv) 6 mg IVPUSH Q24H [facility] Last Admin: 03/26/21 16:04 Dose: 6 mg Documented by: Diphenhydramine HCl (Diphenhydramine 25 Mg Cap) 25 mg PO Q4H PRN PRN Reason: Itching Last Admin: 03/23/21 04:00 Dose: 25 mg Documented by: Docusate Sodium (Docusate Sodium 100 Mg Cap) 100 mg PO Q12H PRN PRN Reason: Constipation Last Admin: 03/25/21 14:25 Dose: 100 mg Documented by: Enoxaparin Sodium (Enoxaparin 40 Mg/0.4 Ml Syringe) 40 mg SUBCUT Q24H [facility] Last Admin: 03/26/21 17:27 Dose: 40 mg Documented by: Guaifenesin/Dextromethorphan (Guaifenesin/Dextromethorphan 100-10 Mg/5 Ml Soln 10 Ml Cup) 10 ml PO Q4H PRN PRN Reason: Cough Ceftriaxone Sodium 1 gm/ (Sodium Chloride) 50 mls @ 100 mls/hr IV Q24H [facility] Last Admin: 03/26/21 15:12 Dose: 100 mls/hr Documented by: Levothyroxine Sodium (Levothyroxine 100 Mcg Tab) 100 mcg PO ACBREAKFAST [facility] Last Admin: 03/27/21 09:20 Dose: 100 mcg Documented by: Lorazepam (Lorazepam 2 Mg/Ml Sdv) 0.5 mg IVPUSH Q4H PRN PRN Reason: Nausea/Vomiting Last Admin: 03/25/21 12:50 Dose: 0.5 mg Documented by: Lorazepam (Lorazepam 0.5 Mg Tab) 0.5 mg PO Q4H PRN PRN Reason: Anxiety Magnesium Hydroxide (Magnesium Hydroxide 400 Mg/5 Ml Susp 30 Ml Cup) 30 ml PO Q12H PRN PRN Reason: Constipation Last Admin: 03/27/21 13:49 Dose: 30 ml Documented by: Melatonin (Melatonin 3 Mg Tab) 9 mg PO BEDTIME PRN PRN Reason: sleep Last Admin: 03/23/21 22:17 Dose: 9 mg Documented by: Ondansetron HCl (Ondansetron 4 Mg/2 Ml Sdv) 4 mg IV Q6H PRN PRN Reason: Nausea/Vomiting Ondansetron HCl (Ondansetron 4 Mg Tab.Dis) 4 mg PO Q6H PRN PRN Reason: Nausea able to take PO Last Admin: 03/24/21 12:42 Dose: 4 mg Documented by: Pantoprazole Sodium (Pantoprazole 40 Mg Tab.Cr) 40 mg PO ACBREAKFAST [facility] Last Admin: 03/27/21 09:20 Dose: 40 mg Documented by: Senna/Docusate Sodium (Docusate Sodium/Sennosides 50-8.6 Mg Tab) 1 tab PO BID PRN PRN Reason: Constipation Last Admin: 03/27/21 09:20 Dose: 1 tab Documented by: Sodium Chloride (Sodium Chloride 0.65% Nasal [place] 45 Ml Bottle) 0 ml MASTER Q2H PRN PRN Reason: Dryness Tramadol HCl (Tramadol 50 Mg Tab) 50 mg PO Q8H PRN PRN Reason: Pain (moderate 4-6) Last Admin: 03/27/21 12:08 Dose: 50 mg Documented by: Discontinued Medications Dexamethasone (Dexamethasone 4 Mg/Ml Sdv) 6 mg IVPUSH ONETIME ONE Stop: 03/19/21 16:36 Last Admin: 03/19/21 18:15 Dose: 6 mg Documented by: Enoxaparin Sodium (Enoxaparin 30 Mg/0.3 Ml Syringe) 30 mg SUBCUT Q24H [facility] Last Admin: 03/23/21 17:36 Dose: 30 mg Documented by: Remdesivir 200 mg/ Sodium (Chloride) 250 mls @ 250 mls/hr IV ONETIME ONE Stop: 03/19/21 14:59 Last Admin: 03/19/21 14:06 Dose: 250 mls/hr Documented by: Remdesivir 100 mg/ Sodium (Chloride) 100 mls @ 100 mls/hr IV Q24H [facility] Stop: 03/23/21 14:59 Last Admin: 03/23/21 14:06 Dose: 100 mls/hr Documented by: Doxycycline Hyclate 100 mg/ (Sodium Chloride) 100 mls @ 100 mls/hr IV Q12H [facility] Last Admin: 03/25/21 02:30 Dose: 100 mls/hr Documented by: - Exam Quality Assessment: Supplemental Oxygen, DVT Prophylaxis General: Alert, Oriented, Cooperative, Moderate Distress Lungs: Crackles. No: Rales, Rhonchi, Wheezing Cardiovascular: Regular Rate, Regular Rhythm, No Murmurs GI/Abdominal Exam: Soft, Non-Tender, No Organomegaly, No Distention Extremities: Non-Tender, No Pedal Edema - Patient Data Result Diagrams: 03/26/21 04:15 03/26/21 04:15 Sepsis Event Note - Evaluation Sepsis Screening Result: No Definite Risk - Focused Exam Vital Signs: Vital Signs Temp Pulse Resp BP Pulse Ox 03/27/21 12:17 90 L 03/27/21 11:13 97.0 F 73 20 119/48 L 88 L 03/27/21 09:48 90 L 03/27/21 09:46 85 L 03/27/21 07:36 97.3 F 57 L 103/57 L 94 L - Problem List Review Problem List Initiated/Reviewed/Updated: Yes - My Orders Last 24 Hours: My Active Orders 03/28/21 05:00 CBC WITH AUTO DIFF [HEME] Timed COMPREHENSIVE METABOLIC PN,CMP [CHEM] Timed 03/28/21 05:11 CRP [C-REACTIVE PROTEIN] [CHEM] AM D Dimer [D-DIMER QUANTITATIVE] [COAG] AM - Plan Plan:: ASSESSMENT AND PLAN COVID-19 pneumonia-complicated by acute respiratory failure with hypoxia. Symptom onset about 03/12. Stable with support from heated/high flow nasal cannula. Feels worse today with more shortness of breath and also nausea. -Lorazepam 0.5 mg p.o. every 4 hours as needed for anxiety -Remdesivir x5 days, completed -Dexamethasone 6 mg daily (day 9) -Baricitinib 2 mg daily (day 7) -Empiric antibiotics with doxycycline and ceftriaxone (day 7) -Enoxaparin every 24 hours -Symptomatic management of cough and fever -Isolation precautions -D-dimer and CRP every 2 days Acute kidney injury-secondary to dehydration and poor intake. Creatinine has improved and remained stable. -Encourage oral intake Hypothyroidism- -Continue home supplement Maintenance issues - -DVT prophylaxis-enoxaparin -GI prophylaxis-PPI -Nutrition-regular -[place] catheter-not indicated CODE STATUS -DO NOT RESUSCITATE but intubation is okay Disposition -I anticipate discharge home after the hospital stay Primary care physician -Dr Khanh Villarreal
[2021-03-27] MEDS: Dexamethasone 4 MG/ML SDV IVPUSH SCH (16:49)
[2021-03-27] MEDS: cefTRIAXone 1 GM in Sodium Chloride 0.9% 50 ML IV SCH (16:50)
[2021-03-27] MEDS: Enoxaparin 40 MG/0.4 ML Syringe SUBCUT SCH (17:44)
[2021-03-28] MEDS: Pantoprazole 40 MG Tab.CR PO SCH (07:28)
[2021-03-28] MEDS: Levothyroxine 100 MCG Tab PO SCH (07:28)
[2021-03-28] MEDS: Aspirin 81 MG Tab.Chew PO SCH (09:10)
[2021-03-28] MEDS: Docusate Sodium 100 MG Cap PO PRN (11:14)
[2021-03-28] MEDS: Acetaminophen 325 MG Tab PO PRN (17:32)
[2021-03-28] MEDS: Dexamethasone 4 MG/ML SDV IVPUSH SCH (17:33)
[2021-03-28] MEDS: Enoxaparin 40 MG/0.4 ML Syringe SUBCUT SCH (17:33)
--- NOTE | 2021-03-28 18:02 | PCM.PN ---
- General Info Date of Service: 03/28/21 Subjective Update: Ms. Espinoza feels modestly improved today, with more strength and slightly less this of breath. Over the last 2 days D-dimer and CRP have increased significantly. Oral intake has remained poor and she has been started and encouraged to take liquid supplements. Functional Status: Reports: Urinating. Denies: Tolerating Diet - Review of Systems General: Reports: Weakness, Fatigue, Malaise. Denies: Fever, Chills Pulmonary: Reports: Shortness of Breath, Cough. Denies: Pleuritic Chest Pain, Sputum, Hemoptysis, Wheezing Cardiovascular: Reports: Dyspnea on Exertion. Denies: Chest Pain, Palpitations, Orthopnea, PND, Edema, Lightheadedness Gastrointestinal: Reports: No Symptoms Genitourinary: Reports: No Symptoms - Patient Data Vitals - Most Recent: Last Vital Signs Temp 96.8 F L 03/28/21 14:06 Pulse 65 03/28/21 14:06 Resp 18 03/28/21 14:06 BP 110/57 L 03/28/21 14:06 Pulse Ox 92 L 03/28/21 14:06 Weight - Most Recent: 154 lb I&O - Last 24 Hours: Intake & Output 03/28/21 03/28/21 03/28/21 06:59 14:59 22:59 Intake Total 600 Balance 600 Lab Results Last 24 Hours: Laboratory Results - last 24 hr 03/28/21 03/28/21 03/28/21 Range/Units 05:40 05:40 05:40 WBC 9.8 (4.5-11.0) K/uL RBC 4.36 (3.30-5.50) M/uL Hgb 13.4 (12.0-15.0) g/dL Hct 39.2 (36.0-48.0) % MCV 90 (80-98) fL MCH 31 (27-31) pg MCHC 34 (32-36) % Plt Count 313 (150-400) K/uL Neut % (Auto) 92.4 H (36-66) % Lymph % (Auto) 5.3 L (24-44) % [place] % (Auto) 2.0 (2-6) % Eos % (Auto) 0.1 L (2-4) % Baso % (Auto) 0.2 (0-1) % D-Dimer, Quantitative 15588.87 H (0.0-500.0) ng/mL Sodium 135 L (140-148) mmol/L Potassium 5.4 H (3.6-5.2) mmol/L Chloride 98 L (100-108) mmol/L Carbon Dioxide 29 (21-32) mmol/L Anion Gap 13.4 (5.0-14.0) mmol/L BUN 19 H (7-18) mg/dL Creatinine 0.9 (0.6-1.0) mg/dL Est Cr Clr Drug Dosing 39.46 mL/min Estimated GFR (MDRD) 60 (>60) Glucose 135 H (74-106) mg/dL Calcium 8.7 (8.5-10.1) mg/dL Total Bilirubin 0.4 (0.2-1.0) mg/dL AST 36 (15-37) U/L ALT 26 (12-78) U/L Alkaline Phosphatase 63 (46-116) U/L C-Reactive Protein (0.0-0.3) mg/dL Total Protein 5.8 L (6.4-8.2) g/dL Albumin 2.1 L (3.4-5.0) g/dL Globulin 3.7 H (2.3-3.5) g/dL Albumin/Globulin Ratio 0.6 L (1.2-2.2) 03/28/21 Range/Units 05:40 WBC (4.5-11.0) K/uL RBC (3.30-5.50) M/uL Hgb (12.0-15.0) g/dL Hct (36.0-48.0) % MCV (80-98) fL MCH (27-31) pg MCHC (32-36) % Plt Count (150-400) K/uL Neut % (Auto) (36-66) % Lymph % (Auto) (24-44) % [place] % (Auto) (2-6) % Eos % (Auto) (2-4) % Baso % (Auto) (0-1) % D-Dimer, Quantitative (0.0-500.0) ng/mL Sodium (140-148) mmol/L Potassium (3.6-5.2) mmol/L Chloride (100-108) mmol/L Carbon Dioxide (21-32) mmol/L Anion Gap (5.0-14.0) mmol/L BUN (7-18) mg/dL Creatinine (0.6-1.0) mg/dL Est Cr Clr Drug Dosing mL/min Estimated GFR (MDRD) (>60) Glucose (74-106) mg/dL Calcium (8.5-10.1) mg/dL Total Bilirubin (0.2-1.0) mg/dL AST (15-37) U/L ALT (12-78) U/L Alkaline Phosphatase (46-116) U/L C-Reactive Protein 11.55 H (0.0-0.3) mg/dL Total Protein (6.4-8.2) g/dL Albumin (3.4-5.0) g/dL Globulin (2.3-3.5) g/dL Albumin/Globulin Ratio (1.2-2.2) Med Orders - Current: Current Medications Acetaminophen (Acetaminophen 325 Mg Tab) 650 mg PO Q4H PRN PRN Reason: Pain (Mild 1-3)/fever Last Admin: 03/28/21 17:32 Dose: 650 mg Documented by: Aspirin (Aspirin 81 Mg Tab.Chew) 81 mg PO DAILY [facility] Last Admin: 03/28/21 09:10 Dose: 81 mg Documented by: Baricitinib (Baricitinib 2 Mg Tab) 2 mg PO Q24H [facility] Stop: 03/30/21 14:31 Last Admin: 03/28/21 14:16 Dose: 2 mg Documented by: Benzonatate (Benzonatate 100 Mg Cap) 100 mg PO TID PRN PRN Reason: Cough Bisacodyl (Bisacodyl 10 Mg Supp) 10 mg RECTAL DAILY PRN PRN Reason: Constipation Last Admin: 03/27/21 13:48 Dose: 10 mg Documented by: Calcium Carbonate/Glycine (Calcium Carbonate 500 Mg Tab.Chew) 1,000 mg PO Q2H PRN PRN Reason: Indigestion Last Admin: 03/22/21 22:05 Dose: 1,000 mg Documented by: Dexamethasone (Dexamethasone 4 Mg/Ml Sdv) 6 mg IVPUSH Q24H [facility] Last Admin: 03/28/21 17:33 Dose: 6 mg Documented by: Diphenhydramine HCl (Diphenhydramine 25 Mg Cap) 25 mg PO Q4H PRN PRN Reason: Itching Last Admin: 03/23/21 04:00 Dose: 25 mg Documented by: Docusate Sodium (Docusate Sodium 100 Mg Cap) 100 mg PO Q12H PRN PRN Reason: Constipation Last Admin: 03/28/21 11:14 Dose: 100 mg Documented by: Enoxaparin Sodium (Enoxaparin 40 Mg/0.4 Ml Syringe) 40 mg SUBCUT Q24H [facility] Last Admin: 03/28/21 17:33 Dose: 40 mg Documented by: Guaifenesin/Dextromethorphan (Guaifenesin/Dextromethorphan 100-10 Mg/5 Ml Soln 10 Ml Cup) 10 ml PO Q4H PRN PRN Reason: Cough Levothyroxine Sodium (Levothyroxine 100 Mcg Tab) 100 mcg PO ACBREAKFAST [facility] Last Admin: 03/28/21 07:28 Dose: 100 mcg Documented by: Lorazepam (Lorazepam 2 Mg/Ml Sdv) 0.5 mg IVPUSH Q4H PRN PRN Reason: Nausea/Vomiting Last Admin: 03/25/21 12:50 Dose: 0.5 mg Documented by: Lorazepam (Lorazepam 0.5 Mg Tab) 0.5 mg PO Q4H PRN PRN Reason: Anxiety Magnesium Hydroxide (Magnesium Hydroxide 400 Mg/5 Ml Susp 30 Ml Cup) 30 ml PO Q12H PRN PRN Reason: Constipation Last Admin: 03/27/21 13:49 Dose: 30 ml Documented by: Melatonin (Melatonin 3 Mg Tab) 9 mg PO BEDTIME PRN PRN Reason: sleep Last Admin: 03/23/21 22:17 Dose: 9 mg Documented by: Ondansetron HCl (Ondansetron 4 Mg/2 Ml Sdv) 4 mg IV Q6H PRN PRN Reason: Nausea/Vomiting Ondansetron HCl (Ondansetron 4 Mg Tab.Dis) 4 mg PO Q6H PRN PRN Reason: Nausea able to take PO Last Admin: 03/24/21 12:42 Dose: 4 mg Documented by: Pantoprazole Sodium (Pantoprazole 40 Mg Tab.Cr) 40 mg PO ACBREAKFAST [facility] Last Admin: 03/28/21 07:28 Dose: 40 mg Documented by: Senna/Docusate Sodium (Docusate Sodium/Sennosides 50-8.6 Mg Tab) 1 tab PO BID PRN PRN Reason: Constipation Last Admin: 03/27/21 19:59 Dose: 1 tab Documented by: Sodium Chloride (Sodium Chloride 0.65% Nasal [place] 45 Ml Bottle) 0 ml MASTER Q2H PRN PRN Reason: Dryness Tramadol HCl (Tramadol 50 Mg Tab) 50 mg PO Q8H PRN PRN Reason: Pain (moderate 4-6) Last Admin: 03/27/21 20:07 Dose: 50 mg Documented by: Discontinued Medications Dexamethasone (Dexamethasone 4 Mg/Ml Sdv) 6 mg IVPUSH ONETIME ONE Stop: 03/19/21 16:36 Last Admin: 03/19/21 18:15 Dose: 6 mg Documented by: Enoxaparin Sodium (Enoxaparin 30 Mg/0.3 Ml Syringe) 30 mg SUBCUT Q24H [facility] Last Admin: 03/23/21 17:36 Dose: 30 mg Documented by: Remdesivir 200 mg/ Sodium (Chloride) 250 mls @ 250 mls/hr IV ONETIME ONE Stop: 03/19/21 14:59 Last Admin: 03/19/21 14:06 Dose: 250 mls/hr Documented by: Remdesivir 100 mg/ Sodium (Chloride) 100 mls @ 100 mls/hr IV Q24H [facility] Stop: 03/23/21 14:59 Last Admin: 03/23/21 14:06 Dose: 100 mls/hr Documented by: Doxycycline Hyclate 100 mg/ (Sodium Chloride) 100 mls @ 100 mls/hr IV Q12H [facility] Last Admin: 03/25/21 02:30 Dose: 100 mls/hr Documented by: Ceftriaxone Sodium 1 gm/ (Sodium Chloride) 50 mls @ 100 mls/hr IV Q24H [facility] Stop: 03/28/21 08:00 Last Admin: 03/27/21 16:50 Dose: 100 mls/hr Documented by: - Exam Quality Assessment: Supplemental Oxygen, DVT Prophylaxis General: Alert, Oriented, Cooperative, Moderate Distress Lungs: Decreased Breath Sounds, Crackles. No: Rales, Rhonchi, Wheezing Cardiovascular: Regular Rate, Regular Rhythm, No Murmurs GI/Abdominal Exam: Soft, Non-Tender, No Organomegaly, No Distention Extremities: Non-Tender, No Pedal Edema - Patient Data Lab Results Last 24 hrs: Laboratory Results - last 24 hr 03/28/21 03/28/21 03/28/21 Range/Units 05:40 05:40 05:40 WBC 9.8 (4.5-11.0) K/uL RBC 4.36 (3.30-5.50) M/uL Hgb 13.4 (12.0-15.0) g/dL Hct 39.2 (36.0-48.0) % MCV 90 (80-98) fL MCH 31 (27-31) pg MCHC 34 (32-36) % Plt Count 313 (150-400) K/uL Neut % (Auto) 92.4 H (36-66) % Lymph % (Auto) 5.3 L (24-44) % [place] % (Auto) 2.0 (2-6) % Eos % (Auto) 0.1 L (2-4) % Baso % (Auto) 0.2 (0-1) % D-Dimer, Quantitative 73159.87 H (0.0-500.0) ng/mL Sodium 135 L (140-148) mmol/L Potassium 5.4 H (3.6-5.2) mmol/L Chloride 98 L (100-108) mmol/L Carbon Dioxide 29 (21-32) mmol/L Anion Gap 13.4 (5.0-14.0) mmol/L BUN 19 H (7-18) mg/dL Creatinine 0.9 (0.6-1.0) mg/dL Est Cr Clr Drug Dosing 39.46 mL/min Estimated GFR (MDRD) 60 (>60) Glucose 135 H (74-106) mg/dL Calcium 8.7 (8.5-10.1) mg/dL Total Bilirubin 0.4 (0.2-1.0) mg/dL AST 36 (15-37) U/L ALT 26 (12-78) U/L Alkaline Phosphatase 63 (46-116) U/L C-Reactive Protein (0.0-0.3) mg/dL Total Protein 5.8 L (6.4-8.2) g/dL Albumin 2.1 L (3.4-5.0) g/dL Globulin 3.7 H (2.3-3.5) g/dL Albumin/Globulin Ratio 0.6 L (1.2-2.2) 03/28/21 Range/Units 05:40 WBC (4.5-11.0) K/uL RBC (3.30-5.50) M/uL Hgb (12.0-15.0) g/dL Hct (36.0-48.0) % MCV (80-98) fL MCH (27-31) pg MCHC (32-36) % Plt Count (150-400) K/uL Neut % (Auto) (36-66) % Lymph % (Auto) (24-44) % [place] % (Auto) (2-6) % Eos % (Auto) (2-4) % Baso % (Auto) (0-1) % D-Dimer, Quantitative (0.0-500.0) ng/mL Sodium (140-148) mmol/L Potassium (3.6-5.2) mmol/L Chloride (100-108) mmol/L Carbon Dioxide (21-32) mmol/L Anion Gap (5.0-14.0) mmol/L BUN (7-18) mg/dL Creatinine (0.6-1.0) mg/dL Est Cr Clr Drug Dosing mL/min Estimated GFR (MDRD) (>60) Glucose (74-106) mg/dL Calcium (8.5-10.1) mg/dL Total Bilirubin (0.2-1.0) mg/dL AST (15-37) U/L ALT (12-78) U/L Alkaline Phosphatase (46-116) U/L C-Reactive Protein 11.55 H (0.0-0.3) mg/dL Total Protein (6.4-8.2) g/dL Albumin (3.4-5.0) g/dL Globulin (2.3-3.5) g/dL Albumin/Globulin Ratio (1.2-2.2) Result Diagrams: 03/28/21 05:40 03/28/21 05:40 Sepsis Event Note - Evaluation Sepsis Screening Result: No Definite Risk - Focused Exam Vital Signs: Vital Signs Temp Pulse Resp BP Pulse Ox 03/28/21 14:06 96.8 F L 65 18 110/57 L 92 L 03/28/21 10:33 97.9 F 74 16 113/64 94 L 03/28/21 07:18 98 F 70 18 81/46 L 88 L - Problem List Review Problem List Initiated/Reviewed/Updated: Yes - My Orders Last 24 Hours: My Active Orders 03/28/21 17:57 POTASSIUM,K [CHEM] Stat 03/29/21 05:00 BASIC METABOLIC PANEL,BMP [CHEM] Timed - Plan Plan:: ASSESSMENT AND PLAN COVID-19 pneumonia-complicated by acute respiratory failure with hypoxia. Symptom onset about 03/12. Stable with support from heated/high flow nasal cannula. She feels slightly improved today but continues to require high level of supplemental oxygen to maintain adequate saturations. -Lorazepam 0.5 mg p.o. every 4 hours as needed for anxiety -Remdesivir x5 days, completed -Dexamethasone 6 mg daily (day 10) -Baricitinib 2 mg daily (day 8) -Empiric antibiotics with doxycycline and ceftriaxone completed -Enoxaparin every 24 hours -Symptomatic management of cough and fever -Isolation precautions -D-dimer and CRP every 2 days Acute kidney injury-secondary to dehydration and poor intake. Creatinine has improved and remained stable. -Encourage oral intake Hypothyroidism- -Continue home supplement Maintenance issues - -DVT prophylaxis-enoxaparin -GI prophylaxis-PPI -Nutrition-regular -[place] catheter-not indicated CODE STATUS -DO NOT RESUSCITATE but intubation is okay Disposition -I anticipate discharge home after the hospital stay Primary care physician -Dr Khanh Villarreal
[2021-03-28] MEDS: Ondansetron 4 MG Tab.DIS PO PRN (19:48)
[2021-03-29] MEDS: Pantoprazole 40 MG Tab.CR PO SCH (09:16)
[2021-03-29] MEDS: Aspirin 81 MG Tab.Chew PO SCH (09:16)
[2021-03-29] MEDS: Levothyroxine 100 MCG Tab PO SCH (09:16)
[2021-03-29] MEDS: Acetaminophen 325 MG Tab PO PRN ×2 (09:18→17:01)
--- NOTE | 2021-03-29 14:25 | PCM.PN ---
- General Info Date of Service: 03/29/21 Subjective Update: Ms. Espinoza continues to require very high flow humidified oxygen, otherwise respiratory status has been stable since yesterday. She remains very weak and fatigued, appetite and oral intake modestly improved over the past few days. Functional Status: Reports: Urinating - Review of Systems General: Reports: Weakness, Fatigue. Denies: Fever, Chills Pulmonary: Reports: Shortness of Breath, Cough. Denies: Pleuritic Chest Pain, Sputum, Hemoptysis, Wheezing Cardiovascular: Reports: Dyspnea on Exertion. Denies: Chest Pain, Palpitations, Orthopnea, PND, Edema, Lightheadedness Gastrointestinal: Reports: No Symptoms Genitourinary: Reports: No Symptoms - Patient Data Vitals - Most Recent: Last Vital Signs Temp 97.6 F 03/29/21 10:09 Pulse 74 03/29/21 10:09 Resp 18 03/29/21 10:09 BP 111/51 L 03/29/21 10:09 Pulse Ox 94 L 03/29/21 10:09 Weight - Most Recent: 154 lb I&O - Last 24 Hours: Intake & Output 03/28/21 03/29/21 03/29/21 22:59 06:59 14:59 Intake Total 400 300 Output Total 250 Balance 400 300 -250 Lab Results Last 24 Hours: Laboratory Results - last 24 hr 03/28/21 03/29/21 Range/Units 18:13 05:10 Sodium 131 L (140-148) mmol/L Potassium 4.5 4.7 (3.6-5.2) mmol/L Chloride 97 L (100-108) mmol/L Carbon Dioxide 25 (21-32) mmol/L Anion Gap 13.7 (5.0-14.0) mmol/L BUN 28 H (7-18) mg/dL Creatinine 1.1 H (0.6-1.0) mg/dL Est Cr Clr Drug Dosing 32.29 mL/min Estimated GFR (MDRD) 47 L (>60) Glucose 184 H (74-106) mg/dL Calcium 8.6 (8.5-10.1) mg/dL Med Orders - Current: Current Medications Acetaminophen (Acetaminophen 325 Mg Tab) 650 mg PO Q4H PRN PRN Reason: Pain (Mild 1-3)/fever Last Admin: 03/29/21 09:18 Dose: 650 mg Documented by: Aspirin (Aspirin 81 Mg Tab.Chew) 81 mg PO DAILY [facility] Last Admin: 03/29/21 09:16 Dose: 81 mg Documented by: Baricitinib (Baricitinib 2 Mg Tab) 2 mg PO Q24H [facility] Stop: 03/30/21 14:31 Last Admin: 03/28/21 14:16 Dose: 2 mg Documented by: Benzonatate (Benzonatate 100 Mg Cap) 100 mg PO TID PRN PRN Reason: Cough Bisacodyl (Bisacodyl 10 Mg Supp) 10 mg RECTAL DAILY PRN PRN Reason: Constipation Last Admin: 03/27/21 13:48 Dose: 10 mg Documented by: Calcium Carbonate/Glycine (Calcium Carbonate 500 Mg Tab.Chew) 1,000 mg PO Q2H PRN PRN Reason: Indigestion Last Admin: 03/22/21 22:05 Dose: 1,000 mg Documented by: Dexamethasone (Dexamethasone 4 Mg/Ml Sdv) 6 mg IVPUSH Q24H [facility] Last Admin: 03/28/21 17:33 Dose: 6 mg Documented by: Diphenhydramine HCl (Diphenhydramine 25 Mg Cap) 25 mg PO Q4H PRN PRN Reason: Itching Last Admin: 03/23/21 04:00 Dose: 25 mg Documented by: Docusate Sodium (Docusate Sodium 100 Mg Cap) 100 mg PO Q12H PRN PRN Reason: Constipation Last Admin: 03/28/21 11:14 Dose: 100 mg Documented by: Enoxaparin Sodium (Enoxaparin 40 Mg/0.4 Ml Syringe) 40 mg SUBCUT Q24H [facility] Last Admin: 03/28/21 17:33 Dose: 40 mg Documented by: Guaifenesin/Dextromethorphan (Guaifenesin/Dextromethorphan 100-10 Mg/5 Ml Soln 10 Ml Cup) 10 ml PO Q4H PRN PRN Reason: Cough Levothyroxine Sodium (Levothyroxine 100 Mcg Tab) 100 mcg PO ACBREAKFAST [facility] Last Admin: 03/29/21 09:16 Dose: 100 mcg Documented by: Lorazepam (Lorazepam 2 Mg/Ml Sdv) 0.5 mg IVPUSH Q4H PRN PRN Reason: Nausea/Vomiting Last Admin: 03/25/21 12:50 Dose: 0.5 mg Documented by: Lorazepam (Lorazepam 0.5 Mg Tab) 0.5 mg PO Q4H PRN PRN Reason: Anxiety Magnesium Hydroxide (Magnesium Hydroxide 400 Mg/5 Ml Susp 30 Ml Cup) 30 ml PO Q12H PRN PRN Reason: Constipation Last Admin: 03/27/21 13:49 Dose: 30 ml Documented by: Melatonin (Melatonin 3 Mg Tab) 9 mg PO BEDTIME PRN PRN Reason: sleep Last Admin: 03/23/21 22:17 Dose: 9 mg Documented by: Ondansetron HCl (Ondansetron 4 Mg/2 Ml Sdv) 4 mg IV Q6H PRN PRN Reason: Nausea/Vomiting Ondansetron HCl (Ondansetron 4 Mg Tab.Dis) 4 mg PO Q6H PRN PRN Reason: Nausea able to take PO Last Admin: 03/28/21 19:48 Dose: 4 mg Documented by: Pantoprazole Sodium (Pantoprazole 40 Mg Tab.Cr) 40 mg PO ACBREAKFAST [facility] Last Admin: 03/29/21 09:16 Dose: 40 mg Documented by: Senna/Docusate Sodium (Docusate Sodium/Sennosides 50-8.6 Mg Tab) 1 tab PO BID PRN PRN Reason: Constipation Last Admin: 03/27/21 19:59 Dose: 1 tab Documented by: Sodium Chloride (Sodium Chloride 0.65% Nasal [place] 45 Ml Bottle) 0 ml MASTER Q2H PRN PRN Reason: Dryness Tramadol HCl (Tramadol 50 Mg Tab) 50 mg PO Q8H PRN PRN Reason: Pain (moderate 4-6) Last Admin: 03/27/21 20:07 Dose: 50 mg Documented by: Discontinued Medications Dexamethasone (Dexamethasone 4 Mg/Ml Sdv) 6 mg IVPUSH ONETIME ONE Stop: 03/19/21 16:36 Last Admin: 03/19/21 18:15 Dose: 6 mg Documented by: Enoxaparin Sodium (Enoxaparin 30 Mg/0.3 Ml Syringe) 30 mg SUBCUT Q24H [facility] Last Admin: 03/23/21 17:36 Dose: 30 mg Documented by: Remdesivir 200 mg/ Sodium (Chloride) 250 mls @ 250 mls/hr IV ONETIME ONE Stop: 03/19/21 14:59 Last Admin: 03/19/21 14:06 Dose: 250 mls/hr Documented by: Remdesivir 100 mg/ Sodium (Chloride) 100 mls @ 100 mls/hr IV Q24H [facility] Stop: 03/23/21 14:59 Last Admin: 03/23/21 14:06 Dose: 100 mls/hr Documented by: Doxycycline Hyclate 100 mg/ (Sodium Chloride) 100 mls @ 100 mls/hr IV Q12H [facility] Last Admin: 03/25/21 02:30 Dose: 100 mls/hr Documented by: Ceftriaxone Sodium 1 gm/ (Sodium Chloride) 50 mls @ 100 mls/hr IV Q24H [facility] Stop: 03/28/21 08:00 Last Admin: 03/27/21 16:50 Dose: 100 mls/hr Documented by: - Exam Quality Assessment: Supplemental Oxygen, DVT Prophylaxis General: Oriented, Cooperative, Lethargic Lungs: Decreased Breath Sounds, Crackles. No: Rales, Rhonchi, Wheezing Cardiovascular: Regular Rate, Regular Rhythm, No Murmurs GI/Abdominal Exam: Soft, Non-Tender, No Organomegaly, No Distention Extremities: Non-Tender, No Pedal Edema - Patient Data Lab Results Last 24 hrs: Laboratory Results - last 24 hr 03/28/21 03/29/21 Range/Units 18:13 05:10 Sodium 131 L (140-148) mmol/L Potassium 4.5 4.7 (3.6-5.2) mmol/L Chloride 97 L (100-108) mmol/L Carbon Dioxide 25 (21-32) mmol/L Anion Gap 13.7 (5.0-14.0) mmol/L BUN 28 H (7-18) mg/dL Creatinine 1.1 H (0.6-1.0) mg/dL Est Cr Clr Drug Dosing 32.29 mL/min Estimated GFR (MDRD) 47 L (>60) Glucose 184 H (74-106) mg/dL Calcium 8.6 (8.5-10.1) mg/dL Result Diagrams: 03/28/21 05:40 03/29/21 05:10 Sepsis Event Note - Evaluation Sepsis Screening Result: No Definite Risk - Focused Exam Vital Signs: Vital Signs Temp Pulse Resp BP Pulse Ox 03/29/21 10:09 97.6 F 74 18 111/51 L 94 L 03/29/21 08:14 97.7 F 69 18 130/81 92 L 03/29/21 02:54 98.0 F 65 20 125/58 L 89 L - Problem List Review Problem List Initiated/Reviewed/Updated: Yes - My Orders Last 24 Hours: My Active Orders 03/30/21 05:00 CBC WITH AUTO DIFF [HEME] Timed COMPREHENSIVE METABOLIC PN,CMP [CHEM] Timed 03/30/21 05:11 CRP [C-REACTIVE PROTEIN] [CHEM] AM D Dimer [D-DIMER QUANTITATIVE] [COAG] AM - Plan Plan:: ASSESSMENT AND PLAN COVID-19 pneumonia-complicated by acute respiratory failure with hypoxia. Symptom onset about 03/12. Stable with support from heated/high flow nasal cannula. Respiratory status is very compromised, but stable over the last 24 hours. -Lorazepam 0.5 mg p.o. every 4 hours as needed for anxiety -Remdesivir x5 days, completed -Dexamethasone 6 mg daily (day 11) -Baricitinib 2 mg daily (day 9) -Empiric antibiotics with doxycycline and ceftriaxone completed -Enoxaparin every 24 hours -Symptomatic management of cough and fever -Isolation precautions -D-dimer and CRP every 2 days Acute kidney injury-secondary to dehydration and poor intake. Creatinine has improved and remained stable. -Encourage oral intake Hypothyroidism- -Continue home supplement Maintenance issues - -DVT prophylaxis-enoxaparin -GI prophylaxis-PPI -Nutrition-regular -Ramsey catheter-not indicated CODE STATUS -DO NOT RESUSCITATE but intubation is okay Disposition -I anticipate discharge home after the hospital stay Primary care physician -Dr Khanh Villarreal
[2021-03-29] MEDS: Dexamethasone 4 MG/ML SDV IVPUSH SCH (17:01)
[2021-03-29] MEDS: Enoxaparin 40 MG/0.4 ML Syringe SUBCUT SCH (17:53)
[2021-03-30] MEDS: Acetaminophen 325 MG Tab PO PRN ×2 (04:10→10:42)
[2021-03-30] MEDS: Aspirin 81 MG Tab.Chew PO SCH (09:10)
[2021-03-30] MEDS: Levothyroxine 100 MCG Tab PO SCH (09:10)
[2021-03-30] MEDS: Pantoprazole 40 MG Tab.CR PO SCH (09:10)
[2021-03-30] MEDS: Magnesium Hydroxide 400 MG/5 ML Susp 30 ML Cup PO PRN (10:43)
[2021-03-30] MEDS: traMADol 50 MG Tab PO PRN (12:37)
--- NOTE | 2021-03-30 14:23 | PCM.PN ---
- General Info Date of Service: 03/30/21 Subjective Update: Ms. Martinted her high flow humidified oxygen, no significant change in respiratory status over the last 24 hours. She is more alert and interactive today and has noted some improvement in overall strength. Appetite remains fairly poor and she does become short of breath with minimal exertion. Functional Status: Reports: Urinating - Review of Systems General: Reports: Weakness, Fatigue. Denies: Fever, Chills Pulmonary: Reports: Shortness of Breath, Cough. Denies: Pleuritic Chest Pain, Sputum, Hemoptysis, Wheezing Cardiovascular: Reports: Dyspnea on Exertion. Denies: Chest Pain, Palpitations, Orthopnea, PND, Edema, Lightheadedness Gastrointestinal: Reports: No Symptoms Genitourinary: Reports: No Symptoms - Patient Data Vitals - Most Recent: Last Vital Signs Temp 97.8 F 03/30/21 12:00 Pulse 82 03/30/21 12:00 Resp 20 03/30/21 12:00 BP 137/69 03/30/21 12:00 Pulse Ox 87 L 03/30/21 12:00 Weight - Most Recent: 154 lb I&O - Last 24 Hours: Intake & Output 03/29/21 03/30/21 03/30/21 22:59 06:59 14:59 Intake Total 240 236 Balance 240 236 Lab Results Last 24 Hours: Laboratory Results - last 24 hr 03/30/21 03/30/21 03/30/21 Range/Units 05:00 05:00 05:00 WBC 13.5 H (4.5-11.0) K/uL RBC 4.13 (3.30-5.50) M/uL Hgb 13.0 (12.0-15.0) g/dL Hct 37.8 (36.0-48.0) % MCV 92 (80-98) fL MCH 32 H (27-31) pg MCHC 34 (32-36) % Plt Count 351 (150-400) K/uL Neut % (Auto) 95.2 H (36-66) % Lymph % (Auto) 3.2 L (24-44) % [place] % (Auto) 1.3 L (2-6) % Eos % (Auto) 0.2 L (2-4) % Baso % (Auto) 0.1 (0-1) % D-Dimer, Quantitative 6276.26 H (0.0-500.0) ng/mL Sodium 131 L (140-148) mmol/L Potassium 4.6 (3.6-5.2) mmol/L Chloride 97 L (100-108) mmol/L Carbon Dioxide 25 (21-32) mmol/L Anion Gap 13.6 (5.0-14.0) mmol/L BUN 25 H (7-18) mg/dL Creatinine 1.0 (0.6-1.0) mg/dL Est Cr Clr Drug Dosing 35.52 mL/min Estimated GFR (MDRD) 53 L (>60) Glucose 149 H (74-106) mg/dL Calcium 8.7 (8.5-10.1) mg/dL Total Bilirubin 0.3 (0.2-1.0) mg/dL AST 34 (15-37) U/L ALT 25 (12-78) U/L Alkaline Phosphatase 72 (46-116) U/L C-Reactive Protein (0.0-0.3) mg/dL Total Protein 6.4 (6.4-8.2) g/dL Albumin 1.9 L (3.4-5.0) g/dL Globulin 4.5 H (2.3-3.5) g/dL Albumin/Globulin Ratio 0.4 L (1.2-2.2) 03/30/21 Range/Units 05:00 WBC (4.5-11.0) K/uL RBC (3.30-5.50) M/uL Hgb (12.0-15.0) g/dL Hct (36.0-48.0) % MCV (80-98) fL MCH (27-31) pg MCHC (32-36) % Plt Count (150-400) K/uL Neut % (Auto) (36-66) % Lymph % (Auto) (24-44) % [place] % (Auto) (2-6) % Eos % (Auto) (2-4) % Baso % (Auto) (0-1) % D-Dimer, Quantitative (0.0-500.0) ng/mL Sodium (140-148) mmol/L Potassium (3.6-5.2) mmol/L Chloride (100-108) mmol/L Carbon Dioxide (21-32) mmol/L Anion Gap (5.0-14.0) mmol/L BUN (7-18) mg/dL Creatinine (0.6-1.0) mg/dL Est Cr Clr Drug Dosing mL/min Estimated GFR (MDRD) (>60) Glucose (74-106) mg/dL Calcium (8.5-10.1) mg/dL Total Bilirubin (0.2-1.0) mg/dL AST (15-37) U/L ALT (12-78) U/L Alkaline Phosphatase (46-116) U/L C-Reactive Protein 7.88 H (0.0-0.3) mg/dL Total Protein (6.4-8.2) g/dL Albumin (3.4-5.0) g/dL Globulin (2.3-3.5) g/dL Albumin/Globulin Ratio (1.2-2.2) Med Orders - Current: Current Medications Acetaminophen (Acetaminophen 325 Mg Tab) 650 mg PO Q4H PRN PRN Reason: Pain (Mild 1-3)/fever Last Admin: 03/30/21 10:42 Dose: 650 mg Documented by: Aspirin (Aspirin 81 Mg Tab.Chew) 81 mg PO DAILY [facility] Last Admin: 03/30/21 09:10 Dose: 81 mg Documented by: Baricitinib (Baricitinib 2 Mg Tab) 2 mg PO Q24H [facility] Stop: 04/03/21 14:31 Last Admin: 03/29/21 15:06 Dose: 2 mg Documented by: Benzonatate (Benzonatate 100 Mg Cap) 100 mg PO TID PRN PRN Reason: Cough Bisacodyl (Bisacodyl 10 Mg Supp) 10 mg RECTAL DAILY PRN PRN Reason: Constipation Last Admin: 03/27/21 13:48 Dose: 10 mg Documented by: Calcium Carbonate/Glycine (Calcium Carbonate 500 Mg Tab.Chew) 1,000 mg PO Q2H PRN PRN Reason: Indigestion Last Admin: 03/22/21 22:05 Dose: 1,000 mg Documented by: Dexamethasone (Dexamethasone 4 Mg/Ml Sdv) 6 mg IVPUSH Q24H [facility] Last Admin: 03/29/21 17:01 Dose: 6 mg Documented by: Diphenhydramine HCl (Diphenhydramine 25 Mg Cap) 25 mg PO Q4H PRN PRN Reason: Itching Last Admin: 03/23/21 04:00 Dose: 25 mg Documented by: Docusate Sodium (Docusate Sodium 100 Mg Cap) 100 mg PO Q12H PRN PRN Reason: Constipation Last Admin: 03/28/21 11:14 Dose: 100 mg Documented by: Enoxaparin Sodium (Enoxaparin 40 Mg/0.4 Ml Syringe) 40 mg SUBCUT Q24H [facility] Last Admin: 03/29/21 17:53 Dose: 40 mg Documented by: Guaifenesin/Dextromethorphan (Guaifenesin/Dextromethorphan 100-10 Mg/5 Ml Soln 10 Ml Cup) 10 ml PO Q4H PRN PRN Reason: Cough Levothyroxine Sodium (Levothyroxine 100 Mcg Tab) 100 mcg PO ACBREAKFAST [facility] Last Admin: 03/30/21 09:10 Dose: 100 mcg Documented by: Lorazepam (Lorazepam 2 Mg/Ml Sdv) 0.5 mg IVPUSH Q4H PRN PRN Reason: Nausea/Vomiting Last Admin: 03/25/21 12:50 Dose: 0.5 mg Documented by: Lorazepam (Lorazepam 0.5 Mg Tab) 0.5 mg PO Q4H PRN PRN Reason: Anxiety Magnesium Hydroxide (Magnesium Hydroxide 400 Mg/5 Ml Susp 30 Ml Cup) 30 ml PO Q12H PRN PRN Reason: Constipation Last Admin: 03/30/21 10:43 Dose: 30 ml Documented by: Melatonin (Melatonin 3 Mg Tab) 9 mg PO BEDTIME PRN PRN Reason: sleep Last Admin: 03/23/21 22:17 Dose: 9 mg Documented by: Ondansetron HCl (Ondansetron 4 Mg/2 Ml Sdv) 4 mg IV Q6H PRN PRN Reason: Nausea/Vomiting Ondansetron HCl (Ondansetron 4 Mg Tab.Dis) 4 mg PO Q6H PRN PRN Reason: Nausea able to take PO Last Admin: 03/28/21 19:48 Dose: 4 mg Documented by: Pantoprazole Sodium (Pantoprazole 40 Mg Tab.Cr) 40 mg PO ACBREAKFAST [facility] Last Admin: 03/30/21 09:10 Dose: 40 mg Documented by: Senna/Docusate Sodium (Docusate Sodium/Sennosides 50-8.6 Mg Tab) 1 tab PO BID PRN PRN Reason: Constipation Last Admin: 03/27/21 19:59 Dose: 1 tab Documented by: Sodium Chloride (Sodium Chloride 0.65% Nasal [place] 45 Ml Bottle) 0 ml MASTER Q2H PRN PRN Reason: Dryness Tramadol HCl (Tramadol 50 Mg Tab) 50 mg PO Q8H PRN PRN Reason: Pain (moderate 4-6) Last Admin: 03/30/21 12:37 Dose: 50 mg Documented by: Discontinued Medications Dexamethasone (Dexamethasone 4 Mg/Ml Sdv) 6 mg IVPUSH ONETIME ONE Stop: 03/19/21 16:36 Last Admin: 03/19/21 18:15 Dose: 6 mg Documented by: Enoxaparin Sodium (Enoxaparin 30 Mg/0.3 Ml Syringe) 30 mg SUBCUT Q24H [facility] Last Admin: 03/23/21 17:36 Dose: 30 mg Documented by: Remdesivir 200 mg/ Sodium (Chloride) 250 mls @ 250 mls/hr IV ONETIME ONE Stop: 03/19/21 14:59 Last Admin: 03/19/21 14:06 Dose: 250 mls/hr Documented by: Remdesivir 100 mg/ Sodium (Chloride) 100 mls @ 100 mls/hr IV Q24H [facility] Stop: 03/23/21 14:59 Last Admin: 03/23/21 14:06 Dose: 100 mls/hr Documented by: Doxycycline Hyclate 100 mg/ (Sodium Chloride) 100 mls @ 100 mls/hr IV Q12H [facility] Last Admin: 03/25/21 02:30 Dose: 100 mls/hr Documented by: Ceftriaxone Sodium 1 gm/ (Sodium Chloride) 50 mls @ 100 mls/hr IV Q24H [facility] Stop: 03/28/21 08:00 Last Admin: 03/27/21 16:50 Dose: 100 mls/hr Documented by: - Exam Quality Assessment: Supplemental Oxygen, DVT Prophylaxis General: Alert, Oriented, Cooperative, Moderate Distress Lungs: Decreased Breath Sounds, Crackles. No: Rales, Rhonchi, Wheezing Cardiovascular: Regular Rate, Regular Rhythm, No Murmurs GI/Abdominal Exam: Soft, Non-Tender, No Organomegaly, No Distention Extremities: Non-Tender, No Pedal Edema - Patient Data Lab Results Last 24 hrs: Laboratory Results - last 24 hr 03/30/21 03/30/21 03/30/21 Range/Units 05:00 05:00 05:00 WBC 13.5 H (4.5-11.0) K/uL RBC 4.13 (3.30-5.50) M/uL Hgb 13.0 (12.0-15.0) g/dL Hct 37.8 (36.0-48.0) % MCV 92 (80-98) fL MCH 32 H (27-31) pg MCHC 34 (32-36) % Plt Count 351 (150-400) K/uL Neut % (Auto) 95.2 H (36-66) % Lymph % (Auto) 3.2 L (24-44) % [place] % (Auto) 1.3 L (2-6) % Eos % (Auto) 0.2 L (2-4) % Baso % (Auto) 0.1 (0-1) % D-Dimer, Quantitative 6276.26 H (0.0-500.0) ng/mL Sodium 131 L (140-148) mmol/L Potassium 4.6 (3.6-5.2) mmol/L Chloride 97 L (100-108) mmol/L Carbon Dioxide 25 (21-32) mmol/L Anion Gap 13.6 (5.0-14.0) mmol/L BUN 25 H (7-18) mg/dL Creatinine 1.0 (0.6-1.0) mg/dL Est Cr Clr Drug Dosing 35.52 mL/min Estimated GFR (MDRD) 53 L (>60) Glucose 149 H (74-106) mg/dL Calcium 8.7 (8.5-10.1) mg/dL Total Bilirubin 0.3 (0.2-1.0) mg/dL AST 34 (15-37) U/L ALT 25 (12-78) U/L Alkaline Phosphatase 72 (46-116) U/L C-Reactive Protein (0.0-0.3) mg/dL Total Protein 6.4 (6.4-8.2) g/dL Albumin 1.9 L (3.4-5.0) g/dL Globulin 4.5 H (2.3-3.5) g/dL Albumin/Globulin Ratio 0.4 L (1.2-2.2) 03/30/21 Range/Units 05:00 WBC (4.5-11.0) K/uL RBC (3.30-5.50) M/uL Hgb (12.0-15.0) g/dL Hct (36.0-48.0) % MCV (80-98) fL MCH (27-31) pg MCHC (32-36) % Plt Count (150-400) K/uL Neut % (Auto) (36-66) % Lymph % (Auto) (24-44) % [place] % (Auto) (2-6) % Eos % (Auto) (2-4) % Baso % (Auto) (0-1) % D-Dimer, Quantitative (0.0-500.0) ng/mL Sodium (140-148) mmol/L Potassium (3.6-5.2) mmol/L Chloride (100-108) mmol/L Carbon Dioxide (21-32) mmol/L Anion Gap (5.0-14.0) mmol/L BUN (7-18) mg/dL Creatinine (0.6-1.0) mg/dL Est Cr Clr Drug Dosing mL/min Estimated GFR (MDRD) (>60) Glucose (74-106) mg/dL Calcium (8.5-10.1) mg/dL Total Bilirubin (0.2-1.0) mg/dL AST (15-37) U/L ALT (12-78) U/L Alkaline Phosphatase (46-116) U/L C-Reactive Protein 7.88 H (0.0-0.3) mg/dL Total Protein (6.4-8.2) g/dL Albumin (3.4-5.0) g/dL Globulin (2.3-3.5) g/dL Albumin/Globulin Ratio (1.2-2.2) Result Diagrams: 03/30/21 05:00 03/30/21 05:00 Sepsis Event Note - Evaluation Sepsis Screening Result: No Definite Risk - Focused Exam Vital Signs: Vital Signs Temp Pulse Resp BP Pulse Ox 03/30/21 12:00 97.8 F 82 20 137/69 87 L 03/30/21 07:00 94.8 F L 77 18 151/55 H 94 L - Problem List Review Problem List Initiated/Reviewed/Updated: Yes - Plan Plan:: ASSESSMENT AND PLAN COVID-19 pneumonia-complicated by acute respiratory failure with hypoxia. Symptom onset about 03/12. Stable with support from heated/high flow nasal cannula. Respiratory status is very compromised, but stable over the last few days. -Lorazepam 0.5 mg p.o. every 4 hours as needed for anxiety -Remdesivir x5 days, completed -Dexamethasone 6 mg daily (day 12) -Baricitinib 2 mg daily (day 10 of 14) -Empiric antibiotics with doxycycline and ceftriaxone completed -Enoxaparin every 24 hours -Symptomatic management of cough and fever -Isolation precautions -D-dimer and CRP every 2 days Acute kidney injury-secondary to dehydration and poor intake. Creatinine has improved and remained stable. -Encourage oral intake Hypothyroidism- -Continue home supplement Maintenance issues - -DVT prophylaxis-enoxaparin -GI prophylaxis-PPI -Nutrition-regular -[place] catheter-not indicated CODE STATUS -DO NOT RESUSCITATE but intubation is okay Disposition -I anticipate discharge home after the hospital stay Primary care physician -Dr Khanh Villarreal
--- NOTE | 2021-03-30 17:25 | PCM.SN.2 ---
- Free Text/Narrative Note: Ms. Espinoza is unfortunately taken a significant turn for the worse late this afternoon with increased shortness of breath, hypoxia, and increase in respiratory rate. Currently she is on the high flow humidified oxygen, in addition has a nonrebreather mask at 15 L. Current oxygen saturation with these interventions is 80% with a respiratory rate in the mid 30s. I discussed this with her and recommended that we consider intubation and mechanical ventilation. On admission she had stated that she would consider this if needed. At this time she does not want to proceed with intubation and understands that she will likely not survive this illness. She would like comfort cares, but also to continue current interventions. We will prescribe morphine 5 mg every hour as needed for comfort in addition to her lorazepam. Her son was present and I reviewed all of this with him. Because of her end-of-life care he will be allowed to visit her in the room.
[2021-03-30] MEDS: Morphine 10 MG/0.5 ML Oral Syringe BUCCAL PRN ×2 (17:43→19:42)
[2021-03-30] MEDS: Enoxaparin 40 MG/0.4 ML Syringe SUBCUT SCH (17:44)
[2021-03-30] MEDS: Dexamethasone 4 MG/ML SDV IVPUSH SCH (17:44)
[2021-03-31] MEDS: Morphine 10 MG/0.5 ML Oral Syringe BUCCAL PRN ×2 (03:44→07:31)
[2021-03-31] MEDS: Pantoprazole 40 MG Tab.CR PO SCH (07:32)
[2021-03-31] MEDS: Levothyroxine 100 MCG Tab PO SCH (07:33)
--- NOTE | 2021-03-31 08:40 | PCM.DCSUM1 ---
Discharge Summary - Hospital Course Brief History: Ms. Espinoza is an 85-year-old woman who was admitted through the emergency room with shortness of breath, hypoxia, and weakness, secondary to COVID-19 pneumonia. - Discharge Data Discharge Date: 03/31/21 Discharge Disposition: 20 Preliminary Cause of *Q: Respiratory Failure Condition: - Referral to [facility] Primary Care Physician: Ezio Villarreal MD - Discharge Diagnosis/Problem(s) (1) Pneumonia due to COVID-19 virus SNOMED Code(s): 633395815144484322 ICD Code: U07.1 - COVID-19; J12.82 - PNEUMONIA DUE TO CORONAVIRUS DISEASE 2019 Status: Acute Current Visit: Yes (2) Acute respiratory failure due to COVID-19 SNOMED Code(s): 097419921 ICD Code: U07.1 - COVID-19; J96.00 - ACUTE RESPIRATORY FAILURE, UNSP W HYPOXIA OR HYPERCAPNIA Status: Acute Current Visit: Yes (3) Acute kidney injury SNOMED Code(s): 98754458, 67334518 ICD Code: N17.9 - ACUTE KIDNEY FAILURE, UNSPECIFIED Status: Acute Current Visit: Yes - Patient Summary/Data Consults: Consultations 03/20/21 19:56 Consult to Respiratory Therapy [Respiratory Care Assess and Treatment] [CONS] Routine Comment: Physician Instructions: Special Instructions: start airvow Person Notified: denisa Date Notified: 03/20/21 Time Notified: 19:45 Hospital Course: Ms. Espinoza presented to the emergency room with about 1 week of progressive weakness, fatigue, myalgias, anorexia and subjective fevers and chills. She got sick a couple of days before and has had progression of her symptoms since that time. She has not previously been vaccinated. She came in today because she was so weak and appeared short of breath to her son. Work-up in the emergency room revealed evidence for COVID-19 infection with hypoxia. Initially she was on 10 L but is now down to 6 L. CRP moderately elevated. Chest x-ray showed patchy lower lung infiltrates. She was started on remdesivir and dexamethasone while in the emergency department. These medications were continued after admission to the hospital. Over the next few days of hospitalization she experiences a deterioration of her respiratory status and progressed to the point where she required high flow humidified oxygen. With the increase in oxygen requirements she was started on usual course of baric itinib as well as empiric IV antibiotic therapy using doxycycline and ceftriaxone. Through the rest of her hospital stay she continued to require the high flow humidified oxygen. She completed her full course of remdesivir as well as a 7-day course of the antibiotics. She continued to experience significant respiratory compromise. Oral intake was poor and she was started on liquid supplements for nutritional support. On the day prior to her she began to experience increased respiratory compromise with elevation in her respiratory rate. She was given additional supplemental oxygen and despite this had saturations that were in the high 70s and low 80s. I discussed this change of events with her and recommended that we consider intubation and mechanical ventilation. She refused these interventions and requested that she be kept comfortable with no further aggressive management. She was placed on comfort cares only and treated with lorazepam and morphine as needed for comfort. She on the morning of March 31, no attempts were made at resuscitation as per her previously expressed wishes. - Discharge Plan Home Medications: Home Meds Levothyroxine [Sythroid] 100 mcg PO DAILY 01/14/18 [History] Multivit-Min/Iron Fum/Folic AC [Pxiuj-Daxkmqv-Efkfzjqt Tablet] 1 tab PO DAILY 01/14/18 [History] Omeprazole 40 mg PO DAILY 01/14/18 [History] Aspirin 81 mg PO DAILY 07/25/19 [History] Calcium Carb/Vitamin D3/Vit K1 [Calcium + D Soft Chewable Tab] 1 tab PO DAILY 01/20/20 [History] Referrals: Ezio Villarreal MD [Primary Care Provider] - - Discharge Summary/Plan Comment DC Time >30 min.: No Total # of Minutes for Discharge Time: 15 - Patient Data Vitals - Most Recent: Last Vital Signs Temp 94.6 F L 03/31/21 07:11 Pulse 132 H 03/31/21 07:11 Resp 53 H 03/31/21 07:11 BP 109/78 03/31/21 07:11 Pulse Ox 76 L 03/31/21 07:11 Weight - Most Recent: 154 lb I&O - Last 24 hours: Intake & Output 03/30/21 03/31/21 03/31/21 22:59 06:59 14:59 Intake Total 120 Balance 120 Med Orders - Current: Current Medications Acetaminophen (Acetaminophen 325 Mg Tab) 650 mg PO Q4H PRN PRN Reason: Pain (Mild 1-3)/fever Last Admin: 03/30/21 10:42 Dose: 650 mg Documented by: Aspirin (Aspirin 81 Mg Tab.Chew) 81 mg PO DAILY [facility] Last Admin: 03/30/21 09:10 Dose: 81 mg Documented by: Baricitinib (Baricitinib 2 Mg Tab) 2 mg PO Q24H [facility] Stop: 04/03/21 14:31 Last Admin: 03/30/21 15:49 Dose: 2 mg Documented by: Benzonatate (Benzonatate 100 Mg Cap) 100 mg PO TID PRN PRN Reason: Cough Bisacodyl (Bisacodyl 10 Mg Supp) 10 mg RECTAL DAILY PRN PRN Reason: Constipation Last Admin: 03/27/21 13:48 Dose: 10 mg Documented by: Calcium Carbonate/Glycine (Calcium Carbonate 500 Mg Tab.Chew) 1,000 mg PO Q2H PRN PRN Reason: Indigestion Last Admin: 03/22/21 22:05 Dose: 1,000 mg Documented by: Dexamethasone (Dexamethasone 4 Mg/Ml Sdv) 6 mg IVPUSH Q24H [facility] Last Admin: 03/30/21 17:44 Dose: 6 mg Documented by: Diphenhydramine HCl (Diphenhydramine 25 Mg Cap) 25 mg PO Q4H PRN PRN Reason: Itching Last Admin: 03/23/21 04:00 Dose: 25 mg Documented by: Docusate Sodium (Docusate Sodium 100 Mg Cap) 100 mg PO Q12H PRN PRN Reason: Constipation Last Admin: 03/28/21 11:14 Dose: 100 mg Documented by: Enoxaparin Sodium (Enoxaparin 40 Mg/0.4 Ml Syringe) 40 mg SUBCUT Q24H [facility] Last Admin: 03/30/21 17:44 Dose: 40 mg Documented by: Guaifenesin/Dextromethorphan (Guaifenesin/Dextromethorphan 100-10 Mg/5 Ml Soln 10 Ml Cup) 10 ml PO Q4H PRN PRN Reason: Cough Levothyroxine Sodium (Levothyroxine 100 Mcg Tab) 100 mcg PO ACBREAKFAST [facility] Last Admin: 03/31/21 07:33 Dose: Not Given Documented by: Lorazepam (Lorazepam 2 Mg/Ml Sdv) 0.5 mg IVPUSH Q4H PRN PRN Reason: Nausea/Vomiting Last Admin: 03/25/21 12:50 Dose: 0.5 mg Documented by: Lorazepam (Lorazepam 0.5 Mg Tab) 0.5 mg PO Q4H PRN PRN Reason: Anxiety Last Admin: 03/30/21 15:59 Dose: 0.5 mg Documented by: Magnesium Hydroxide (Magnesium Hydroxide 400 Mg/5 Ml Susp 30 Ml Cup) 30 ml PO Q12H PRN PRN Reason: Constipation Last Admin: 03/30/21 10:43 Dose: 30 ml Documented by: Melatonin (Melatonin 3 Mg Tab) 9 mg PO BEDTIME PRN PRN Reason: sleep Last Admin: 03/23/21 22:17 Dose: 9 mg Documented by: Morphine Sulfate (Morphine 10 Mg/0.5 Ml Oral Syringe) 5 mg BUCCAL Q1H PRN PRN Reason: Dyspnea Last Admin: 03/31/21 07:31 Dose: 5 mg Documented by: Ondansetron HCl (Ondansetron 4 Mg/2 Ml Sdv) 4 mg IV Q6H PRN PRN Reason: Nausea/Vomiting Ondansetron HCl (Ondansetron 4 Mg Tab.Dis) 4 mg PO Q6H PRN PRN Reason: Nausea able to take PO Last Admin: 03/28/21 19:48 Dose: 4 mg Documented by: Pantoprazole Sodium (Pantoprazole 40 Mg Tab.Cr) 40 mg PO ACBREAKFAST [facility] Last Admin: 03/31/21 07:32 Dose: Not Given Documented by: Senna/Docusate Sodium (Docusate Sodium/Sennosides 50-8.6 Mg Tab) 1 tab PO BID PRN PRN Reason: Constipation Last Admin: 03/27/21 19:59 Dose: 1 tab Documented by: Sodium Chloride (Sodium Chloride 0.65% Nasal [place] 45 Ml Bottle) 0 ml MASTER Q2H PRN PRN Reason: Dryness Tramadol HCl (Tramadol 50 Mg Tab) 50 mg PO Q8H PRN PRN Reason: Pain (moderate 4-6) Last Admin: 03/30/21 12:37 Dose: 50 mg Documented by: Discontinued Medications Dexamethasone (Dexamethasone 4 Mg/Ml Sdv) 6 mg IVPUSH ONETIME ONE Stop: 03/19/21 16:36 Last Admin: 03/19/21 18:15 Dose: 6 mg Documented by: Enoxaparin Sodium (Enoxaparin 30 Mg/0.3 Ml Syringe) 30 mg SUBCUT Q24H [facility] Last Admin: 03/23/21 17:36 Dose: 30 mg Documented by: Remdesivir 200 mg/ Sodium (Chloride) 250 mls @ 250 mls/hr IV ONETIME ONE Stop: 03/19/21 14:59 Last Admin: 03/19/21 14:06 Dose: 250 mls/hr Documented by: Remdesivir 100 mg/ Sodium (Chloride) 100 mls @ 100 mls/hr IV Q24H [facility] Stop: 03/23/21 14:59 Last Admin: 03/23/21 14:06 Dose: 100 mls/hr Documented by: Doxycycline Hyclate 100 mg/ (Sodium Chloride) 100 mls @ 100 mls/hr IV Q12H [facility] Last Admin: 03/25/21 02:30 Dose: 100 mls/hr Documented by: Ceftriaxone Sodium 1 gm/ (Sodium Chloride) 50 mls @ 100 mls/hr IV Q24H [facility] Stop: 03/28/21 08:00 Last Admin: 03/27/21 16:50 Dose: 100 mls/hr Documented by: - Exam General: Reports: Other ()
== END 2021-03-31 12:45 | disposition expired | DRG 177 ==
LOC: JP.ED 11:53 → JP.ICU 16:58 → JP.2SS 03-23 13:05
PROVIDERS: ADMIT Internal Medicine; ATTEND Hospitalist
PROC: 8E0ZXY6 Isolation (ICD-10-PCS; principal; 2021-03-19)
PROC: XW033E5 Introduction of Remdesivir Anti-infective into Peripheral Vein, Percutaneous Approach, New Technology Group 5 (ICD-10-PCS; 2021-03-19)
PROC: 3E0333Z Introduction of Anti-inflammatory into Peripheral Vein, Percutaneous Approach (ICD-10-PCS; 2021-03-19)
PROC: 5A0955A Assistance with Respiratory Ventilation, Greater than 96 Consecutive Hours, High Flow/Velocity Cannula (ICD-10-PCS; 2021-03-20)
PROC: XW0DXM6 Introduction of Baricitinib into Mouth and Pharynx, External Approach, New Technology Group 6 (ICD-10-PCS; 2021-03-21)
DX: U07.1 COVID-19 (principal); J12.82 Pneumonia due to coronavirus disease 2019; J96.01 Acute respiratory failure with hypoxia; N17.9 Acute kidney failure, unspecified; H54.7 Unspecified visual loss; K21.9 Gastro-esophageal reflux disease without esophagitis; K44.9 Diaphragmatic hernia without obstruction or gangrene; Z66 Do not resuscitate; E86.0 Dehydration; K57.90 Diverticulosis of intestine, part unspecified, without perforation or abscess without bleeding; K22.70 Barrett's esophagus without dysplasia; M19.90 Unspecified osteoarthritis, unspecified site; M54.9 Dorsalgia, unspecified; G89.29 Other chronic pain; E03.9 Hypothyroidism, unspecified; Z98.49 Cataract extraction status, unspecified eye; Z88.8 Allergy status to other drugs, medicaments and biological substances; Z79.890 Hormone replacement therapy; Z79.82 Long term (current) use of aspirin; Z79.899 Other long term (current) drug therapy; Z90.49 Acquired absence of other specified parts of digestive tract; Z98.890 Other specified postprocedural states; Z51.5 Encounter for palliative care; Z85.828 Personal history of other malignant neoplasm of skin
CPT/HCPCS: 0241U; 36415; 51798; 71045; 80048; 80053; 84132; 84145; 85025; 85027; 85379; 86140; 87040; 94762; 96365; 99285; A9270-GY; J0696; J1100; J1650; J2060; J3490; J7050